=== PATIENT | female | born 1950 | race Caucasian/White ===

== ENCOUNTER → 2016-08-31 | Outpatient (CLI) | payer BC ==
[~2016-08-31] MED LIST: ACET-1138 PO; ACET-1256 PO; AMOX500T PO; ASPEC325 PO; ERGO500037 PO; FRRG PO; GABA600T PO; HYD50 PO; HYDR50TA3 PO; METF-384 PO; NCYSR50 PO; NVLGI7030 SC; POTA10CA28 PO; PRLSR20 PO; RXC5 PO; SIMV20TA2 PO; SITA100T3 PO; VTMD PO
[2016-08-31 13:49] LABS: BLOOD UREA NITROGEN 15 mg/dl (7-18); BUN/CREATININE RATIO 12.5 (10-20); CARBON DIOXIDE 29 mmol/L (21-32); CHLORIDE 101 mmol/L (98-107); CHOLESTEROL 121 mg/dl (0-200); GLUCOSE 133 mg/dl (70-99); SODIUM 138 mmol/L (136-145); TRIGLYCERIDES 148 mg/dl (0-150); VERY LOW DENSITY LIPOPROT CALC 30 mg/dl
[2016-08-31 13:53] LABS: ESTIMATED AVERAGE GLUCOSE 120 mg/dl; HA1C FLAG Normal (Normal)
[2016-08-31 13:54] LABS: CHOLESTEROL/HDL RATIO 3.8; HDL CHOLESTEROL 32 mg/dl; LDL CHOLESTEROL CALCULATED 59 mg/dl
== END | disposition home or self-care (01) ==
LOC: C.LABSPEC 12:17
PROVIDERS: ATTEND Internal Medicine
DX: Z00.00 Encounter for general adult medical examination without abnormal findings (principal); I10 Essential (primary) hypertension; E11.9 Type 2 diabetes mellitus without complications; E78.5 Hyperlipidemia, unspecified

== ENCOUNTER → 2016-09-02 | Outpatient (CLI) | payer BC | END | disposition home or self-care (01) | LOC: C.PAPS 08:31 | PROVIDERS: ATTEND Internal Medicine | DX: Z01.419 Encounter for gynecological examination (general) (routine) without abnormal findings (principal) ==

== ENCOUNTER 2016-09-09 18:39 | Inpatient (IN) | payer BC, OTHER ==
[~2016-09-09] VITALS: Ht 172.7 cm; Wt 116.9 kg
[~2016-09-09 18:39] MED LIST changes: -ACET-1256 PO; -AMOX500T PO; -ERGO500037 PO; -HYDR50TA3 PO
[2016-09-09] MEDS ORDERED: SODIUM CHLORIDE 0.9% 1000ML 1,000 ML IV ONE (18:58)
[2016-09-09] MEDS ORDERED: ACETAMINOPHEN 325 MG TAB PO ONE (19:00)
--- NOTE | 2016-09-09 19:11 | EMERGENCY ROOM VISIT NOTE ---
History Report prepared by Danilo: Kimberly Smalls Under the Supervision of: Dr. Shukri Palencia D.O. First contact with patient: 18:53 Chief Complaint: FEVER Stated Complaint: FALL, FEVER History of Present Illness The patient is a 66 year old female who presents to the Emergency Room with complaints of persistent fever starting 2 days ago. She reports that she got her pneumonia shot last week. Two days ago, she had fever, chills, and shivering. Her temperature has been as high as 103.6. This afternoon around 1500 she felt weak and fell. She was on the ground for 3 hours until her family found her because she was unable to get up. She has some coughing which is nonproductive. She denies any injury. She has a history of diabetes and high cholesterol. Source of History: patient, family Onset: 2 days ago Position: other (global) Quality: other (fever) Timing: other (persistent) Associated Symptoms: + chills, + cough, + fevers Note: Pt reports shivering. Review of Systems See HPI for pertinent positives & negatives. A total of 10 systems reviewed and were otherwise negative. Past Medical & Surgical Medical Problems: (1) PNEUMONIA, ELEV.TROP.,FALL (2) Right Knee DJD Family History No pertinent family history stated. Social History Smoking Status: Never Smoker Marital Status: single Occupation Status: retired Current/Historical Medications Scheduled Acetaminophen (Tylenol), 1,000 MG PO Q4 Ergocalciferol (Vitamin D 22802 Unit), 50,000 UNIT PO MONTHLY Gabapentin (Neurontin), 600 MG PO TID Hydrochlorothiazide (Hctz), 50 MG PO DAILY Insulin Aspart Protamine & Asp (Novolog Mix 70/30), 100 SC QAM Insulin Aspart Protamine & Asp (Novolog Mix 70/30), 75 SC QPM Metformin Hcl (Glucophage), 1,000 MG PO BID Omeprazole (Prilosec), 20 MG PO NOON Potassium Chloride (Micro-K Ext Rel), 20 MEQ PO BID Simvastatin (Zocor), 20 MG PO QPM Sitagliptin Phosphate (Januvia), 100 MG PO QAM Allergies Coded Allergies: Oxycodone (Verified Adverse Reaction, Unknown, NAUSEA WITH EMESIS, 11/20/15) Physical Exam Vital Signs Date Time Temp Pulse Resp B/P Pulse Ox O2 Delivery O2 Flow Rate FiO2 09/09/16 20:22 37.7 97 24 110/74 95 Nasal Cannula 3.0 09/09/16 19:24 99 09/09/16 19:01 95 Nasal Cannula 2.0 09/09/16 18:47 39.5 104 24 165/83 90 Room Air Physical Exam GENERAL: Patient is awake, alert, and non anxious appearing but comfortable. EYES: The conjunctivae are clear. The pupils are round and reactive. EARS, NOSE, MOUTH AND THROAT: The nose is without any evidence of any deformity. Mucous membranes are dry tongue is midline NECK: The neck is nontender and supple. RESPIRATORY: Lung sounds diminished throughout, rales at the right base, poor air movement was noted. CARDIOVASCULAR: Tachycardic rate, but regular rhythm, no definite murmurs noted to auscultation. GASTROINTESTINAL: The abdomen is soft. Bowel sounds are present in all quadrants. Abdomen is nontender MUSCULOSKELETAL/EXTREMITIES: There is no evidence of gross deformity full range of motion is noted in the hips and shoulders SKIN: There is no obvious evidence of any rash. There are no petechiae, pallor or cyanosis noted. NEUROLOGIC: Patient is awake alert and oriented x3 Medical Decision & Procedures ER Provider Diagnostic Interpretation: X-ray results as stated below per interpretation by me and the radiologist. CHEST ONE VIEW PORTABLE CLINICAL HISTORY: Sepsis. Fall. COMPARISON STUDY: Chest radiograph October 28, 2015. FINDINGS: There is no pneumothorax or pleural effusion. Moderate cardiomegaly is unchanged. There is no radiographic evidence of pulmonary edema. Left lung is clear. Asymmetric right mid and lower lung opacity measures approximately 11.2 cm. IMPRESSION: Extensive asymmetric right lung airspace opacity. Given the clinical history, this favors pneumonia. However, post treatment radiographs are recommended to exclude the possibility of an underlying mass. Electronically signed by: Gregor Berkowitz M.D. 09/09/2016 7:39 PM Dictated Date/Time: 09/09/2016 7:37 PM Laboratory Results 09/09/16 19:07 Red Blood Count 4.35, Mean Corpuscular Volume 90.3, Mean Corpuscular Hemoglobin 30.3, Mean Corpuscular Hemoglobin Concent 33.6, Mean Platelet Volume 9.8, Neutrophils (%) (Auto) 87.2, Lymphocytes (%) (Auto) 7.0, Monocytes (%) (Auto) 5.0, Eosinophils (%) (Auto) 0.2, Basophils (%) (Auto) 0.2, Neutrophils # (Auto) 8.05, Lymphocytes # (Auto) 0.65, Monocytes # (Auto) 0.46, Eosinophils # (Auto) 0.02, Basophils # (Auto) 0.02 09/09/16 19:07 Test 09/09/16 19:07 09/09/16 19:14 09/09/16 19:15 09/09/16 20:05 White Blood Count 9.24 K/uL (4.8-10.8) Red Blood Count 4.35 M/uL (4.2-5.4) Hemoglobin 13.2 g/dL (12.0-16.0) Hematocrit 39.3 % (37-47) Mean Corpuscular Volume 90.3 fL (80-100) Mean Corpuscular Hemoglobin 30.3 pg (25-34) Mean Corpuscular Hemoglobin Concent 33.6 g/dl (32-36) Platelet Count 130 K/uL (130-400) Mean Platelet Volume 9.8 fL (7.4-10.4) Neutrophils (%) (Auto) 87.2 % Lymphocytes (%) (Auto) 7.0 % Monocytes (%) (Auto) 5.0 % Eosinophils (%) (Auto) 0.2 % Basophils (%) (Auto) 0.2 % Neutrophils # (Auto) 8.05 K/uL (1.4-6.5) Lymphocytes # (Auto) 0.65 K/uL (1.2-3.4) Monocytes # (Auto) 0.46 K/uL (0.11-0.59) Eosinophils # (Auto) 0.02 K/uL (0-0.5) Basophils # (Auto) 0.02 K/uL (0-0.2) RDW Standard Deviation 46.8 fL (36.4-46.3) RDW Coefficient of Variation 14.2 % (11.5-14.5) Immature Granulocyte % (Auto) 0.4 % Immature Granulocyte # (Auto) 0.04 K/uL (0.00-0.02) Erythrocyte Sedimentation Rate 49 mm/hr (0-21) Prothrombin Time 12.2 SECONDS (9.0-12.0) Prothromb Time International Ratio 1.1 (0.9-1.1) Activated Partial Thromboplast Time 29.9 SECONDS (21.0-31.0) Partial Thromboplastin Ratio 1.2 Anion Gap 14.0 mmol/L (3-11) Est Creatinine Clear Calc Drug Dose 39.1 ml/min Estimated GFR () 31.5 Estimated GFR (Non- 27.2 BUN/Creatinine Ratio 9.5 (10-20) Calcium Level 8.8 mg/dl (8.5-10.1) Phosphorus Level 1.3 mg/dl (2.5-4.9) Magnesium Level 1.9 mg/dl (1.8-2.4) Total Bilirubin 1.0 mg/dl (0.2-1) Aspartate Amino Transf (AST/SGOT) 50 U/L (15-37) Alanine Aminotransferase (ALT/SGPT) 22 U/L (12-78) Alkaline Phosphatase 87 U/L (45-117) C-Reactive Protein 24.40 mg/dl (0-0.29) Pro-B-Type Natriuretic Peptide 640 pg/ml (0-900) Total Protein 7.8 gm/dl (6.4-8.2) Albumin 3.4 gm/dl (3.4-5.0) Globulin 4.4 gm/dl (2.5-4.0) Albumin/Globulin Ratio 0.8 (0.9-2) Lipase 96 U/L (73-393) Hepatitis C Antibody Screen NEG (NEG) Urine Color DK YELLOW Urine Appearance CLOUDY (CLEAR) Urine pH 5.5 (4.5-7.5) Urine Specific Arnold 1.030 (1.000-1.030) Urine Protein 3+ (NEG) Urine Glucose (UA) 2+ (NEG) Urine Ketones 1+ (NEG) Urine Occult Blood 3+ (NEG) Urine Nitrite NEG (NEG) Urine Bilirubin NEG (NEG) Urine Urobilinogen NEG (NEG) Urine Leukocyte Esterase TRACE (NEG) Urine WBC (Auto) 1-5 /hpf (0-5) Urine RBC (Auto) 0-4 /hpf (0-4) Urine Hyaline Casts (Auto) 10-30 /lpf (0-5) Urine Epithelial Cells (Auto) >30 /lpf (0-5) Urine Bacteria (Auto) NEG (NEG) Urine Renal Epithelial Cells /lpf (0-5) Urine Pathogenic Casts 1-5 WBC CASTS /lpf (0) Bedside Lactic Acid Venous 5.97 mmol/L (0.90-1.70) Venous Blood pH 7.45 (7.36-7.41) Venous Blood Partial Pressure CO2 32 mmHg (38.0-50.0) Venous Blood Partial Pressure O2 60 mmHg Venous Blood HCO3 22 meq/L Venous Blood Oxygen Saturation 90.0 % Venous Blood Base Excess -1.1 mmol/L Laboratory results per my review. Medications Administered Medications (Trade) Dose Ordered Sig/Luci Route Start Time Stop Time Status Last Admin Dose Admin Sodium Chloride (Nss 1000ml) 1,000 ml @ 999 mls/hr Q1H1M ONCE IV 09/09/16 18:58 09/09/16 19:58 DC 09/09/16 19:02 999 MLS/HR Acetaminophen (Tylenol Tab) 650 mg ONE ONCE PO 09/09/16 19:00 09/09/16 19:01 DC 09/09/16 19:06 650 MG Levofloxacin 750 mg 750 mg NOW STAT IV 09/09/16 19:51 09/09/16 19:52 DC 09/09/16 20:16 750 MG Sodium Chloride 1,000 ml @ 250 mls/hr Q4H STAT IV 09/09/16 20:37 09/09/16 23:31 DC 09/09/16 20:42 250 MLS/HR Ceftriaxone Sodium 2000 mg/ Dextrose 70 ml @ 100 mls/hr ONE STAT IV 09/09/16 21:10 09/09/16 21:51 DC 09/09/16 21:49 100 MLS/HR Sodium Chloride (Nss 1000ml) 1,000 ml @ 100 mls/hr Q10H IV 09/09/16 21:15 10/09/16 21:14 09/10/16 00:05 100 MLS/HR ECG Indication: other (fall) Rate (beats per minute): 104 Rhythm: sinus tachycardia Findings: other (inferior and lateral ST segment depression, no PVC) Comparison ECG Date: Change: ST segment changes new ED Course 185: The patient was evaluated in room B11B. A complete history and physical examination were performed. 1857: NSS 1000 ml @ 999 mls/hr IV. 1899: Acetaminophen 650 mg PO. 1950: Levofloxacin 750 mg IV. 2027: I reevaluated the patient. I discussed results and treatment plan with her. She verbalizes agreement and understanding. The patient will be evaluated for further management and care. 2034: I discussed the patient's case with Dr. Pierre, [facility] - internal medicine. The patient will be evaluated for further management. 2036: NSS 1000 ml @ 250 mls/hr IV. Medical Decision Prior records/ancillary studies reviewed. Triage Nursing notes reviewed. Additional history obtained from family. Medication Reconciliation: I attest that I have personally reviewed the patient' s current medications list. The patient's history was concerning for fever. Differential diagnosis: Etiologies such as viral syndrome, otitis, pharyngitis, pneumonia, influenza, meningitis, urinary tract infection, sepsis, bacteremia, as well as others were entertained. The patient is an 66-year-old female who presented to the emergency department for an evaluation of fever weakness. The patient states that she started feeling weak over the last few days. She noted she had a fever and went to see her family doctor. At that time she was feeling somewhat better after taking antipyretics. Her family doctor encouraged her to get a pneumonia vaccination and schedule her for follow-up appointments. The patient continued to experience fever while at home. She tried to treat herself at home but became very weak and fell and was unable to stand. She appeared to have signs of a right-sided pneumonia on chest x-ray. She was treated with IV fluids and antipyretics and IV antibiotics in the emergency department. I discussed the patient's laboratory and radiographic studies with her which included pneumonia on chest x-ray as well as an elevated CPK which I feel is secondary to the patient's falling and lying on the floor for multiple hours. I discussed her case with her primary care physician who is agreed to evaluate the patient in the emergency department for further management and disposition. Consults Time Called: 2029 Consulting Physician: Dr. Pierre, [facility] - internal medicine Returned Call: 2034 I discussed the patient's case with him. The patient will be evaluated for further management. Impression Primary Impression: Pneumonia Additional Impressions: Fever Rhabdomyolysis Acute kidney injury Weakness Scribe Attestation The scribe's documentation has been prepared under my direction and personally reviewed by me in its entirety. I confirm that the note above accurately reflects all work, treatment, procedures, and medical decision making performed by me. Departure Information Dispostion Being Evaluated By Hospitalist Referrals Jose Miguel Garcia M.D. (PCP) Patient Instructions My [facility] Problem Qualifiers Primary Impression: Pneumonia Pneumonia type: due to unspecified organism Laterality: right Lung location : unspecified part of lung Qualified Codes: J18.9 - Pneumonia, unspecified organism Additional Impressions: Fever Fever type: unspecified Qualified Codes: R50.9 - Fever, unspecified Rhabdomyolysis Rhabdomyolysis type: traumatic Encounter type: initial encounter Qualified Codes: T79.6XXA - Traumatic ischemia of muscle, initial encounter
[2016-09-09 19:38] LABS: HEMATOCRIT 39.3 % (37-47); MEAN CELL VOLUME 90.3 fL (80-100); MEAN CORPUSCULAR HEMOGLOBIN 30.3 pg (25-34); MEAN CORPUSCULAR HGB CONC 33.6 g/dl (32-36); MEAN PLATELET VOLUME 9.8 fL (7.4-10.4); PLATELET COUNT 130 K/uL (130-400); RED BLOOD COUNT 4.35 M/uL (4.2-5.4); WHITE BLOOD COUNT 9.24 K/uL (4.8-10.8)
[2016-09-09 19:40] LABS: URINE APPEARANCE CLOUDY (CLEAR); URINE COLOR DK YELLOW; URINE EPITHELIAL CELL AUTO >30 /lpf (0-5); URINE NITRITE NEG (NEG); URINE PH 5.5 (4.5-7.5); UROBILINOGEN NEG (NEG); ZZURINE CULT IF INDIC CATH NO
--- NOTE | 2016-09-09 19:40 | DIAGNOSTIC IMAGING REPORT ---
CHEST ONE VIEW PORTABLE CLINICAL HISTORY: Sepsis. Fall. COMPARISON STUDY: Chest radiograph October 28, 2015. FINDINGS: There is no pneumothorax or pleural effusion. Moderate cardiomegaly is unchanged. There is no radiographic evidence of pulmonary edema. Left lung is clear. Asymmetric right mid and lower lung opacity measures approximately 11.2 cm. IMPRESSION: Extensive asymmetric right lung airspace opacity. Given the clinical history, this favors pneumonia. However, post treatment radiographs are recommended to exclude the possibility of an underlying mass. Electronically signed by: Gregor Berkowitz M.D. 09/09/2016 7:39 PM Dictated Date/Time: 09/09/2016 7:37 PM
[2016-09-09 19:47] LABS: INR 1.1 (0.9-1.1); PARTIAL THROMBOPLASTIN RATIO 1.2; PROTHROMBIN TIME (PATIENT) 12.2 SECONDS (9.0-12.0)
[2016-09-09] MEDS ORDERED: LEVAQUIN 750MG / 150ML D5W IV STA (19:51)
[2016-09-09 19:55] LABS: MANUAL MICROSCOPIC REQUIRED? NO; REVIEW REQ? YES; URINE BILIRUBIN NEG (NEG)
[2016-09-09 20:00] LABS: BASO % 0.2 %; BASO ABS # 0.02 K/uL (0-0.2); COMPLETE YES; EOS % 0.2 %; IG% 0.4 %; LYMPH ABS # 0.65 K/uL (1.2-3.4); NEUT % 87.2 %
[2016-09-09 20:01] LABS: BUN/CREATININE RATIO 9.5 (10-20); CALCIUM 8.8 mg/dl (8.5-10.1); CREATININE 1.9 mg/dl (0.60-1.20); MAGNESIUM 1.9 mg/dl (1.8-2.4); POTASSIUM 3.9 mmol/L (3.5-5.1)
[2016-09-09 20:11] LABS: URINE PATH CASTS 1-5 WBC CASTS /lpf (0)
[2016-09-09 20:26] LABS: VEN BLOOD GAS BASE EXCESS -1.1 mmol/L; VENOUS BLOOD GAS PCO2 32 mmHg (38.0-50.0); VENOUS BLOOD GAS PO2 60 mmHg
[2016-09-09 20:34] LABS: ALB/GLOB RATIO 0.8 (0.9-2); C-REACTIVE PROTEIN 24.4 mg/dl (0-0.29); CKMB/CK RATIO 0.1 (0-3.0); PHOSPHORUS 1.3 mg/dl (2.5-4.9)
[2016-09-09] MEDS ORDERED: SODIUM CHLORIDE 0.9% 1000ML 1,000 ML IV STA (20:37)
[2016-09-09] MEDS ORDERED: ACET-1256 PO (20:45)
[2016-09-09] MEDS ORDERED: ERGO500037 PO (20:49)
[2016-09-09] MEDS ORDERED: HYDR50TA3 PO (20:49)
[2016-09-09] MEDS ORDERED: SODIUM PHOSPHATE 3 MMOL/1 ML INFUSION IV STA (21:10)
[2016-09-09] MEDS ORDERED: CEFTRIAXONE SOD INJ 2,000 MG in DEXTROSE 5% 50ML 50 ML IV STA (21:10)
[2016-09-09] MEDS ORDERED: SODIUM PHOSPHATE INJ 21 MMOL in SODIUM CHLORIDE 0.9% 500ML 500 ML IV STA (21:37)
[2016-09-09 23:13] VITALS: BP 127/78; PULSE 87; TEMP 37; O2SAT 87; Ht 172.7 cm; Wt 116.9 kg
--- NOTE | 2016-09-09 23:48 | HISTORY & PHYSICAL EXAMINATION ---
DATE OF ADMISSION: 09/09/2016 REASON FOR ADMISSION: A 66-year-old female admitted with fever and chills and evidence of right-sided pneumonia. HISTORY OF PRESENT ILLNESS: The patient with multiple medical problems including type 2 diabetes mellitus, history of renal cell carcinoma status post left nephrectomy, chronic kidney disease, arterial hypertension, sleep apnea, chronic thrombocytopenia. The patient was seen in the office on 09/02/2016 for her yearly physical examination. At that time, she was doing quite well. Her laboratory tests were all checked, her diabetes was well under control and her blood pressure was controlled. Her examination was quite unremarkable. Two days ago, on Monday, she started feeling ill. She had fever up to 103. She was complaining of chills and sweating. When I saw her in the office on 09/02/2016, she was given a Pneumovax. She describes that she was having some inflammation and irritation in the site of the Pneumovax injection. Initially, I thought that she was most likely having an allergic reaction to the Pneumovax. She was asked to take Tylenol. Subsequently, the patient started to have nasal and chest congestion. She was complaining of cough. Did not produce any purulent sputum. She was having fever and chills. She was getting short of breath. This afternoon around 3:30, she was at home. She stood up to walk and she felt lightheaded and she fell to the floor. She could not get up on her own. She stayed on the floor for about 3-1/2 hours until a family member came to her assistance. Ambulance was called and the patient was brought to the Emergency Room. She was evaluated by Dr. Palencia. Multiple tests were done. Her chest x-ray showed evidence of extensive right-sided pneumonia. I saw the patient in the Emergency Room. She was feeling acutely ill. Feeling weak and tired. She was sweating. Initially in the Emergency Room, her temperature was 39.5. After the cultures were done, Dr. Palencia started her on IV Levaquin and she received one dose. She was also given IV fluid. After I saw Ms. Thompson in the Emergency Room because of her condition and also the noted elevation in her troponin I, she was admitted to PCU with telemetry for further evaluation. PAST MEDICAL HISTORY: 1. Arterial hypertension. Longstanding. Treated. 2. Type 2 diabetes mellitus. First diagnosed in 2001. She has complications with peripheral neuropathy and also retinopathy. 3. Sleep apnea diagnosed in 2006. She uses a CPAP with a pressure of 8 cm. 4. Right total knee arthroplasty for severe osteoarthritis done on 11/20/2015. 5. Renal cell carcinoma diagnosed in May of 2007. She was seen in the office for her regular followup and on examination, she had a mass in the upper abdominal area. A CT scan of the abdomen and pelvis was done which showed evidence of a renal mass. Subsequently, she had a left nephrectomy. Her condition has been monitored. She has no evidence of any reoccurrence. SOCIAL HISTORY: She is single. No children. She is retired. She does have a history of smoking, but she has not smoked for at least 15 years. Denied any alcohol. FAMILY HISTORY: Her mother in her 70s, she had metastatic renal cell carcinoma. She was diagnosed with a renal cell carcinoma about 4 years prior to her and she was treated with cryotherapy at [facility] and subsequently she had recurrence of her disease with lung metastases. Her father also in his 70s, has coronary artery disease, he was also diabetic. One sister at age 32 of respiratory failure. ALLERGIES: GI INTOLERANCE WITH OXYCODONE. MEDICATIONS ON ADMISSION: All as noted. REVIEW OF SYSTEMS: She is feeling acutely ill. Feeling weak and tired. She has had fever, chills. Sweating profusely. Denied any earache or sore throat. No neck pain. Denied any chest pain. She is coughing. Not producing any significant sputum up to this point. Denied any abdominal pain. No nausea, no vomiting. No problem with her bowel movements. No urinary problem. No pain in her back or extremities. No edema. PHYSICAL EXAMINATION: GENERAL: Well developed. Acutely ill. Her recorded weight is 114.2 kg, height 172.7 cm, BMI 38.2. VITAL SIGNS: On arrival to the Emergency Room, her blood pressure was 165/83, pulse 104, respirations 24, temperature 39.5, oxygen saturation 90% on room air. SKIN: Warm and dry. Flushed. HEENT: She wears glasses for reading. As noted, she has been diagnosed in the past with retinopathy. She does have dentures. NECK: Supple. Nontender. No adenopathy, no thyromegaly. No JVD. Normal carotid pulses. No carotid bruit. CHEST: Normal. HEART: Regular heart sounds. No evident murmur, rub, or gallop. LUNGS: Rales, right lung field. Some wheezing bilaterally. Rhonchi. ABDOMEN: Soft, nontender, without organomegaly or masses. Surgical scars. BACK: No spinal tenderness. EXTREMITIES: No edema, clubbing, or cyanosis. She does have a right knee effusion since her surgery. Scar right knee from prior surgery. Good pulses. Bruised left elbow. NEUROLOGIC: She is awake, alert and oriented without evidence of any lateralized deficit. She does have known peripheral neuropathy. LABORATORY TESTS: WBC count 9240, hemoglobin 13.2, hematocrit 39.3, platelet count 130,000. Sodium 132, potassium 3.9, chloride 95, CO2 23, BUN of 18, creatinine 1.9, glucose 251. Calcium 8.8, phosphorus 1.3, magnesium 1.9, total bilirubin 1.0, AST 50, ALT 22, alkaline phosphatase 87. Total CK 4267, MB fraction 3.2, troponin I 0.466. C-reactive protein 24.4. BNP 640, total protein 7.8, albumin 3.4, globulin 4.4, lipase 9.6. Her urinalysis showed 3+ protein, 2+ glucose, 1+ ketones and 3+ blood, leukocyte esterase were trace. IMAGING DATA: Her electrocardiogram showed no acute changes. Her chest x-ray showed an extensive right lung airspace opacity consistent with pneumonia. The opacity measured 11.2 cm. ASSESSMENT: 1. Right-sided pneumonia. 2. Rule out sepsis. 3. Acute renal failure. 4. Chronic kidney disease. 5. History of renal cell carcinoma status post left nephrectomy. 6. Type 2 diabetes mellitus. 7. Arterial hypertension. 8. Sleep apnea. 9. Osteoarthritis. PLAN: The patient was admitted to PCU with telemetry. Resuscitation level 1. All her laboratory tests were ordered. Cultures were done. Cardiac isoenzymes and serial electrocardiograms were ordered. The marked elevation in her total CK is most likely related to her fall and the fact that she was on the floor for about 3-1/2 hours and she does have an acute febrile illness. Dr. Palencia did give her a dose of Levaquin. Her antibiotic was changed to Rocephin and Zithromax. IV fluid. Correcting her phosphorus. Will ask a family member to bring her CPAP from home, so she can use it during her hospitalization. Her condition is being monitored. All her laboratory tests and cultures were done. She is on IV antibiotics, also given Xopenex high flow treatment. Tylenol for any fever. Subcutaneous heparin and ROMÁN stockings for DVT prophylaxis. OLESYA
[2016-09-10] VITALS (10 sets, daily range): BP systolic 111–136; BP diastolic 67–80; PULSE 70–96; TEMP 37–38.6; O2SAT 92–98
[2016-09-10] MEDS: SODIUM CHLORIDE 0.9% 1000ML 1,000 ML IV SCH ×3 (00:05→19:41)
[2016-09-10] MEDS: INSULIN ASPART 100 UNITS/ML 3 ML PEN SC SCH ×5 (00:44→20:42)
[2016-09-10 01:40] LABS: CKMB/CK RATIO 0.1 (0-3.0)
[2016-09-10] MEDS: LEVALBUTEROL 1.25MG/3ML NEB INH SCH ×4 (02:09→19:11)
[2016-09-10] MEDS: ACETAMINOPHEN 325 MG TAB PO PRN ×3 (04:37→20:44)
[2016-09-10] MEDS: AZITHROMYCIN IV 500 MG in DEXTROSE 5% 250ML 250 ML IV SCH (05:34)
[2016-09-10 06:42] LABS: BASO % 0.2 %; BASO ABS # 0.01 K/uL (0-0.2); COMPLETE YES; HEMATOCRIT 33.8 % (37-47); IG% 0.2 %; LYMPH ABS # 0.82 K/uL (1.2-3.4); MEAN CELL VOLUME 90.1 fL (80-100); MEAN CORPUSCULAR HEMOGLOBIN 30.7 pg (25-34); MEAN PLATELET VOLUME 9.6 fL (7.4-10.4); MONO % 10.8 %; NEUT % 73.8 %; PLATELET COUNT 109 K/uL (130-400); RED BLOOD COUNT 3.75 M/uL (4.2-5.4); WHITE BLOOD COUNT 5.86 K/uL (4.8-10.8)
[2016-09-10 07:32] LABS: ALB/GLOB RATIO 0.7 (0.9-2); BUN/CREATININE RATIO 12.8 (10-20); CALCIUM 7.8 mg/dl (8.5-10.1); CREATININE 1.4 mg/dl (0.60-1.20); MAGNESIUM 1.8 mg/dl (1.8-2.4)
[2016-09-10 07:43] LABS: CKMB/CK RATIO 0.1 (0-3.0); PHOSPHORUS 2.2 mg/dl (2.5-4.9)
[2016-09-10] MEDS ORDERED: POTASSIUM PHOS 3 MMOL/1 ML INFUSION IV STA (08:10)
[2016-09-10] MEDS: HEPARIN SOD 5000 UNIT/0.5 ML CARP SQ SCH ×2 (08:35→20:42)
[2016-09-10] MEDS ORDERED: POTASSIUM CHLORIDE 10 MEQ TABCR PO ONE (08:45)
[2016-09-10] MEDS ORDERED: POTASSIUM PHOSPHATE INJ 15 MMOL in SODIUM CHLORIDE 0.9% 250ML 250 ML IV SCH (09:00)
--- NOTE | 2016-09-10 16:22 | PROGRESS NOTE ---
DATE: 09/10/2016 A 66-year-old female admitted with multiple problems includin. Right-sided pneumonia, extensive. 2. Suspected sepsis. 3. Acute renal failure. 4. Chronic kidney disease. 5. Rhabdomyolsis. 6. History of renal cell carcinoma with history of left nephrectomy. 7. Type 2 diabetes mellitus. 8. Arterial hypertension. 9. Elevated troponin I. The patient was admitted. Cultures were done. She was started on IV antibiotics. She did receive 1 dose of Levaquin 750 mg in the Emergency Room. Subsequently, she was started on Rocephin and Zithromax. Overall, her condition is slightly improved. She is still feeling weak and achy all over. Her maximum temperature was 38 degrees at 427 this morning but subsequently she has been afebrile. She is feeling weak and tired. She denied any headache. No dizziness. No chest pain. No shortness of breath. She is having a cough, not producing any sputum yet. No abdominal pain, no nausea, no vomiting. No problem urinating. She is complaining of generalized aches and pains. PHYSICAL EXAMINATION: GENERAL: Well-developed in no distress. VITAL SIGNS: Blood pressure 115/72, pulse 79, respirations 18, temperature 37.2, oxygen saturation 95% on 2 liter oxygen by nasal cannula. SKIN: Warm and dry. No rash. HEENT: No mucosal abnormality. NECK: No JVD. No adenopathy. HEART: Regular heart sounds. LUNGS: Rales right side. No wheezing. ABDOMEN: Soft, nontender. BACK: No spinal tenderness. EXTREMITIES: No edema, clubbing, or cyanosis. TODAY'S LABORATORY TESTS: WBC count 5860, hemoglobin 11.5, hematocrit 33.8, platelet count 109,000. Sodium 137, potassium 3.0, chloride 101, CO2 24, BUN 18, creatinine 1.4, glucose 175, calcium 7.8, phosphorus 2.2, magnesium 1.8, total bilirubin 0.6, AST 198, ALT 43, alkaline phosphatase 65, total CPK 13,668, MB fraction 11.6, troponin I 1.58, total protein 6.6, albumin 2.6, globulin 4.0. ASSESSMENT: 1. Right-sided pneumonia, extensive. 2. Rhabdomyolysis. 3. Fall. She spent about 3-1/2 hours on the floor before she was able to get any help to help her up. 4. Hypokalemia. 5. Hypophosphatemia. 6. Type 2 diabetes mellitus. 7. Arterial hypertension. 8. History of renal cell carcinoma status post left nephrectomy. 9. Acute and chronic kidney disease. PLAN: 1. Continuing the same medications. 2. We will correct her potassium and phosphorus. 3. Continue IV fluid. Continue Rocephin and Zithromax. 4. We will continue monitoring her laboratory tests. 5. Cultures are still pending. 6. We will gradually increase her activity.
[2016-09-10] MEDS: CEFTRIAXONE SOD INJ 2,000 MG in DEXTROSE 5% 50ML 50 ML IV SCH (21:10)
[2016-09-11] VITALS (10 sets, daily range): BP systolic 113–122; BP diastolic 61–74; PULSE 76–88; TEMP 36.8–37.6; O2SAT 90–94
[2016-09-11] MEDS: LEVALBUTEROL 1.25MG/3ML NEB INH SCH ×4 (02:04→19:05)
[2016-09-11] MEDS: AZITHROMYCIN IV 500 MG in DEXTROSE 5% 250ML 250 ML IV SCH (05:15)
[2016-09-11] MEDS: SODIUM CHLORIDE 0.9% 1000ML 1,000 ML IV SCH ×3 (05:16→22:12)
[2016-09-11 06:24] LABS: BASO % 0.4 %; BASO ABS # 0.02 K/uL (0-0.2); COMPLETE YES; EOS % 2.7 %; HEMATOCRIT 32.7 % (37-47); IG% 0.4 %; LYMPH % 14.9 %; LYMPH ABS # 0.71 K/uL (1.2-3.4); MEAN CELL VOLUME 89.1 fL (80-100); MEAN CORPUSCULAR HGB CONC 33.6 g/dl (32-36); MEAN PLATELET VOLUME 9.5 fL (7.4-10.4); MONO % 9.3 %; NEUT % 72.3 %; PLATELET COUNT 109 K/uL (130-400); RED BLOOD COUNT 3.67 M/uL (4.2-5.4); WHITE BLOOD COUNT 4.75 K/uL (4.8-10.8)
[2016-09-11 07:22] LABS: BUN/CREATININE RATIO 12.5 (10-20); CALCIUM 7.6 mg/dl (8.5-10.1); CREATININE 1.2 mg/dl (0.60-1.20); MAGNESIUM 1.8 mg/dl (1.8-2.4); POTASSIUM 3.6 mmol/L (3.5-5.1)
[2016-09-11 07:46] LABS: ALB/GLOB RATIO 0.7 (0.9-2); PHOSPHORUS 1.8 mg/dl (2.5-4.9)
[2016-09-11] MEDS: INSULIN ASPART 100 UNITS/ML 3 ML PEN SC SCH ×4 (08:02→21:00)
[2016-09-11] MEDS: HEPARIN SOD 5000 UNIT/0.5 ML CARP SQ SCH ×2 (08:03→21:01)
[2016-09-11] MEDS ORDERED: POTASSIUM PHOS 3 MMOL/1 ML INFUSION IV STA (08:15)
[2016-09-11] MEDS ORDERED: POTASSIUM PHOSPHATE INJ 21 MMOL in SODIUM CHLORIDE 0.9% 500ML 500 ML IV SCH (09:00)
--- NOTE | 2016-09-11 16:48 | PROGRESS NOTE ---
DATE: 09/11/2016 A 66-year-old female admitted with multiple problems includin. Extensive right mid and lower lung pneumonia. 2. Fall. 3. Rhabdomyolysis. 4. Severe hypomagnesemia. 5. Sleep apnea. 6. Type 2 diabetes mellitus. 7. Arterial hypertension. 8. Hyperlipidemia. 9. History of renal cell carcinoma status post left nephrectomy. The patient was admitted. Cultures were done. All her laboratory tests were ordered. She was started on IV antibiotic with Rocephin and Zithromax. Prior to that, she received 1 dose of Levaquin 750 mg IV in the Emergency Room. She was started on high flow treatment, given oxygen by nasal canula. The patient is complaining of generalized weakness and fatigue and muscle ache, this is all related to her rhabdomyolysis. She denied any headache. No dizziness. No chest pain. No shortness of breath. Her oxygenation has improved. No abdominal pain, no nausea, no vomiting. She did have a bowel movement. No problem urinating. She is complaining of generalized ache and pain in her back and extremities. So far, all her cultures have been negative. PHYSICAL EXAMINATION: GENERAL: Well-developed in no distress. VITAL SIGNS: Blood pressure 119/71, pulse 85, respirations 16, temperature 37.1, oxygen saturation 92% on room air. SKIN: Warm and dry. No rash. Hirsutism. HEENT: She has dentures. No mucosal abnormalities. NECK: No JVD, no adenopathy. HEART: Regular heart sounds. LUNGS: Rales right side. No wheezing. ABDOMEN: Soft, nontender. BACK: No spinal tenderness. EXTREMITIES: No edema, clubbing, or cyanosis. TODAY'S LABORATORY TESTS: WBC count 4750, hemoglobin 11, hematocrit 32.7, platelet count 109,000. Sodium 136, potassium 3.6, chloride 102, CO2 25, BUN 15, creatinine 1.2, glucose 165, calcium 7.6, phosphorus 1.8, magnesium 1.8, AST 254, ALT 71, total CK 12,160, MB fraction 5.6, troponin I of 0.443, total protein 6.4, albumin 2.6. ASSESSMENT: 1. Right-sided pneumonia, extensive. 2. Fall. 3. Rhabdomyolysis. 4. Sleep apnea. 5. Hypophosphatemia. 6. Type 2 diabetes mellitus. 7. History of renal cell carcinoma with prior left nephrectomy. PLAN: 1. Continuing the same medications. 2. Continue correcting her electrolytes as needed. 3. As noted, all her cultures have been negative so far. 4. We will try to increase her activity gradually. 5. An echocardiogram was ordered. 6. Her CK and CK-MB and troponin I are drifting down. We will continue monitoring. 7. We will repeat a chest x-ray tomorrow.
--- NOTE | 2016-09-11 17:46 | ECHOCARDIOGRAM REPORT ---
*NOTICE TO RECEIVING REPUBLICAN AGENCY This information is strictly Confidential and protected under [place] law. [place] law prohibits you from making any further disclosure of this information unless further disclosure is expressly permitted by the written consent of the person to whom it pertains or is authorized by law. A general authorization for the release of medical or other information is not sufficient for this purpose. Hospital accepts no responsibility if the information is made available to any other person, INCLUDING THE PATIENT. Interpretation Summary * Name: LIZABETH ALMENDAREZ Study Date: 09/11/2016 01:27 PM BP: 119/71 mmHg * Patient Location: C.2T\S\S239\S\1 HR: 77 * : 1950 (M/d/yyyy) Gender: Female Height: 68 in * Age: 66 yrs Ethnicity: [place] Weight: 257 lb * Ordering Physician: Jose Miguel Garcia * Referring Physician: Self, Referred * Performed By: Gino Arceo RDCS * * Reason For Study: Elevated troponin * BSA: 2.3 m2 * -- Conclusions -- * 1. Normal left ventricular size and systolic function. EF 60-65%. No regional wall motion abnormalities. Moderate concentric left ventricular hypertrophy. * 2. Trace aortic regurgitation. Procedure Details * A complete two-dimensional transthoracic echocardiogram was performed (2D, M-mode, Doppler and color flow Doppler). * The study was technically adequate. Left Ventricle * Normal left ventricular size and systolic function. EF 60-65%. No regional wall motion abnormalities. Moderate concentric left ventricular hypertrophy. Right Ventricle * The right ventricle is normal in size and function. * The right ventricular systolic function is normal as assessed by tricuspid annular plane systolic excursion (TAPSE) (normal >1.5 cm). Atria * The left atrium is borderline dilated. * Right atrial size is normal. * There is no evidence of atrial septal defect, but resolution does not allow assessment for a patent foramen ovale. Mitral Valve * The mitral valve is grossly normal. * There is no mitral valve stenosis. * Trace to mild mitral regurgitation. Tricuspid Valve * The tricuspid valve is not well visualized. * There is no tricuspid stenosis. * There is trace tricuspid regurgitation. Aortic Valve * The aortic valve is trileaflet. * No hemodynamically significant valvular aortic stenosis. * Trace aortic regurgitation. Pulmonic Valve * The pulmonary valve is inadequately visualized, but the Doppler data is adequate for interpretation. * There is no pulmonic valvular stenosis. * Mild pulmonic valvular regurgitation. Great Vessels * Normal aortic root size for age adjusted BSA. * Normal pulmonary venous flow pattern. Pericardium/Pleural * There is no pericardial effusion. Great Vessels * Normal inferior vena cava size and collapsability with sniff indicates a normal right atrial pressure of 3 mmHg MMode 2D Measurements and Calculations IVSd 1.4 cm IVSs 2.1 cm LVIDd 5.2 cm LVIDs 3.4 cm LVPWd 1.4 cm LVPWs 2.1 cm IVS/LVPW 1.0 FS 34.0 % EDV(Teich) 129.3 ml ESV(Teich) 48.3 ml EF(Teich) 62.6 % EDV(cubed) 140.3 ml ESV(cubed) 40.2 ml EF(cubed) 71.3 % % IVS thick 50.0 % % LVPW thick 54.9 % LV mass(C)d 304.3 grams LV mass(C)dI 133.8 grams/m\S\2 LV mass(C)s 339.0 grams LV mass(C)sI 149.1 grams/m\S\2 SV(Teich) 80.9 ml SI(Teich) 35.6 ml/m\S\2 SV(cubed) 100.0 ml SI(cubed) 44.0 ml/m\S\2 EPSS 0.55 cm Ao root diam 4.2 cm Ao root area 13.7 cm\S\2 ACS 2.1 cm LA dimension 4.3 cm asc Aorta Diam 3.6 cm LA/Ao 1.0 LVOT diam 2.1 cm LVOT area 3.6 cm\S\2 LVAd ap4 23.8 cm\S\2 LVLd ap4 7.2 cm EDV(MOD-sp4) 65.0 ml LVAs ap4 14.4 cm\S\2 LVLs ap4 6.6 cm ESV(MOD-sp4) 27.0 ml EF(MOD-sp4) 58.5 % LVAd ap2 32.5 cm\S\2 LVLd ap2 8.4 cm EDV(MOD-sp2) 105.0 ml LVAs ap2 18.2 cm\S\2 LVLs ap2 6.8 cm ESV(MOD-sp2) 44.0 ml EF(MOD-sp2) 58.1 % SV(MOD-sp4) 38.0 ml SI(MOD-sp4) 16.7 ml/m\S\2 SV(MOD-sp2) 61.0 ml SI(MOD-sp2) 26.8 ml/m\S\2 Doppler Measurements and Calculations MV E max earline 114.8 cm/sec MV A max earline 81.4 cm/sec MV E/A 1.4 MV dec time 0.13 sec Ao V2 max 147.6 cm/sec Ao max PG 8.7 mmHg Ao max PG (full) 5.1 mmHg SHIRLEY(V,A) 2.3 cm\S\2 SHIRLEY(V,D) 2.3 cm\S\2 AI max earline 334.0 cm/sec AI max PG 44.6 mmHg AI dec slope 237.0 cm/sec\S\2 AI P1/2t 412.8 msec LV V1 max PG 3.6 mmHg LV V1 max 95.3 cm/sec PA V2 max 100.0 cm/sec PA max PG 4.0 mmHg PI end-d earline 121.9 cm/sec RAP systole 3.0 mmHg
[2016-09-11] MEDS: CEFTRIAXONE SOD INJ 2,000 MG in DEXTROSE 5% 50ML 50 ML IV SCH (20:56)
[2016-09-12] VITALS (11 sets, daily range): BP systolic 112–132; BP diastolic 66–82; PULSE 68–78; TEMP 36.4–37; O2SAT 90–96
[2016-09-12] MEDS: LEVALBUTEROL 1.25MG/3ML NEB INH SCH ×4 (02:41→19:30)
[2016-09-12] MEDS: AZITHROMYCIN IV 500 MG in DEXTROSE 5% 250ML 250 ML IV SCH (05:46)
[2016-09-12 06:47] LABS: BASO % 0.6 %; BASO ABS # 0.02 K/uL (0-0.2); COMPLETE YES; EOS % 4.5 %; HEMATOCRIT 33.7 % (37-47); IG% 0.8 %; LYMPH % 19.7 %; MEAN CELL VOLUME 89.4 fL (80-100); MEAN CORPUSCULAR HEMOGLOBIN 28.6 pg (25-34); MEAN PLATELET VOLUME 9.8 fL (7.4-10.4); MONO % 8.4 %; PLATELET COUNT 128 K/uL (130-400); RED BLOOD COUNT 3.77 M/uL (4.2-5.4); WHITE BLOOD COUNT 3.56 K/uL (4.8-10.8)
[2016-09-12 07:22] LABS: BUN/CREATININE RATIO 11.8 (10-20); CALCIUM 7.7 mg/dl (8.5-10.1); CREATININE 0.97 mg/dl (0.60-1.20); MAGNESIUM 1.9 mg/dl (1.8-2.4); POTASSIUM 3.7 mmol/L (3.5-5.1)
[2016-09-12 07:54] LABS: ALB/GLOB RATIO 0.7 (0.9-2); CKMB/CK RATIO 0.1 (0-3.0); PHOSPHORUS 2.1 mg/dl (2.5-4.9)
[2016-09-12] MEDS: INSULIN ASPART 100 UNITS/ML 3 ML PEN SC SCH ×4 (08:08→21:38)
[2016-09-12] MEDS: HEPARIN SOD 5000 UNIT/0.5 ML CARP SQ SCH ×2 (08:09→21:38)
[2016-09-12] MEDS ORDERED: POTASSIUM PHOS 3 MMOL/1 ML INFUSION IV STA (08:48)
[2016-09-12] MEDS ORDERED: POTASSIUM PHOSPHATE INJ 21 MMOL in SODIUM CHLORIDE 0.9% 500ML 500 ML IV SCH (09:30)
[2016-09-12] MEDS: SODIUM CHLORIDE 0.9% 1000ML 1,000 ML IV SCH (09:34)
--- NOTE | 2016-09-12 09:35 | DIAGNOSTIC IMAGING REPORT ---
CHEST 2 VIEWS ROUTINE HISTORY: pneumonia COMPARISON: Chest 09/04/2015. FINDINGS: The heart is stable in size. No pleural effusions. No pneumothorax. Mild interstitial thickening persists. Right upper lobe airspace opacity remains unchanged. IMPRESSION: No change in the right upper lobe airspace opacity. This likely represents a pneumonia. Recommend one month chest x-ray follow-up to ensure resolution. Electronically signed by: Simon Deal M.D. 09/12/2016 9:33 AM Dictated Date/Time: 09/12/2016 9:32 AM
[2016-09-12] MEDS ORDERED: LOPERAMIDE HCL 2 MG CAP PO PRN (10:45)
[2016-09-12 11:28] LABS: URINE APPEARANCE CLEAR (CLEAR); URINE BILIRUBIN NEG (NEG); URINE COLOR ORANGE; URINE EPITHELIAL CELL AUTO >30 /lpf (0-5); URINE NITRITE NEG (NEG); URINE SPECIFIC GRAVITY 1.023 (1.000-1.030); UROBILINOGEN NEG (NEG)
[2016-09-12 12:07] LABS: MANUAL MICROSCOPIC REQUIRED? NO; REVIEW REQ? NO
--- NOTE | 2016-09-12 17:38 | PROGRESS NOTE ---
DATE: 09/12/2016 SUBJECTIVE: A 66-year-old female admitted with extensive right-sided pneumonia. She also has severe rhabdomyolysis. She presented with acute renal failure. She is diabetic, hypertensive, has a history of renal cell carcinoma and underwent a left nephrectomy in the past. The patient was admitted. Cultures were done. She was started on IV antibiotics. She was hydrated. Her phosphorus level was markedly decreased. Supplementation was ordered. Her condition has markedly improved today compared to even yesterday. She was sitting in the chair. She has been getting out of bed and walking to the bathroom. She has remained afebrile. Denied any headache or dizziness. No chest pain, no shortness of breath. She does have a cough but not producing any sputum. No nausea, no vomiting. Yesterday, she had 5 bowel movements. The stool was checked for C. diff and it was negative. No urinary problem. Denied any pain in her back or extremities. PHYSICAL EXAMINATION: GENERAL: Well developed in no distress. VITAL SIGNS: Blood pressure 112/67, pulse 73, respirations 18, temperature 36.7, oxygen saturation 90% on room air. SKIN: Warm and dry. No rash. HEENT: No mucosal abnormality. NECK: No JVD. No adenopathy. HEART: Regular heart sounds. LUNGS: Rales right side. No wheezing. ABDOMEN: Soft, nontender. BACK: No spinal tenderness. EXTREMITIES: No edema, clubbing, or cyanosis. LABORATORY TESTS: Today - WBC count 3560, hemoglobin 10.8, hematocrit 33.7, platelet count 128,000. Sodium 140, potassium 3.7, chloride 107, CO2 26, BUN 11, creatinine 0.97, glucose 151. Calcium 7.7, phosphorus 2.1, magnesium 1.9, total bilirubin 0.5, AST 244, ALT 90, alkaline phosphatase 79, total CK 7855. Her MB fraction is 4.2. Her troponin I is down to 0.163. Total protein 6.4, albumin 2.6, globulin 3.8. IMAGING DATA: Her chest x-ray showed the right side changes consistent with her pneumonia. Urinalysis was also done. There is evidence of positive leukocyte esterase, 10-30 wbc's. A urine culture was sent and is pending. ASSESSMENT: 1. Extensive right-sided pneumonia. 2. Rhabdomyolysis. 3. Acute renal failure. 4. Hypophosphatemia. 5. History of renal cell carcinoma status post left nephrectomy. 6. Type 2 diabetes mellitus. 7. Arterial hypertension. PLAN: 1. Discontinued her IV fluids. 2. Continuing her IV antibiotics. 3. Additional potassium phosphate was ordered. 4. Imodium was ordered for her diarrhea. 5. She was able to walk without any assistance around the unit in PCU without any problem. 6. She was transferred to medical bed. 7. Will continue her medications and continue monitoring her condition. She is ambulating. I do not anticipate any need for home health nurses or any therapies.
[2016-09-12] MEDS: CEFTRIAXONE SOD INJ 2,000 MG in DEXTROSE 5% 50ML 50 ML IV SCH (21:25)
[2016-09-13] VITALS (7 sets, daily range): BP systolic 123–130; BP diastolic 69–79; PULSE 67–84; TEMP 36.3–36.8; O2SAT 90–96
[2016-09-13] MEDS: LEVALBUTEROL 1.25MG/3ML NEB INH SCH ×4 (03:00→19:28)
[2016-09-13] MEDS: AZITHROMYCIN IV 500 MG in DEXTROSE 5% 250ML 250 ML IV SCH (06:09)
[2016-09-13 06:32] LABS: BASO % 0.5 %; BASO ABS # 0.02 K/uL (0-0.2); COMPLETE YES; EOS % 3.8 %; HEMATOCRIT 34.5 % (37-47); IG% 0.5 %; LYMPH % 23.4 %; LYMPH ABS # 1.04 K/uL (1.2-3.4); MEAN CELL VOLUME 90.3 fL (80-100); MEAN CORPUSCULAR HEMOGLOBIN 30.6 pg (25-34); MEAN CORPUSCULAR HGB CONC 33.9 g/dl (32-36); MONO % 7.9 %; NEUT % 63.9 %; PLATELET COUNT 161 K/uL (130-400); RED BLOOD COUNT 3.82 M/uL (4.2-5.4); WHITE BLOOD COUNT 4.44 K/uL (4.8-10.8)
[2016-09-13 06:59] LABS: BUN/CREATININE RATIO 11.4 (10-20); CALCIUM 8.2 mg/dl (8.5-10.1); CREATININE 0.97 mg/dl (0.60-1.20); POTASSIUM 3.9 mmol/L (3.5-5.1)
[2016-09-13 07:38] LABS: ALB/GLOB RATIO 0.7 (0.9-2); CKMB/CK RATIO 0.1 (0-3.0)
[2016-09-13] MEDS: INSULIN ASPART 100 UNITS/ML 3 ML PEN SC SCH ×4 (08:36→21:23)
[2016-09-13] MEDS: HEPARIN SOD 5000 UNIT/0.5 ML CARP SQ SCH ×2 (08:37→21:23)
[2016-09-13] MEDS: CEFTRIAXONE SOD INJ 2,000 MG in DEXTROSE 5% 50ML 50 ML IV SCH (21:23)
--- NOTE | 2016-09-13 22:05 | PROGRESS NOTE ---
DATE: 09/13/2016 A 66-year-old female, admitted with extensive right-sided pneumonia. Her medical problems include; type 2 diabetes mellitus, arterial hypertension, history of renal cell carcinoma status post left nephrectomy and sleep apnea. The patient was admitted. Cultures were done. She was started on IV antibiotics and also given high-flow treatments with Xopenex. Her condition improved. She remained afebrile after her admission. She also had evidence of severe rhabdomyolysis. She fell down prior to her admission and she was on the floor for about 3 hours or more until she was able to get some help. At this time, she is resting comfortably. She is getting out of bed and walking in the hallway without any problem. She denied any headache or dizziness. No chest pain, no shortness of breath. Has slight cough, but no sputum. No abdominal pain. No nausea, no vomiting. She has had multiple bowel movements, but that has slowed down. No urinary problem. No pain in her back or extremities. PHYSICAL EXAMINATION: GENERAL: Well-developed, in no distress. VITAL SIGNS: Blood pressure 126/74, pulse 67, respirations 16, temperature 36.5 and oxygen saturation 92% on room air. SKIN: Warm and dry. No rash. HEENT: No evidence of any mucosal abnormalities. NECK: No JVD. No adenopathy. HEART: Regular heart sounds with 2/6 systolic murmur. LUNGS: She does have rales on the right side. ABDOMEN: Soft and nontender. EXTREMITIES: No edema, clubbing or cyanosis. TODAY'S LABORATORY TESTS: WBC count 4440, hemoglobin 11.7, hematocrit 34.5 and platelet count 161,000. Sodium 140, potassium 3.9, chloride 107, CO2 25, BUN 11, creatinine 0.97, glucose 160, calcium 8.2, phosphorus 3.0, total bilirubin 0.5, AST 185, ALT 96, alkaline phosphatase 87, total CPK 4062, MB fraction 3.8, troponin I 0.065, total protein 6.7 and albumin 2.7. All her cultures have been negative. Her stool was negative for Clostridium difficile. Her urine culture was negative. ASSESSMENT: 1. Right-sided pneumonia, extensive. 2. Fall prior to her admission. 3. Rhabdomyolysis. 4. Type 2 diabetes mellitus. 5. Hypophosphatemia. 6. Acute renal failure, resolved. 7. Arterial hypertension. 8. History of renal cell carcinoma status post left nephrectomy. PLAN: 1. Continuing the same medications. 2. Her blood sugar is being monitored and she is just on coverage at this time. 3. Her total CPK, CK-MB and troponin I are all improving. Her phosphorus was corrected. Her potassium is normal. 4. Encouraged to continue with ambulation. She is doing quite well on her own. 5. If her condition remains stable and no new issues develop overnight, I anticipate discharging her home tomorrow morning. OLESYA
[2016-09-14] MEDS: LEVALBUTEROL 1.25MG/3ML NEB INH SCH ×2 (01:34→06:56)
[2016-09-14] MEDS: AZITHROMYCIN IV 500 MG in DEXTROSE 5% 250ML 250 ML IV SCH (05:52)
[2016-09-14 06:43] LABS: BASO % 0.5 %; BASO ABS # 0.02 K/uL (0-0.2); COMPLETE YES; EOS % 3.3 %; HEMATOCRIT 34.6 % (37-47); IG% 0.5 %; LYMPH % 21.4 %; LYMPH ABS # 0.85 K/uL (1.2-3.4); MEAN CELL VOLUME 89.6 fL (80-100); MEAN CORPUSCULAR HEMOGLOBIN 30.1 pg (25-34); MEAN CORPUSCULAR HGB CONC 33.5 g/dl (32-36); MEAN PLATELET VOLUME 9.4 fL (7.4-10.4); MONO % 5.8 %; NEUT % 68.5 %; PLATELET COUNT 172 K/uL (130-400); RED BLOOD COUNT 3.86 M/uL (4.2-5.4); WHITE BLOOD COUNT 3.98 K/uL (4.8-10.8)
[2016-09-14 06:56] VITALS: PULSE 72; O2SAT 94
[2016-09-14 07:03] VITALS: BP 129/81; PULSE 69; TEMP 36.7; O2SAT 92
[2016-09-14 07:11] LABS: BUN/CREATININE RATIO 11.5 (10-20); CALCIUM 8.1 mg/dl (8.5-10.1); CREATININE 0.92 mg/dl (0.60-1.20)
[2016-09-14 07:27] LABS: ALB/GLOB RATIO 0.7 (0.9-2); CKMB/CK RATIO 0.2 (0-3.0); PHOSPHORUS 2.6 mg/dl (2.5-4.9)
[2016-09-14] MEDS ORDERED: AMOX500T PO (08:12)
[2016-09-14] MEDS ORDERED: NVLGI7030 SC ×2 (08:12)
--- NOTE | 2016-09-14 08:14 | Discharge Instructions ---
Discharge Instructions Date of Service September 14, 2016. Admission Reason for Admission: Pneumonia, Elev. Trop., Fall Discharge Discharge Diagnosis / Problem: PNEUMONIA.,RHABDOMYOLYSIS, FALL, DIABETES MELLITUS 2 Discharge Goals Goal(s): Decrease discomfort, Improve function, Increase independence, Improve disease control Activity Recommendations Activity Limitations: resume your previous activity . Instructions / Follow-Up Instructions / Follow-Up DR SAINI IN ONE WEEK Current Hospital Diet Patient's current hospital diet: Diabetes Type 2 Diet Discharge Diet Recommended Diet: Diabetes Type 2 Diet Pending Studies Studies pending at discharge: no Laboratory Results Hemoglobin A1c Test 08/31/16 08:30 Range/Units Estimated Average Glucose 120 mg/dl Hemoglobin A1c 5.8 H 4.5-5.6 % Lipid Panel Test 08/31/16 08:30 Range/Units Triglycerides Level 148 0-150 mg/dl Cholesterol Level 121 0-200 mg/dl HDL Cholesterol 32 mg/dl Cholesterol/HDL Ratio 3.8 LDL Cholesterol, Calculated 59 mg/dl Medical Emergencies . Who to Call and When: Medical Emergencies: If at any time you feel your situation is an emergency, please call 911 immediately. . Non-Emergent Contact Non-Emergency issues call your: Primary Care Provider . . "Provider Documentation" section prepared by Jose Miguel Saini. . VTE Core Measure Inpt VTE Proph given/why not?: Treatment not indicated
[2016-09-14] MEDS: HEPARIN SOD 5000 UNIT/0.5 ML CARP SQ SCH (08:21)
[2016-09-14] MEDS: INSULIN ASPART 100 UNITS/ML 3 ML PEN SC SCH (08:21)
[2016-09-14 09:17] VITALS: BP 129/81; PULSE 69; TEMP 36.7; O2SAT 92
--- NOTE | 2016-09-15 01:20 | PROGRESS NOTE ---
DATE: 09/14/2016 SUBJECTIVE: A 66-year-old female admitted with right-sided pneumonia. Her medical problems include type 2 diabetes mellitus, arterial hypertension, history of renal cell carcinoma status post left nephrectomy and sleep apnea. On admission, she also had acute renal failure which was treated with hydration and it resolved. The patient was admitted. Cultures were done. She received one dose of IV Levaquin in the Emergency Room. Subsequently, her antibiotics were changed to Rocephin and Zithromax. Her condition improved. She has severe rhabdomyolysis on admission. She had a fall. She spent at least 3 hours on the floor before she was able to get help. The patient remains afebrile. She denied any headache or dizziness. No chest pain or shortness of breath. She does have a slight cough but has not produced any sputum. No nausea, no vomiting. She is tolerating her diet well. No problem with her bowel movements. No urinary problem. No pain in her back or extremities. PHYSICAL EXAMINATION: GENERAL: Well developed in no distress. VITAL SIGNS: Blood pressure 129/81, pulse 69, respirations 18, temperature 36.7, oxygen saturation 92% on room air. SKIN: Warm and dry. No rash. HEENT: No mucosal abnormalities. NECK: No JVD. No adenopathy. HEART: Regular heart sounds. LUNGS: Minimal right-sided rales. No wheezing, no rhonchi. ABDOMEN: Soft, nontender. BACK: No spinal tenderness. EXTREMITIES: No edema, clubbing, or cyanosis. LABORATORY TESTS: WBC count 3980, hemoglobin 11.6, hematocrit 34.6, platelet count 172,000. Sodium 139, potassium 4.0, chloride 106, CO2 25, BUN 11, creatinine 0.92, glucose 165. Calcium 8.1, phosphorus 2.6, total bilirubin 0.5, AST 142, ALT 91, alkaline phosphatase 85, total CK 2057, MB fraction 3.8. Troponin 0.033. Total protein 6.6, albumin 2.8. ASSESSMENT: 1. Right-sided pneumonia, extensive. 2. Rhabdomyolysis. 3. Type 2 diabetes mellitus. 4. Acute renal failure. 5. History of renal cell carcinoma status post right nephrectomy. 6. Electrolyte abnormalities. PLAN: 1. Her condition has improved. She remains afebrile. 2. She was switched to Augmentin 500 mg 3 times a day. 3. I did cut down on her dose of insulin that she was taking prior to her hospitalization. 4. I also asked her not to take her metformin or Januvia at this time. 5. We will be monitoring her blood sugars and other laboratory tests. I will see her in the office in 1 week. She was discharged home today.
--- NOTE | 2016-09-18 21:38 | DISCHARGE SUMMARY ---
DISCHARGE DIAGNOSES: 1. Extensive right-sided pneumonia. 2. Rhabdomyolysis. 3. Fall. 4. Type 2 diabetes mellitus. 5. Arterial hypertension. 6. History of renal cell carcinoma. 7. Status post left nephrectomy. DISCHARGE MEDICATIONS: Included: 1. Augmentin 500 mg every 8 hours for 7 days. 2. NovoLog mix insulin 70/30, 75 units in the morning and 50 units in the evening. 3. Tylenol 1000 mg every 4 hours as needed. 4. Vitamin D 50,000 units orally every week. 5. Gabapentin 600 mg 3 times a day. 6. Hydrochlorothiazide 50 mg daily. 7. Omeprazole 20 mg daily. 8. Potassium chloride 20 mEq twice a day. 9. Simvastatin 20 mg daily. HISTORY OF PRESENT ILLNESS: A 66-year-old female admitted with fever, chills, and evidence of right-sided pneumonia and rhabdomyolysis. The patient with multiple medical problems including type 2 diabetes mellitus, history of renal cell carcinoma, status post left nephrectomy, chronic kidney disease, arterial hypertension, sleep apnea, and chronic thrombocytopenia. The patient was seen in the office on 09/02/2016 for her yearly examination. At that time, she was doing quite well. Two days prior to her admission, she started feeling ill. She had fever up to 103. She was complaining of chills and sweating. When I saw her in the office on 09/02/2016, she was given Pneumovax 23. She described that she was having inflammation and irritation at the site of her vaccination. Initially I thought it was a reaction to her vaccination, but her condition continued to worsen with persistent fever. Also she was feeling weak at home. She fell down. She stayed on the floor for about 3-1/2 hours before she was able to get some help. She was brought to the Emergency Room by ambulance. She was acutely ill. She was feeling weak and tired. She was having profuse sweating. Her temperature was 39.5. Cultures were done. She was given 1 dose of IV Levaquin 750 mg. Her chest x-ray showed extensive right-sided pneumonia. I saw the patient in the Emergency Room and she was admitted for further treatment. PAST MEDICAL HISTORY, SOCIAL HISTORY AND FAMILY HISTORY: All as noted. ALLERGIES: INTOLERANCE TO OXYCODONE. MEDICATIONS ON ADMISSION: All as noted on her home medication list. PHYSICAL EXAMINATION AND ADMISSION LABORATORY TESTS: All as noted. HOSPITAL COURSE: The patient was admitted to PCU with telemetry. Resuscitation level 1. All her laboratory tests were ordered. Cultures were done. Cardiac isoenzymes and serial electrocardiograms were ordered. An echocardiogram was also ordered. She was given IV antibiotic with Rocephin and Zithromax. Given high-flow treatment with Xopenex. DVT prophylaxis with subcutaneous heparin and ROMÁN stockings. The patient was continued on her medications as noted above. Her condition started to improve. Her temperature came down and she became afebrile. She had evidence of severe rhabdomyolysis. Her CPK was markedly elevated, as high as 13,672, but subsequently it started to come down. Also her troponin I did come down. Elevation of troponin I and CK-MB was thought to all be related to her rhabdomyolysis. Her blood cultures were negative. She did have a urine culture done. Eventually it did grow Tania. The patient was transferred to a medical bed. Her activity was increased. She was tolerating her diet. She was ambulating. She did not have any recurrent fever or any chills. Repeat chest x-ray did continue to show the changes on the right side. The patient was discharged home on oral Augmentin. I did cut down her insulin dose significantly. Her requirement during her hospitalization was very low. I also stopped her metformin and her Januvia. The plan at the time of the discharge was she goes home. No need for any services. Follow up in the office in 1 week. We will repeat her laboratory tests. Also eventually in about 2 weeks we will repeat her chest x-ray.
--- NOTE | 2016-09-21 06:36 | EDITING REQUIRED CODING QUERY ---
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 Please assist us with the question(s) below: In responding to this query, please exercise your independent professional judgement. The fact that a question is asked does not imply that any particular answer is desired or expected. We appreciate your clarification on this issue. Throughout the medical record, you have clearly documented a localized infection and your patient has clinical evidence of a generalized sepsis or severe sepsis. The term urosepsis is a nonspecific entity and is coded as an UTI. If the patient has sepsis, severe sepsis, from an urinary source or some other source, please clarify in your response below. The medical record reflects the following clinical findings: Patient admitted with extensive pneumonia and acute renal failure. H/P & first progress note document Sepsis. Please check below the diagnosis you treated . Thank you! JESS[facility] (x )Bacteremia (Nonspecific laboratory finding of bacteria in the blood) Specify Organism ( ) Present on Admission ( ) Not present on admission (x ) Unable to clinically determine ( ) Septicemia (Systemic disease associated with the presence of pathogenic microorganisms in the blood): Specify Organism ( ) Present on Admission ( ) Not present on admission ( ) Unable to clinically determine ( ) Sepsis Specify Organism Specify Associated Condition/Diagnosis ( ) Present on Admission ( ) Not present on admission ( ) Unable to clinically determine ( ) Severe Sepsis (Sepsis associated with acute organ dysfunction) Specify Organism Specify Associated Condition/Diagnosis ( ) Present on Admission ( ) Not present on admission ( ) Unable to clinically determine ( ) Septic Shock (Severe sepsis with acute circulatory failure, unexplained by other causes) ( ) Present on Admission () Not present on admission () Unable to clinically determine ( ) Other, patient has:
== END 2016-09-14 09:50 | disposition home or self-care (01) | DRG 194 ==
LOC: ENRESERVDT → ENRESERVTM → EDBD 18:39 → C.EDB 18:40 → C.2T 21:28 → C.MS2W 09-12 12:22
PROVIDERS: ADMIT Internal Medicine; ATTEND Internal Medicine
DX: J18.9 Pneumonia, unspecified organism (principal); N17.9 Acute kidney failure, unspecified; M62.82 Rhabdomyolysis; R78.81 Bacteremia; I12.9 Hypertensive chronic kidney disease with stage 1 through stage 4 chronic kidney disease, or unspecified chronic kidney disease; E11.40 Type 2 diabetes mellitus with diabetic neuropathy, unspecified; E11.319 Type 2 diabetes mellitus with unspecified diabetic retinopathy without macular edema; G47.30 Sleep apnea, unspecified; Z96.651 Presence of right artificial knee joint; Z85.528 Personal history of other malignant neoplasm of kidney; E83.39 Other disorders of phosphorus metabolism; Z90.5 Acquired absence of kidney; Z80.51 Family history of malignant neoplasm of kidney; E11.21 Type 2 diabetes mellitus with diabetic nephropathy

== ENCOUNTER → 2016-09-22 | Outpatient (CLI) | payer BC ==
[~2016-09-22] MED LIST changes: -ACET-1138 PO; +ACET-1256 PO; +AMOX500T PO; -ASPEC325 PO; +ERGO500037 PO; -FRRG PO; -HYD50 PO; +HYDR50TA3 PO; -METF-384 PO; -NCYSR50 PO; -RXC5 PO; -SITA100T3 PO; -VTMD PO
[2016-09-22 15:11] LABS: BASO % 0.5 %; BASO ABS # 0.03 K/uL (0-0.2); COMPLETE YES; EOS % 2.1 %; HEMATOCRIT 40.2 % (37-47); IG% 0.2 %; LYMPH % 30.6 %; LYMPH ABS # 1.87 K/uL (1.2-3.4); MEAN CELL VOLUME 92.4 fL (80-100); MEAN CORPUSCULAR HEMOGLOBIN 29.9 pg (25-34); MEAN CORPUSCULAR HGB CONC 32.3 g/dl (32-36); MEAN PLATELET VOLUME 10.6 fL (7.4-10.4); MONO % 5.1 %; NEUT % 61.5 %; PLATELET COUNT 190 K/uL (130-400); RED BLOOD COUNT 4.35 M/uL (4.2-5.4); WHITE BLOOD COUNT 6.11 K/uL (4.8-10.8)
[2016-09-22 15:19] LABS: ALT/SGPT 42 U/L (12-78); AST/SGOT 34 U/L (15-37); BLOOD UREA NITROGEN 13 mg/dl (7-18); BUN/CREATININE RATIO 10.7 (10-20); CARBON DIOXIDE 31 mmol/L (21-32); CHLORIDE 101 mmol/L (98-107); GLUCOSE 147 mg/dl (70-99); POTASSIUM 4.2 mmol/L (3.5-5.1); SODIUM 140 mmol/L (136-145)
[2016-09-22 15:21] LABS: ALB/GLOB RATIO 0.9 (0.9-2); ALKALINE PHOSPHATASE 95 U/L (45-117)
== END | disposition home or self-care (01) ==
LOC: C.LABSPEC 14:51
PROVIDERS: ATTEND Internal Medicine
DX: J18.9 Pneumonia, unspecified organism (principal); M62.82 Rhabdomyolysis

== ENCOUNTER → 2016-10-03 | Outpatient (CLI) | payer BC ==
[~2016-10-03] MED LIST changes: -AMOX500T PO
--- NOTE | 2016-10-03 10:30 | DIAGNOSTIC IMAGING REPORT ---
CHEST 2 VIEWS ROUTINE CLINICAL HISTORY: PNEUMONIA COMPARISON STUDY: 09/12/2016 FINDINGS: Lungs are now considered clear. There is a described infiltrative changes have resolved. Mild stable cardia megaly. Diaphragms smooth. There is suggestion of a potential nodular density peripheral aspect right midlung. CT stated chest is suggested. IMPRESSION: 1. Improved infiltrative change. The lungs are now essentially clear 2. Residual nodular density peripheral aspect right lung with CT chest recommended as follow-up. Electronically signed by: Cabrera Mariano M.D. 10/03/2016 10:29 AM Dictated Date/Time: 10/03/2016 10:26 AM
== END | disposition home or self-care (01) ==
LOC: C.RAD 09:53
PROVIDERS: ATTEND Internal Medicine
DX: J18.9 Pneumonia, unspecified organism (principal); J98.4 Other disorders of lung

== ENCOUNTER → 2016-10-24 | Outpatient (CLI) | payer BC ==
--- NOTE | 2016-10-24 09:44 | DIAGNOSTIC IMAGING REPORT ---
CHEST 2 VIEWS ROUTINE HISTORY:66 yearsFemaleacute cough. Concern for underlying pneumonia. COMPARISON: 10/03/2016. TECHNIQUE: Frontal and lateral views of the chest. FINDINGS: Cardiac silhouette is again mildly enlarged. There is no pneumothorax, pleural effusion, focal airspace consolidation or overt pulmonary edema. Subtle nodular opacity in the lateral right midlung is again seen. There is sigmoidal scoliosis of the thoracic spine. IMPRESSION: 1. No acute cardiopulmonary process. 2. Subtle nodular opacity of the lateral right midlung again seen which may reflect underlying pulmonary nodule or superimposed interstitial markings. The above report was generated using voice recognition software. It may contain grammatical, syntax or spelling errors. Electronically signed by: Gregory Reese 10/24/2016 9:43 AM Dictated Date/Time: 10/24/2016 9:41 AM
== END | disposition home or self-care (01) ==
LOC: C.RAD 09:24
PROVIDERS: ATTEND Internal Medicine
DX: J18.9 Pneumonia, unspecified organism (principal)

== ENCOUNTER → 2016-11-14 | Outpatient (CLI) | payer BC ==
--- NOTE | 2016-11-14 10:53 | DIAGNOSTIC IMAGING REPORT ---
CHEST 2 VIEWS ROUTINE CLINICAL HISTORY: 66 years-old Female presenting with NODULAR OPACITY. TECHNIQUE: PA and lateral views of the chest were obtained. COMPARISON: 10/24/2016. FINDINGS: Mild prominence of the cardiac silhouette. Tortuosity of the descending thoracic aorta due to dextrocurvature of the thoracic spine. Previously noted nodule in the right midlung is minimally apparent. Lungs and pleural spaces otherwise clear. Osseous structures and upper abdomen normal. IMPRESSION: 1. No acute cardiopulmonary disease. 2. Apparent right midlung nodule. Further evaluation with CT recommended. Electronically signed by: Jensen Singh M.D. 11/14/2016 10:52 AM Dictated Date/Time: 11/14/2016 10:50 AM
== END | disposition home or self-care (01) ==
LOC: C.RAD 09:46
PROVIDERS: ATTEND Internal Medicine
DX: R91.1 Solitary pulmonary nodule (principal)

== ENCOUNTER → 2016-11-18 | Outpatient (CLI) | payer BC ==
[2016-11-18 15:29] LABS: BLOOD UREA NITROGEN 16 mg/dl (7-18); BUN/CREATININE RATIO 13.6 (10-20); CALCIUM 8.8 mg/dl (8.5-10.1); CARBON DIOXIDE 31 mmol/L (21-32); CHLORIDE 104 mmol/L (98-107); GLUCOSE 233 mg/dl (70-99); POTASSIUM 4.3 mmol/L (3.5-5.1); SODIUM 138 mmol/L (136-145)
== END | disposition home or self-care (01) ==
LOC: C.LABSPEC 13:40
PROVIDERS: ATTEND Internal Medicine
DX: N18.9 Chronic kidney disease, unspecified (principal)

== ENCOUNTER → 2016-12-20 | Outpatient (CLI) | payer BC ==
[~2016-12-20] MED LIST changes: -NVLGI7030 SC
[2016-12-20 13:30] LABS: HEMATOCRIT 39.2 % (37-47); MEAN CELL VOLUME 93.3 fL (80-100); MEAN CORPUSCULAR HGB CONC 33.2 g/dl (32-36); WHITE BLOOD COUNT 4.26 K/uL (4.8-10.8)
[2016-12-20 13:44] LABS: BLOOD UREA NITROGEN 17 mg/dl (7-18); BUN/CREATININE RATIO 14.1 (10-20); CALCIUM 9.1 mg/dl (8.5-10.1); CARBON DIOXIDE 30 mmol/L (21-32); CHLORIDE 103 mmol/L (98-107); GLUCOSE 176 mg/dl (70-99); SODIUM 138 mmol/L (136-145)
[2016-12-20 13:50] LABS: CHOLESTEROL 134 mg/dl (0-200); CHOLESTEROL/HDL RATIO 4.6; HDL CHOLESTEROL 29 mg/dl; TRIGLYCERIDES 165 mg/dl (0-150); VERY LOW DENSITY LIPOPROT CALC 33 mg/dl
[2016-12-20 13:55] LABS: BLOOD UREA NITROGEN 16 mg/dl (7-18); BUN/CREATININE RATIO 13.3 (10-20); CALCIUM 9.5 mg/dl (8.5-10.1); CARBON DIOXIDE 28 mmol/L (21-32); CHLORIDE 101 mmol/L (98-107); GLUCOSE 178 mg/dl (70-99); SODIUM 137 mmol/L (136-145)
[2016-12-20 13:56] LABS: PHOSPHORUS 3.1 mg/dl (2.5-4.9)
[2016-12-20 13:57] LABS: MEAN PLATELET VOLUME 10.7 fL (7.4-10.4); PLATELET COUNT 97 K/uL (130-400)
[2016-12-20 14:17] LABS: ESTIMATED AVERAGE GLUCOSE 169 mg/dl; HA1C FLAG Normal (Normal)
== END | disposition home or self-care (01) ==
LOC: C.LABSPEC 12:48
PROVIDERS: ATTEND Internal Medicine Nephrology
DX: I12.9 Hypertensive chronic kidney disease with stage 1 through stage 4 chronic kidney disease, or unspecified chronic kidney disease (principal); N18.3 Chronic kidney disease, stage 3 (moderate); C64.9 Malignant neoplasm of unspecified kidney, except renal pelvis; R80.9 Proteinuria, unspecified; Z90.5 Acquired absence of kidney; E55.9 Vitamin D deficiency, unspecified; E78.5 Hyperlipidemia, unspecified; E11.65 Type 2 diabetes mellitus with hyperglycemia; E11.22 Type 2 diabetes mellitus with diabetic chronic kidney disease

== ENCOUNTER → 2016-12-23 | Outpatient (CLI) | payer BC ==
[2016-12-23 15:44] LABS: URINE APPEARANCE CLEAR (CLEAR); URINE BILIRUBIN NEG (NEG); URINE COLOR YELLOW; URINE NITRITE NEG (NEG); URINE PH 6.5 (4.5-7.5); URINE SPECIFIC GRAVITY 1.021 (1.000-1.030); UROBILINOGEN NEG (NEG)
[2016-12-23 15:45] LABS: MANUAL MICROSCOPIC REQUIRED? NO; REVIEW REQ? NO
[2016-12-23 16:36] LABS: URINE PROTIEN/CREAT RATIO 0.3 (0-0.2); URINE TOTAL PROTEIN 13.5 mg/dl (0-11.9)
== END | disposition home or self-care (01) ==
LOC: C.LABSPEC 14:37
PROVIDERS: ATTEND Internal Medicine
DX: N18.3 Chronic kidney disease, stage 3 (moderate) (principal); R80.9 Proteinuria, unspecified; C64.9 Malignant neoplasm of unspecified kidney, except renal pelvis

== ENCOUNTER → 2016-12-27 | Outpatient (CLI) | payer BC ==
[~2016-12-27] MED LIST changes: +OPTIRAY 320 IV PRN
--- NOTE | 2016-12-27 14:06 | DIAGNOSTIC IMAGING REPORT ---
(CHEST) THORAX WITH CLINICAL HISTORY: 66 years-old Female presenting with LUNG NODULES. TECHNIQUE: Multidetector CT imaging of the chest was performed after the administration of intravenous contrast. IV contrast: 70 mL of Optiray 320. A dose lowering technique was used consistent with the principles of ALARA (as low as reasonably achievable). COMPARISON: 2007. CT DOSE (mGy.cm): The estimated cumulative dose is 673.35 mGycm. 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 On soft tissue windows, multiple thyroid nodules noted, the largest in the right lobe measuring 7 mm, which have grown since the prior exam in 2007. Calcified lymph node noted in the right axilla lateral to the pectoralis minor. Numerous enlarged mediastinal lymph nodes, the largest in the precarinal and subcarinal region measuring up to 12 mm in short axis. This is similar to prior exam. Atherosclerosis of the descending thoracic aorta. Mild ectasia of the aortic root, although evaluation is limited by nongated technique. Normal heart size. Coronary artery calcification. No pericardial or pleural effusion. Although incompletely imaged, suggestion of splenomegaly, with the spleen measuring 14 cm in maximal axial dimension. On lung windows, multiple solid pulmonary nodules bilaterally. Subtle tree-in-bud opacities noted in the lingula. Few nodules are new from prior and several are stable to minimally increased in size since 2007. One new solid pulmonary nodule is noted in the right upper lobe, which measures 3 mm (series 4 image 129) series. Nodularity is also noted along the right major fissure. Airways patent. On bone windows, degenerative changes of the thoracic spine. IMPRESSION: 1. Mediastinal lymphadenopathy, calcified right axillary lymphadenopathy, scattered bilateral pulmonary nodules and nodularity along the fissures. These findings are most compatible with sarcoidosis. Follow-up could be obtained as clinically warranted. 2. Suggestion of splenomegaly, which would also be compatible with the diagnosis of sarcoidosis. Electronically signed by: Jensen Singh M.D. 12/27/2016 2:05 PM Dictated Date/Time: 12/27/2016 1:53 PM
== END | disposition home or self-care (01) ==
LOC: C.CTS 12:48
PROVIDERS: ATTEND Internal Medicine
DX: R91.8 Other nonspecific abnormal finding of lung field (principal); R59.0 Localized enlarged lymph nodes

== ENCOUNTER → 2017-03-23 | Outpatient (CLI) | payer BC ==
[~2017-03-23] MED LIST changes: -OPTIRAY 320 IV PRN
--- NOTE | 2017-03-23 14:34 | MAMMOGRAPHY REPORT ---
BILATERAL DIGITAL SCREENING MAMMOGRAM TOMOSYNTHESIS WITH CAD: 03/23/2017 CLINICAL HISTORY: Routine screening. Patient has no complaints. TECHNIQUE: Breast tomosynthesis in addition to standard 2D mammography was performed. Current study was also evaluated with a Computer Aided Detection (CAD) system. COMPARISON: Comparison is made to exams dated: 03/21/2016 mammogram, 03/18/2015 mammogram, 03/17/2014 m ammogram, 03/15/2013 mammogram, 03/13/2012 mammogram, and 03/09/2011 mammogram - [facility]. BREAST COMPOSITION: There are scattered areas of fibroglandular density in both breasts. FINDINGS: No suspicious masses, calcifications, or areas of architectural distortion are noted in ei ther breast. There has been no significant interval change compared to prior exams. IMPRESSION: ACR BI-RADS CATEGORY 1: NEGATIVE There is no mammographic evidence of malignancy. A 1 year screening mammogram is recommended. The pa tient will receive written notification of the results. Approximately 10% of breast cancers are not detected with mammography. A negative mammographic report should not delay biopsy if a clinically suggestive mass is present. Anat Coughlin M.D. ah/:03/23/2017 11:18:38 [employer] Supervisor: Ale FELICIANO(Agus)(M), [facility] letter sent: Normal 1/2 BI-RADS Code: ACR BI-RADS Category 1: Negative
== END | disposition home or self-care (01) ==
LOC: C.MAMM 10:50
PROVIDERS: ATTEND Internal Medicine
DX: Z12.31 Encounter for screening mammogram for malignant neoplasm of breast (principal)

== ENCOUNTER → 2017-04-24 | Outpatient (CLI) | payer BC | END | disposition home or self-care (01) | LOC: C.LABSPEC 12:27 | PROVIDERS: ATTEND Internal Medicine Nephrology | DX: I12.9 Hypertensive chronic kidney disease with stage 1 through stage 4 chronic kidney disease, or unspecified chronic kidney disease (principal); N18.3 Chronic kidney disease, stage 3 (moderate); R80.9 Proteinuria, unspecified; E55.9 Vitamin D deficiency, unspecified ==

== ENCOUNTER → 2017-04-25 | Outpatient (CLI) | payer BC ==
[2017-04-25 13:43] LABS: ALBUMIN 3.6 gm/dl (3.4-5.0); BLOOD UREA NITROGEN 16 mg/dl (7-18); CALCIUM 8.9 mg/dl (8.5-10.1); CARBON DIOXIDE 29 mmol/L (21-32); CREATININE 1.23 mg/dl (0.60-1.20); GLUCOSE 210 mg/dl (70-99); PHOSPHORUS 2.8 mg/dl (2.5-4.9); POTASSIUM 3.7 mmol/L (3.5-5.1); SODIUM 136 mmol/L (136-145)
[2017-04-25 13:46] LABS: HEMATOCRIT 40.4 % (37-47); HEMOGLOBIN 13.6 g/dL (12.0-16.0); MEAN CELL VOLUME 91.6 fL (80-100); MEAN CORPUSCULAR HEMOGLOBIN 30.8 pg (25-34); MEAN CORPUSCULAR HGB CONC 33.7 g/dl (32-36); MEAN PLATELET VOLUME 10.7 fL (7.4-10.4); PLATELET COUNT 96 K/uL (130-400); RED CELL DISTRIBUTION WIDTH CV 14.4 % (11.5-14.5); RED CELL DISTRIBUTION WIDTH SD 48.1 fL (36.4-46.3); WHITE BLOOD COUNT 4.57 K/uL (4.8-10.8)
[2017-04-25 13:58] LABS: CHOLESTEROL 119 mg/dl (0-200); LDL CHOLESTEROL (DIRECT) 79 mg/dl
== END | disposition home or self-care (01) ==
LOC: C.LABSPEC 12:27
PROVIDERS: ATTEND Internal Medicine Nephrology
DX: I12.9 Hypertensive chronic kidney disease with stage 1 through stage 4 chronic kidney disease, or unspecified chronic kidney disease (principal); N18.3 Chronic kidney disease, stage 3 (moderate); R80.9 Proteinuria, unspecified; E55.9 Vitamin D deficiency, unspecified; E78.5 Hyperlipidemia, unspecified; E11.65 Type 2 diabetes mellitus with hyperglycemia; E11.22 Type 2 diabetes mellitus with diabetic chronic kidney disease; Z90.5 Acquired absence of kidney; C64.9 Malignant neoplasm of unspecified kidney, except renal pelvis

== ENCOUNTER → 2017-08-21 | Outpatient (CLI) | payer BC ==
[2017-08-21 14:09] LABS: HEMOGLOBIN A1C 9.3 % (4.5-5.6)
[2017-08-21 14:18] LABS: BLOOD UREA NITROGEN 13 mg/dl (7-18); CALCIUM 8.7 mg/dl (8.5-10.1); CARBON DIOXIDE 30 mmol/L (21-32); CREATININE 1.11 mg/dl (0.60-1.20); GLUCOSE 219 mg/dl (70-99); POTASSIUM 3.8 mmol/L (3.5-5.1); SODIUM 138 mmol/L (136-145)
[2017-08-21 14:21] LABS: CHOLESTEROL 116 mg/dl (0-200); LDL CHOLESTEROL (DIRECT) 79 mg/dl
== END | disposition home or self-care (01) ==
LOC: C.LABSPEC 12:16
PROVIDERS: ATTEND Internal Medicine
DX: Z00.00 Encounter for general adult medical examination without abnormal findings (principal); I10 Essential (primary) hypertension; E11.9 Type 2 diabetes mellitus without complications

== ENCOUNTER → 2017-11-20 | Outpatient (CLI) | payer BC ==
[2017-11-20 15:23] LABS: BLOOD UREA NITROGEN 13 mg/dl (7-18); CALCIUM 8.6 mg/dl (8.5-10.1); CARBON DIOXIDE 26 mmol/L (21-32); CHOLESTEROL 106 mg/dl (0-200); CREATININE 1.27 mg/dl (0.60-1.20); GLUCOSE 186 mg/dl (70-99); LDL CHOLESTEROL (DIRECT) 72 mg/dl; POTASSIUM 4.1 mmol/L (3.5-5.1); SODIUM 136 mmol/L (136-145)
[2017-11-20 15:36] LABS: HEMATOCRIT 39.3 % (37-47); HEMOGLOBIN 12.8 g/dL (12.0-16.0); MEAN CELL VOLUME 93.1 fL (80-100); MEAN CORPUSCULAR HEMOGLOBIN 30.3 pg (25-34); MEAN CORPUSCULAR HGB CONC 32.6 g/dl (32-36); MEAN PLATELET VOLUME 10.7 fL (7.4-10.4); PLATELET COUNT 86 K/uL (130-400); RED CELL DISTRIBUTION WIDTH CV 14.7 % (11.5-14.5); RED CELL DISTRIBUTION WIDTH SD 49.4 fL (36.4-46.3)
[2017-11-21 06:31] LABS: HEMOGLOBIN A1C 8.5 % (4.5-5.6)
== END | disposition home or self-care (01) ==
LOC: C.LABSPEC 13:45
PROVIDERS: ATTEND Internal Medicine Nephrology
DX: Z00.00 Encounter for general adult medical examination without abnormal findings (principal); Z90.5 Acquired absence of kidney; N18.3 Chronic kidney disease, stage 3 (moderate); I12.9 Hypertensive chronic kidney disease with stage 1 through stage 4 chronic kidney disease, or unspecified chronic kidney disease; R80.9 Proteinuria, unspecified; C64.9 Malignant neoplasm of unspecified kidney, except renal pelvis; E55.9 Vitamin D deficiency, unspecified; E11.22 Type 2 diabetes mellitus with diabetic chronic kidney disease; E78.5 Hyperlipidemia, unspecified

== ENCOUNTER 2023-11-01 15:48 | Inpatient (IN) ==
[2023-11-01 16:26] LABS: iSTAT Creatinine 1.3 mg/dl (0.6-1.3); iSTAT Hemoglobin 11.2 g/dl (12.0-16.0); iSTAT Ionized Calcium 1.13 mmol/l (1.12-1.32); iSTAT Potassium 4.9 mmol/L (3.3-5.0)
[2023-11-01 16:31] LABS: Basophils # (auto) 0.02 K/uL (0.00-0.20); Basophils % (auto) 0.2 %; Hemoglobin 11.5 g/dl (12.0-16.0); Immature Granulocytes # (auto) 0.04 K/uL (0.01-0.20); Immature Granulocytes % (auto) 0.4 %; Lymphocytes # (auto) 0.53 K/uL (1.20-3.40); Lymphocytes % (auto) 5.5 %; Mean Corpuscular Hemoglobin 32.5 pg (25.0-34.0); Mean Corpuscular Hgb Conc 33.8 g/dL (32.0-36.0); Monocytes # (auto) 0.85 K/uL (0.11-0.59); Monocytes % (auto) 8.9 %; Neutrophils # (auto) 8.14 K/uL (1.40-6.50); Platelet Count 86 K/uL (130-400); RDW Coefficient of Variation 16.5 % (11.5-14.5); RDW Standard Deviation 57.7 fL (36.4-46.3); Red Blood Count 3.54 M/uL (4.20-5.40); White Blood Count 9.58 K/ul (4.8-10.8)
--- NOTE | 2023-11-01 16:34 | XRay Report ---
XR chest 1V portable CLINICAL HISTORY: weakness TECHNIQUE: Single frontal radiograph of the chest was obtained. Comparison: None available at the time of this dictation. FINDINGS: Exam is limited by underpenetration. Cardiomegaly is noted. The lungs are clear. No evidence of pleur al effusion or pneumothorax. IMPRESSION: No acute chest disease. ACT 112: Negative or not required by law. Electronically signed by: Deandre Darden M.D. 11/01/2023 4:33 PM
[2023-11-01 16:46] LABS: Albumin Level 3.3 gm/dl (3.4-5.0); BUN Creatinine Ratio 14.7 (10-20); Bilirubin,Total 4.2 mg/dl (0.2-1.0); Calcium 9.3 mg/dl (8.6-10.3); Creatinine Clr Calc Pharmacy 53.5 ml/min; Est GFR (African American) 47.9 ml/min; Est GFR (Non-African American) 41.3 ml/min; Globulin 3.3 gm/dl (2.5-4.0); Potassium 5.1 mmol/L (3.5-5.1); Total Protein 6.6 gm/dl (6.0-8.3)
[2023-11-01 16:51] LABS: Troponin I High Sensitivity 29.2 pg/ml (0-14)
[2023-11-01 17:00] LABS: Thyroid Stimulating Hormone 1.182 uIu/ml (0.300-4.500)
--- NOTE | 2023-11-01 17:00 | XRay Report ---
XR shoulder RT min 2V routine CLINICAL HISTORY: fall, shoulder COMPARISON: None FINDINGS: No acute fracture within the right shoulder is noted. There is no evidence for dislocation . There is moderate AC joint joint space narrowing with osteophytosis. There is apparent elevation of the humeral head with narrowing of the subacromial space. IMPRESSION: 1. No fracture or dislocation within the right shoulder. 2. Moderate degenerative changes within the right shoulder. ACT 112: Negative or not required by law. Electronically signed by: Gregor Berkowitz M.D. 11/01/2023 4:58 PM
[2023-11-01 19:21] LABS: Troponin I High Sensitivity 41.1 pg/ml (0-14)
--- NOTE | 2023-11-01 19:28 | Emergency Department Note ---
ED Provider Note NAME: LIZABETH ALMENDRAEZ AGE: 73 SEX: F : 1950 ARRIVES VIA: Ambulance INFORMANT: [Patient][, ] ED PROVIDER(S): [Denice Yuan MD] CHIEF COMPLAINT: Fall HPI: This is a 73-year-old female presenting after a fall. Patient states that she woke up and he felt somewhat lightheaded. She thought her blood sugar was low. She notes that she was time to go the bathroom but then fell to the ground. She struck her right shoulder against the ground. She did not hit her head. She states on the ground since 2:30 in the morning last night. She did not trip. She has no syncopal episode that she can remember. She just feels very weak over the past few days. She is increasing short of breath. She states this is her baseline however. She does appear that she had pleural effusions/ascites requiring drainage. ROS: See above HPI for pertinent positives & negatives. A total of [10] systems reviewed and were otherwise negative. PHYSICAL EXAMINATION: General: resting comfortably in no acute distress Head: Normocephalic and atraumatic Eyes: Normal inspection, extraocular muscles intact Ear, nose, throat: Normal external exam Neck: Normal range of motion Respiratory: lungs clear to auscultation bilaterally Cardiovascular: Regular rate/rhythm, no murmur GI: soft, nontender, no guarding or rebound Extremities: nontender, moves all extremities Neuro: The patient awake and alert, appropriately conversive, no focal deficits, symmetric faces Skin: Warm, dry, and intact MEDICAL DECISION MAKING: This is a 73-year-old female presenting after a fall. Considered electrolyte disturbance, anemia, hypoglycemia etc. etiology. -Patient's blood work does reveal signs of slight hypoglycemia, 69. Patient able to eat, currently at a meal with improvement in symptoms. Otherwise she has no leukocytosis, slight anemia is noted. -Patient had troponin that is elevated at 29.9 initially. Creatinine is elevated at 449. -Chest Xray independently interpreted by me showing no pneumothorax, focal opacity, or pleural effusions. -X-ray of the right shoulder as independently interpreted by me reveals no osseous fracture or dislocation - Troponin is currently rising at 41.1. Patient will require admission at this time for weakness, fall, hypoglycemia, elevated troponin. - Discussed findings with patient, family who are comfortable with admission at this time. - Differential diagnosis: [] ER treatment provided: See below Diagnostics interpreted by me: ECG: [none] Cardiac Monitoring: An order was placed for continuous cardiac monitoring. The monitor shows a rate of [] with [] rhythm. Laboratory studies: [As stated above and show below.] Imaging studies: [See below.] Past Med/Surg History Problem List (Updated 11/01/23 @ 22:17 by Dean Bertrand DO) Hepatocellular carcinoma Elevated troponin Fall at home Hypoglycemia associated with type 2 diabetes mellitus Leg cramps Iron deficiency anemia Type 2 diabetes mellitus with obesity Vitamin D deficiency (Chronic) Proteinuria (Chronic) Former smoker (Chronic) Anemia Thrombocytopenia Leukopenia Steatosis of liver Hypercholesterolemia History of renal cell carcinoma (~2007) Left Kidney 2007 Type 2 diabetes mellitus with retinopathy of both eyes, with long-term current use of insulin Hypertension (Chronic) Absent kidney, acquired (Chronic) [place] (nonalcoholic steatohepatitis) Cirrhosis of liver 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) Vitamin D deficiency (Chronic) Chronic kidney disease, stage 3 (Chronic) monitoring Medical History History of kidney stones Breast cancer, left breast Thrombocytopenia Hyperlipidemia Sleep apnea Surgical History Status post left breast lumpectomy History of esophagogastroduodenoscopy (EGD) Status post right knee replacement History of cataract surgery Status post cystoscopy with ureteral stent placement History of anesthesia reaction History of lithotripsy History of colonoscopy History of nephrectomy, unilateral History of tooth extraction History of surgical procedure on eye proper using laser Family History Father Myocardial infarction Stroke Diabetes Mother History of kidney cancer Diabetes Sister Aspiration into airway Other No family history of adverse response to anesthesia Denies family history of Prostate cancer Breast cancer Colorectal cancer Social History Smoking Status: Former smoker Tobacco Type: Cigarettes Second Hand Exposure: No; Do You Dip or Chew Tobacco: No; Hx Alcohol Use: No Hx Substance Use: No Preferred Language: Slovenian Communication Ability: Effective Visual Impairment: No Limitations Hearing Ability: Normal Childbirth Educator Required: No Beliefs That Will Affect Care: None marital status: Single Current Living Situation: Alone current occupational status: retired 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 [employer] How many Children do You have: 0 Feels Safe at Home: Yes Childhood Exposure to Second-Hand Smoke: No Diet: regular caffeine: No during the past year weight has: remained stable Dental Care, Regularly: No Physical Activity Frequency: Does not Exercise Seatbelt Use: always Sunscreen Use: No Assistive Devices: Cane and CPAP Allergies Allergies Allergy/AdvReac Type Severity Reaction Status Date / Time oxycodone AdvReac Mild NAUSEA Verified 10/10/23 10:10 WITH EMESIS Home Meds Home Medications Medication Instructions Recorded Confirmed acetaminophen 500 mg tablet 1,000 mg PO BID PRN Pain 02/03/22 11/01/23 mecobalamin (vitamin B12) 1,000 1,000 mcg PO DAILY 02/03/22 11/01/23 mcg chewable tablet anastrozole 1 mg tablet 1 mg PO QAM 10/05/22 11/01/23 furosemide 20 mg tablet (Lasix) 20 mg PO DAILY 08/29/23 11/01/23 spironolactone 50 mg tablet 50 mg PO DAILY 08/29/23 11/01/23 Previous Rx's Medication Instructions Recorded omeprazole 20 mg tablet,delayed 20 mg PO DAILY #90 tabs 12/30/22 release simvastatin 20 mg tablet 20 mg PO HS #90 tabs 12/30/22 ferrous sulfate 324 mg (65 mg 324 mg PO BID #180 tabs 01/16/23 iron) tablet,delayed release propranolol 20 mg tablet 20 mg PO QAM #30 tabs 04/12/23 ergocalciferol (vitamin D2) 1,250 50,000 unit PO MONTHLY #12 caps 04/18/23 mcg (50,000 unit) capsule blood sugar diagnostic #200 ea 07/04/23 metformin 500 mg tablet 500 mg PO BID #180 tabs 07/04/23 sitagliptin phosphate 100 mg 100 mg PO QAM #90 tabs 07/04/23 tablet (Januvia) potassium chloride 10 mEq 10 meq PO BID #180 caps 10/10/23 capsule,extended release diclofenac sodium 1 % topical gel 2 g topical QID #100 grams 11/02/23 (Voltaren Arthritis Pain) Results & Data (ED) Vital Signs Vital Signs - 24 hr 11/01/23 19:14 Pulse Rate 97 H Laboratory Data 11/02/23 06:22 11/02/23 06:22 Lab Results 11/01/23 11/01/23 11/01/23 Range/Units 16:08 16:13 18:04 WBC 9.58 (4.8-10.8) K/ul RBC 3.54 L (4.20-5.40) M/uL Hgb 11.5 L (12.0-16.0) g/dl POC Hgb 11.2 L (12.0-16.0) g/dl Hct 34.0 L (37.0-47.0) % POC Hct 33 L (37-47) % MCV 96.0 (80.0-100.0) fL MCH 32.5 (25.0-34.0) pg MCHC 33.8 (32.0-36.0) g/dL RDW Std Deviation 57.7 H (36.4-46.3) fL RDW Coeff of Stiven 16.5 H (11.5-14.5) % Plt Count 86 L (130-400) K/uL MPV 10.0 (9.4-12.4) fL Immature Gran % (Auto) 0.4 % Neut % (Auto) 85.0 % Lymph % (Auto) 5.5 % [place] % (Auto) 8.9 % Eos % (Auto) 0.0 % Baso % (Auto) 0.2 % Neut # (Auto) 8.14 H (1.40-6.50) K/uL Lymph # (Auto) 0.53 L (1.20-3.40) K/uL [place] # (Auto) 0.85 H (0.11-0.59) K/uL Eos # (Auto) 0.00 (0.00-0.50) K/uL Baso # (Auto) 0.02 (0.00-0.20) K/uL Immature Gran # (Auto) 0.04 (0.01-0.20) K/uL POC Sodium 138 (135-144) mmol/L Sodium 138 (136-145) mmol/L POC Potassium 4.9 (3.3-5.0) mmol/L Potassium 5.1 (3.5-5.1) mmol/L POC Chloride 103 (101-112) mmol/L Chloride 104 (98-107) mmol/L Carbon Dioxide 23 (21-32) mmol/L POC Total CO2 22 L (24-31) mmol/L Anion Gap 11 (3-11) POC Anion Gap 20.0 (16-25) mmol/L POC BUN 16 (7-18) mg/dl BUN 19 (6-23) mg/dl Creatinine 1.29 H (0.6-1.2) mg/dl POC Creatinine 1.3 (0.6-1.3) mg/dl Est Cr Clr Drug Dosing 53.5 ml/min Est GFR ( Amer) 47.9 ml/min Est GFR (Non-Af Amer) 41.3 ml/min BUN/Creatinine Ratio 14.7 (10-20) Glucose 69 L (70-99(Fasting)) mg/dl POC Glucose 78 (70-99) mg/dl POC Glucose (other) 69 L* (70-99) mg/dl Lactate (0.4-2.0) mmol/L Calcium 9.3 (8.6-10.3) mg/dl POC Ioniz Calcium Nick 1.13 (1.12-1.32) mmol/l Magnesium (1.7-2.4) mg/dl Total Bilirubin 4.2 H (0.2-1.0) mg/dl AST 37 (13-39) U/L ALT 19 (7-52) U/L Alkaline Phosphatase 109 H (34-104) U/L Total Creatine Kinase 449 H (26-192) U/L Troponin I High Sens 29.2 H (0-14) pg/ml B-Natriuretic Peptide (0-100) pg/ml Total Protein 6.6 (6.0-8.3) gm/dl Albumin 3.3 L (3.4-5.0) gm/dl Globulin 3.3 (2.5-4.0) gm/dl Albumin/Globulin Ratio 1.0 (0.9-2) TSH 1.182 (0.300-4.500) uIu/ml Adenovirus (PCR) (NotDetected) B. pertussis DNA (PCR) (NotDetected) B.parapertussis DNA PCR (NotDetected) C. pneumoniae DNA (PCR) (NotDetected) Coronavirus OC43 (PCR) (NotDetected) Coronavirus HKU1 (PCR) (NotDetected) Coronavirus 229E (PCR) (NotDetected) SARS-CoV-2 (PCR) (NotDetected) Coronavirus NL63 (PCR) (NotDetected) Human Metapneumovir PCR (NotDetected) Influenza Type A (PCR) (NotDetected) Influenza Type B (PCR) (NotDetected) M. pneumoniae (PCR) (NotDetected) Parainfluenza 1 (PCR) (NotDetected) Parainfluenza 2 (PCR) (NotDetected) Parainfluenza 3 (PCR) (NotDetected) Parainfluenza 4 (PCR) (NotDetected) RSV (PCR) (NotDetected) Entero/Rhino (PCR) (NotDetected) 11/01/23 11/01/23 11/01/23 Range/Units 18:36 19:11 19:21 WBC (4.8-10.8) K/ul RBC (4.20-5.40) M/uL Hgb (12.0-16.0) g/dl POC Hgb (12.0-16.0) g/dl Hct (37.0-47.0) % POC Hct (37-47) % MCV (80.0-100.0) fL MCH (25.0-34.0) pg MCHC (32.0-36.0) g/dL RDW Std Deviation (36.4-46.3) fL RDW Coeff of Stiven (11.5-14.5) % Plt Count (130-400) K/uL MPV (9.4-12.4) fL Immature Gran % (Auto) % Neut % (Auto) % Lymph % (Auto) % [place] % (Auto) % Eos % (Auto) % Baso % (Auto) % Neut # (Auto) (1.40-6.50) K/uL Lymph # (Auto) (1.20-3.40) K/uL [place] # (Auto) (0.11-0.59) K/uL Eos # (Auto) (0.00-0.50) K/uL Baso # (Auto) (0.00-0.20) K/uL Immature Gran # (Auto) (0.01-0.20) K/uL POC Sodium (135-144) mmol/L Sodium (136-145) mmol/L POC Potassium (3.3-5.0) mmol/L Potassium (3.5-5.1) mmol/L POC Chloride (101-112) mmol/L Chloride (98-107) mmol/L Carbon Dioxide (21-32) mmol/L POC Total CO2 (24-31) mmol/L Anion Gap (3-11) POC Anion Gap (16-25) mmol/L POC BUN (7-18) mg/dl BUN (6-23) mg/dl Creatinine (0.6-1.2) mg/dl POC Creatinine (0.6-1.3) mg/dl Est Cr Clr Drug Dosing ml/min Est GFR ( Amer) ml/min Est GFR (Non-Af Amer) ml/min BUN/Creatinine Ratio (10-20) Glucose (70-99(Fasting)) mg/dl POC Glucose (70-99) mg/dl POC Glucose (other) (70-99) mg/dl Lactate 2.3 H* (0.4-2.0) mmol/L Calcium (8.6-10.3) mg/dl POC Ioniz Calcium Nick (1.12-1.32) mmol/l Magnesium 1.4 L (1.7-2.4) mg/dl Total Bilirubin (0.2-1.0) mg/dl AST (13-39) U/L ALT (7-52) U/L Alkaline Phosphatase (34-104) U/L Total Creatine Kinase (26-192) U/L Troponin I High Sens 41.1 H D (0-14) pg/ml B-Natriuretic Peptide 182 H (0-100) pg/ml Total Protein (6.0-8.3) gm/dl Albumin (3.4-5.0) gm/dl Globulin (2.5-4.0) gm/dl Albumin/Globulin Ratio (0.9-2) TSH (0.300-4.500) uIu/ml Adenovirus (PCR) Not Detected (NotDetected) B. pertussis DNA (PCR) Not Detected (NotDetected) B.parapertussis DNA PCR Not Detected (NotDetected) C. pneumoniae DNA (PCR) Not Detected (NotDetected) Coronavirus OC43 (PCR) Not Detected (NotDetected) Coronavirus HKU1 (PCR) Not Detected (NotDetected) Coronavirus 229E (PCR) Not Detected (NotDetected) SARS-CoV-2 (PCR) Not Detected (NotDetected) Coronavirus NL63 (PCR) Not Detected (NotDetected) Human Metapneumovir PCR Not Detected (NotDetected) Influenza Type A (PCR) Not Detected (NotDetected) Influenza Type B (PCR) Not Detected (NotDetected) M. pneumoniae (PCR) Not Detected (NotDetected) Parainfluenza 1 (PCR) Not Detected (NotDetected) Parainfluenza 2 (PCR) Not Detected (NotDetected) Parainfluenza 3 (PCR) Not Detected (NotDetected) Parainfluenza 4 (PCR) Not Detected (NotDetected) RSV (PCR) Not Detected (NotDetected) Entero/Rhino (PCR) Not Detected (NotDetected) Administered Medications Discontinued Medications Anastrozole (Anastrozole 1 Mg Tab) 1 mg PO QAM [facility] Stop: 12/02/23 08:59 Last Admin: 11/02/23 08:18 Dose: 1 mg Documented By: CARLITA Co-signed By: LUDWIN Dextrose (Dextrose 50% 50 Ml Syringe) 50 ml IV NOW STA Stop: 11/01/23 20:12 Last Admin: 11/01/23 20:57 Dose: Not Given Documented By: ASHLI Diclofenac Sodium (Diclofenac Sod 1% Gel 100 Gm Tube) 2 gm EXT BID [facility]; Protocol Stop: 12/02/23 10:44 Last Admin: 11/02/23 12:40 Dose: 2 gm Documented By: CARLITA Ferrous Sulfate (Ferrous Sulfate 325 Mg Tab) 325 mg PO BID [facility] Stop: 12/01/23 21:16 Last Admin: 11/02/23 08:18 Dose: 325 mg Documented By: Admin: 11/01/23 22:02 Dose: 325 mg Documented By: [facility] Lactated Ringer's (Lr) 1,000 mls @ 150 mls/hr IV .Q6H40M [facility] Stop: 11/02/23 09:34 Last Infusion: 11/02/23 10:50 Dose: Infused Documented By: Admin: 11/02/23 03:52 Dose: 150 mls/hr Documented By: [facility] Infusion: 11/02/23 03:52 Dose: Infused Documented By: [facility] Admin: 11/01/23 21:20 Dose: 150 mls/hr Documented By: [facility] Magnesium Sulfate/Dextrose (Magnesium Sulfate / D5w) 1 gm in 100 mls @ 50 mls/hr IV Q2H [facility] Stop: 11/02/23 04:29 Last Infusion: 11/02/23 05:36 Dose: Infused Documented By: [facility] Admin: 11/02/23 03:36 Dose: 50 mls/hr Documented By: [facility] Infusion: 11/02/23 03:35 Dose: Infused Documented By: [facility] Admin: 11/02/23 01:35 Dose: 50 mls/hr Documented By: [facility] Infusion: 11/02/23 01:32 Dose: Infused Documented By: [facility] Admin: 11/01/23 23:32 Dose: 50 mls/hr Documented By: [facility] Infusion: 11/01/23 23:20 Dose: Infused Documented By: [facility] Admin: 11/01/23 21:20 Dose: 50 mls/hr Documented By: [facility] Insulin Aspart (Insulin Aspart Per Unit Charge) 0 units SC ACHS [facility] Stop: 12/01/23 21:16 Last Admin: 11/02/23 12:39 Dose: 7 units Documented By: CARLITA Co-signed By: GPF Admin: 11/02/23 08:25 Dose: 2 units Documented By: CARLITA Co-signed By: AM Admin: 11/01/23 22:08 Dose: Not Given Documented By: [facility] Ondansetron HCl (Ondansetron Inj 2 Mg/Ml 2 Ml Vial) 4 mg IV Q6H PRN PRN Reason: Nausea Stop: 12/01/23 21:16 Last Admin: 11/02/23 04:06 Dose: 4 mg Documented By: [facility] Pantoprazole Sodium (Pantoprazole 40 Mg Tab) 40 mg PO DAILY [facility] Stop: 12/02/23 08:59 Last Admin: 11/02/23 08:18 Dose: 40 mg Documented By: CARLITA Potassium Chloride (Potassium Chloride 10 Meq Tabcr) 10 meq PO BID [facility] Stop: 12/01/23 21:16 Last Admin: 11/02/23 08:18 Dose: 10 meq Documented By: Admin: 11/01/23 22:02 Dose: 10 meq Documented By: DORIAN Propranolol HCl (Propranolol Hcl 20 Mg Tab) 20 mg PO QAM [facility] Stop: 12/02/23 08:59 Last Admin: 11/02/23 08:19 Dose: 20 mg Documented By: CARLITA Simvastatin (Simvastatin 20 Mg Tab) 20 mg PO HS [facility] Stop: 12/01/23 21:16 Last Admin: 11/01/23 22:02 Dose: 20 mg Documented By: DORIAN Spironolactone (Spironolactone 25 Mg Tab) 50 mg PO DAILY [facility] Stop: 12/02/23 08:59 Last Admin: 11/02/23 08:19 Dose: 50 mg Documented By: CARLITA Imaging Data Radiologist's Impression: Chest X-Ray 11/01/23 16:06 XR chest 1V portable CLINICAL HISTORY: weakness TECHNIQUE: Single frontal radiograph of the chest was obtained. Comparison: None available at the time of this dictation. FINDINGS: Exam is limited by underpenetration. Cardiomegaly is noted. The lungs are clear. No evidence of pleural effusion or pneumothorax. IMPRESSION: No acute chest disease. ACT 112: Negative or not required by law. Electronically signed by: Deandre Darden M.D. 11/01/2023 4:33 PM Shoulder X-Ray 11/01/23 16:06 XR shoulder RT min 2V routine CLINICAL HISTORY: fall, shoulder COMPARISON: None FINDINGS: No acute fracture within the right shoulder is noted. There is no evidence for dislocation. There is moderate AC joint joint space narrowing with osteophytosis. There is apparent elevation of the humeral head with narrowing of the subacromial space. IMPRESSION: 1. No fracture or dislocation within the right shoulder. 2. Moderate degenerative changes within the right shoulder. ACT 112: Negative or not required by law. Electronically signed by: Gregor Berkowitz M.D. 11/01/2023 4:58 PM Discharge Plan Visit Data Chief Complaint: Fall Stated Complaint: FALL ED Provider: Denice Yuan Patient Disposition: Admitted As Inpatient Discharge Instructions Interventions: ED Discharge Assessment Last Done: 11/01/23 20:57
--- NOTE | 2023-11-01 19:30 | History & Physical Report ---
"Date of Service November 01, 2023 Assessment & Plan (1) Hypoglycemia associated with type 2 diabetes mellitus: (2) Fall at home: (3) Elevated troponin: (4) Rhabdomyolysis: (5) Breast cancer, left breast: (6) History of nephrectomy, unilateral: (7) Hepatocellular carcinoma: Plan Rufus is a 73F w/ PMH of iron deficiency anemia, T2DM w/ CKD3, Vit D deficiency, HLD, liver steatosis/[place]/cirrhosis, renal cell carcinoma (2007, s/p resection), HTN, DCIS of L Breast (2022) who presents for weakness and a fall at home while ambulating to retrieve a snack due to feeling hypoglycemic. Weakness | Fall at Home Hypoglycemia Episode - Suspect hypoglycemic episode provoking fall at home w/ subsequent inactivity for > 12 hours - Hypoglycemic on arrival (69 L), increased to 180 following snack - Presenting workup: XR Chest and Shoulder negative Biofire negative Urine pending, reflex culture if indicated - A1c ordered, noted to be 5.1 10/03/23 - Acute hypoglycemia, repletion ongoing - Home diabetes regimen held Start BSG checks ACHS Start SSI Re-calculate basal-bolus regimen following 24 hours of SSI D50 available for hypoglycemia - PT/OT ordered Acute Dehydration CK Elevation | Lactate Elevation | Troponin Elevation - CK Elevation: Rhabdomyolysis Mild Creatinine elevation from baseline 1.19 to 1.29 on admission, w/o SHIREEN CK elevation to 449, likely a/w fall and immobility Start maintenance IVFs, hold diuretic - Lactate Elevation: Likely a/w intravascular depletion d/t no PO intake/immobility for 12+ hours Fluid resuscitation as above - Troponin Elevation: Asymptomatic w/o EKG changes Suspect demand ischemia in the setting of acute dehydration, rhabdomyolysis, and immobility Trend troponin to peak Hypomagnesemia - 1.4 on presentation - Repletion Mg 1g x 4 Hepatocellular Carcinoma Liver Cirrhosis | Ascites - S/p TACE procedure at [facility] [place] 04/26/23, following with Hepatology Required paracentesis following TACE d/t increasing ascites/dyspnea - Elevated Bilirubin , Now 4.2 from baseline 1.5 Suspect component of dehydration causing bilirubin rise, no jaundice/scleral icterus Aminotransferases wnl Alk Phos elevated - Local follow up with [facility] GI planned 11/13/23, need to ensure [facility] Hepatology follow up scheduled Chronic Conditions: - Iron Deficiency Anemia - HgB stable, Iron profile stable - T2DM w/ CKD3 - as above in Hypoglycemia - Vit D Deficiency - continue supplementation - HLD - continue statin - Renal Cell Carcinoma s/p Resection - stable, outpatient f/u with Nephrology - HTN - continue antihypertensives - DCIS of L Breast - stable, continue maintenance Anastrazole Code: Full Diet: DM2, HH IVF: Maintenance, held diuretic Dispo: Med/tele Consults: PT/OT History of Present Illness Chief Complaint: Weakness, Fall at Home Primary Care Provider: Soco Lopez MD Rufus is a 73F w/ PMH of iron deficiency anemia, T2DM w/ CKD3, Vit D deficiency, HLD, liver steatosis/[place]/cirrhosis, renal cell carcinoma (2007, s/p resection), HTN, DCIS of L Breast (2022) who presents for weakness and a fall at home while ambulating to retrieve a snack due to feeling hypoglycemic. ED Course: None HPI: - Patient presenting after being found at home on the floor after a fall - She notes that she fell this morning around 2:30 AM and was unable to get back up - She states that she awakened and felt like her sugar was low and fell on her way to get a snack, striking her right shoulder - Patient notes that this has happened to her before and she is convinced the episode was hypoglycemia related - Patient notes she felt lightheadedness prior to her fall but that this is consistent with previous low sugars - She has been in the process of titrating her basal insulin down due to hypoglycemia - She denies chest pain, increased dyspnea (from baseline), headaches, dizziness, or abdominal pain - Denies dysuria, frequency, or urgency. No acute bowel changes. No fevers or chills. - Patient has hx of HCC, s/p TACE procedure 05/06/23 at [facility] followed by paracentesis, patient had dyspnea d/t ascites following procedure, but it has not increased - Patient has hx of DCIS s/p mastectomy in 2022, she continues to take anastrazole daily as maintenance therapy - Patient has hx of RCC s/p nephrectomy in 2008, follows w/ Dr. Dacosta, no need since nephrectomy - Patient denies claudication, orthopnea, or LE edema. She notes that she has not had increased abdominal distension. - She is largely independent at baseline, but this is not the first time she has fallen. Allergies Allergy/AdvReac Type Severity Reaction Status Date / Time oxycodone AdvReac Mild NAUSEA Verified 10/10/23 10:10 WITH EMESIS Home Medications Medication Instructions Recorded Confirmed Type acetaminophen 500 mg tablet 1,000 mg PO BID PRN Pain 02/03/22 11/01/23 History mecobalamin (vitamin B12) 1,000 1,000 mcg PO DAILY 02/03/22 11/01/23 History mcg chewable tablet anastrozole 1 mg tablet 1 mg PO QAM 10/05/22 11/01/23 History omeprazole 20 mg tablet,delayed 20 mg PO DAILY #90 tabs 12/30/22 11/01/23 Rx release simvastatin 20 mg tablet 20 mg PO HS #90 tabs 12/30/22 11/01/23 Rx ferrous sulfate 324 mg (65 mg 324 mg PO BID #180 tabs 01/16/23 11/01/23 Rx iron) tablet,delayed release propranolol 20 mg tablet 20 mg PO QAM #30 tabs 04/12/23 11/01/23 Rx ergocalciferol (vitamin D2) 1,250 50,000 unit PO MONTHLY #12 caps 04/18/23 11/01/23 Rx mcg (50,000 unit) capsule blood sugar diagnostic #200 ea 07/04/23 10/10/23 Rx metformin 500 mg tablet 500 mg PO BID #180 tabs 07/04/23 11/01/23 Rx sitagliptin phosphate 100 mg 100 mg PO QAM #90 tabs 07/04/23 11/01/23 Rx tablet (Januvia) furosemide 20 mg tablet (Lasix) 20 mg PO DAILY 08/29/23 11/01/23 History spironolactone 50 mg tablet 50 mg PO DAILY 08/29/23 11/01/23 History insulin aspar prot-insulin aspart 40 unit (0.4 mL) subcut BID #90 mL 10/10/23 11/01/23 Rx 100 unit/mL (70-30) subcutaneous pen (Novolog Mix 70-30FlexPen U-100) potassium chloride 10 mEq 10 meq PO BID #180 caps 10/10/23 11/01/23 Rx capsule,extended release Past Med/Surg History Problem List (Updated 11/01/23 @ 22:17 by Dean Bertrand DO) Hepatocellular carcinoma Elevated troponin Fall at home Hypoglycemia associated with type 2 diabetes mellitus Leg cramps Iron deficiency anemia Type 2 diabetes mellitus with obesity Vitamin D deficiency (Chronic) Proteinuria (Chronic) Former smoker (Chronic) Anemia Thrombocytopenia Leukopenia Steatosis of liver Hypercholesterolemia History of renal cell carcinoma (~2007) Left Kidney 2008 Type 2 diabetes mellitus with retinopathy of both eyes, with long-term current use of insulin Hypertension (Chronic) Absent kidney, acquired (Chronic) [place] (nonalcoholic steatohepatitis) Cirrhosis of liver 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) Vitamin D deficiency (Chronic) Chronic kidney disease, stage 3 (Chronic) monitoring Medical History History of kidney stones Breast cancer, left breast Thrombocytopenia Hyperlipidemia Sleep apnea Surgical History Status post left breast lumpectomy History of esophagogastroduodenoscopy (EGD) Status post right knee replacement History of cataract surgery Status post cystoscopy with ureteral stent placement History of anesthesia reaction History of lithotripsy History of colonoscopy History of nephrectomy, unilateral History of tooth extraction History of surgical procedure on eye proper using laser Family History Father Myocardial infarction Stroke Diabetes Mother History of kidney cancer Diabetes Sister Aspiration into airway Other No family history of adverse response to anesthesia Denies family history of Prostate cancer Breast cancer Colorectal cancer Social History Smoking Status: Former smoker Tobacco Type: Cigarettes Second Hand Exposure: No; Do You Dip or Chew Tobacco: No; Hx Alcohol Use: No Hx Substance Use: No Preferred Language: Bengali Communication Ability: Effective Visual Impairment: No Limitations Hearing Ability: Normal Employee Benefits Insurance Agent Required: No Beliefs That Will Affect Care: None marital status: Single Current Living Situation: Alone current occupational status: retired 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 [employer] How many Children do You have: 0 Other Information That Helps Us Care for You: No Feels Safe at Home: Yes Safety Concerns: Feels Safe At This Time Childhood Exposure to Second-Hand Smoke: No Diet: regular caffeine: No during the past year weight has: remained stable Dental Care, Regularly: No Physical Activity Frequency: Does not Exercise Seatbelt Use: always Sunscreen Use: No Assistive Devices: Cane Physical Exam Physical Exam: Gen: NAD, alert, interactive HEENT: Supple, no LAD, no thyromegaly, no JVD Resp:Conversational dyspnea, no wheezing/rhonchi/rales, restricted air movement, CTAB CV:RRR, normal S1/S2, no M/R/G Abd: Soft, mild distension, no TTP, normoactive bowels, no masses Extr: 2+ dp bilaterally, no edema - Pain w/ ROM of shoulder, no laceration s, edema, or ecchymosis. 2+ radial pulses. Strength 5/5. Skin: No rashes lesions or erythema Results & Data Results & Data Vital Signs (Past 12 Hours) Vital Signs Temp Pulse Resp BP Pulse Ox O2 Del Method 11/01/23 18:06 119/63 11/01/23 17:33 87 21 94 11/01/23 17:06 87 25 H 95 11/01/23 16:51 85 31 H 94 11/01/23 16:19 93 11/01/23 16:06 84 25 H 95 11/01/23 15:38 36.4 C L 88 22 138/77 95 Room Air Supervising Physician Co-Signing Physician Notes Attending addendum: I have physically seen this patient, have supervised the medical residents activities, and agree with the H&P unless as otherwise noted. Assessment and Plan: Status post fall at home- Patient was reportedly on the floor for at least 12 hours after a fall. Likely secondary to hypoglycemic event Chest x-ray negative, EKG with no signs of arrhythmia, BioFire negative Will follow urine culture and sensitivity, and blood cultures and sensitivities Reported right shoulder discomfort, with x-ray showing degeneration without fracture or dislocation Consult PT/OT Hypoglycemia associated with diabetes mellitus type 2- Glucose 69 upon admission Has been on 70/30 insulin twice daily dosing, but has not taken any since last evening, 24 hours ago Has reportedly been on decreasing dosages in the outpatient setting due to blood sugars gradually lowering Most recent hemoglobin A1c on 10/03/2023 with 5.1 Hold 70/30 Hold metformin Placed on Accu-Cheks with SSI as noted Patient is communicative, and eating okay, will likely not need D50 at this time Acute kidney injury superimposed on CKD/rhabdomyolysis- Creatinine 1.29, with base 1.1 CK 449 Hold furosemide IV fluids as noted Repeat BMP and CK in a.m. Hypomagnesemia- Magnesium 1.4 at admission Replacing with mag riders as noted, recheck laboratories in a.m. Hepatocellular carcinoma/liver cirrhosis/[place]/ascites- Status post TACE procedure at [facility] on 04/26/2023, and will continue to follow with hepatology, but does have local GI appointment Total bilirubin 4.2, with base 1.6 Repeat laboratories after rehydration Remaining orders and notations as noted Resident Activity Tracking Resident Involvement: Resident Care Provided Care Provided: Adult Hospital Medicine"
[2023-11-01 19:50] LABS: Magnesium 1.4 mg/dl (1.7-2.4)
[2023-11-01 20:11] LABS: Adenovirus PCR Not Detected (NotDetected); Bordetella parapertussis PCR Not Detected (NotDetected); Bordetella pertussis PCR Not Detected (NotDetected); Chlamydia pneumoniae PCR Not Detected (NotDetected); Coronavirus 229E PCR Not Detected (NotDetected); Coronavirus CoV-2 (COVID19)PCR Not Detected (NotDetected); Coronavirus HKU1 PCR Not Detected (NotDetected); Coronavirus NL63 PCR Not Detected (NotDetected); Coronavirus OC43PCR Not Detected (NotDetected); Human Metapneumovirus PCR Not Detected (NotDetected); Influenza A PCR Not Detected (NotDetected); Influenza B PCR Not Detected (NotDetected); Mycoplasma pneumoniae PCR Not Detected (NotDetected); Parainfluenza Virus 1 PCR Not Detected (NotDetected); Parainfluenza Virus 2 PCR Not Detected (NotDetected); Parainfluenza Virus 3 PCR Not Detected (NotDetected); Parainfluenza Virus 4 PCR Not Detected (NotDetected); Respiratory Syncytial VirusPCR Not Detected (NotDetected); Rhinovirus/Enterovirus PCR Not Detected (NotDetected)
[2023-11-01] MEDS: DEXTROSE 50% 50 ML SYRINGE IV STA (20:57)
[2023-11-01] MEDS ORDERED: DEXTROSE 50% 50 ML SYRINGE IV PRN (21:17)
[2023-11-01] MEDS ORDERED: GLUCOSE 10 TAB/TUBE PO PRN (21:17)
[2023-11-01] MEDS ORDERED: CARBOHYDRATES FOR HYPOGLYCEMIA PO PRN (21:17)
[2023-11-01] MEDS ORDERED: GLUCOSE 40% GEL 15 GM TUBE PO PRN (21:17)
[2023-11-01] MEDS ORDERED: ACETAMINOPHEN 325 MG TAB PO PRN (21:17)
[2023-11-01] MEDS ORDERED: POLYETHYLENE (MIRALAX) 17 GM PACK PO PRN (21:17)
[2023-11-01] MEDS ORDERED: MoRPHine SULFATE 2 MG/ML CARP IV PRN (21:17)
[2023-11-01] MEDS ORDERED: GLUCAGON FOR INJ 1 MG VIAL SQ PRN (21:17)
[2023-11-01] MEDS: LACTATED RINGER'S 1,000 ML IV SCH (21:20)
[2023-11-01] MEDS: MAGNESIUM SULFATE / D5W 1 GM/100 ML BAG IV SCH (21:20)
[2023-11-01] MEDS: POTASSIUM CHLORIDE 10 MEQ TABCR PO SCH (22:02)
[2023-11-01] MEDS: FERROUS SULFATE 325 MG TAB PO SCH (22:02)
[2023-11-01] MEDS: SIMVASTATIN 20 MG TAB PO SCH (22:02)
[2023-11-01] MEDS: INSULIN ASPART PER UNIT CHARGE SC SCH (22:08)
--- NOTE | 2023-11-02 00:45 | Billing Data ---
Date of Service November 02, 2023 Coding Level of Care Code 47202 INT INP/OBS CARE
[2023-11-02] MEDS: ONDANSETRON INJ 2 MG/ML 2 ML VIAL IV PRN (04:06)
[2023-11-02 07:04] LABS: Albumin Level 2.7 gm/dl (3.4-5.0); BUN Creatinine Ratio 17.4 (10-20); Bilirubin,Total 2.2 mg/dl (0.2-1.0); Calcium 8.5 mg/dl (8.6-10.3); Creatinine Clr Calc Pharmacy 51.3 ml/min; Est GFR (African American) 46.6 ml/min; Est GFR (Non-African American) 40.2 ml/min; Globulin 2.7 gm/dl (2.5-4.0); Magnesium 2.1 mg/dl (1.7-2.4); Potassium 4.6 mmol/L (3.5-5.1); Total Protein 5.4 gm/dl (6.0-8.3)
[2023-11-02 07:12] LABS: Estimated Average Glucose 103 mg/dl; Hemoglobin A1C 5.2 % (4.5-5.6)
[2023-11-02 08:05] LABS: Hematocrit (blood only) 25.1 % (37.0-47.0); Hemoglobin 8.6 g/dl (12.0-16.0); Mean Corpuscular Hemoglobin 33.1 pg (25.0-34.0); Mean Corpuscular Hgb Conc 34.3 g/dL (32.0-36.0); Mean Corpuscular Volume 96.5 fL (80.0-100.0); Mean Platelet Volume 10.1 fL (9.4-12.4); Platelet Count 48 K/uL (130-400); RDW Coefficient of Variation 16.8 % (11.5-14.5); RDW Standard Deviation 58.5 fL (36.4-46.3); White Blood Count 4.14 K/ul (4.8-10.8)
[2023-11-02 08:07] LABS: Platelet Estimate Decreased (Normal)
[2023-11-02] MEDS: PANTOprazole 40 MG TAB PO SCH (08:18)
[2023-11-02] MEDS: ANASTROZOLE 1 MG TAB PO SCH (08:18)
[2023-11-02] MEDS: PROPRANOLOL HCL 20 MG TAB PO SCH (08:19)
[2023-11-02] MEDS: SPIRONOLACTONE 25 MG TAB PO SCH (08:19)
--- NOTE | 2023-11-02 09:14 | Electrocardiogram Report ---
Test Reason : Blood Pressure : / mmHG Vent. Rate : 086 BPM Atrial Rate : 086 BPM P-R Int : 126 ms QRS Dur : 090 ms QT Int : 400 ms P-R-T Axes : -03 021 035 degrees QTc Int : 478 ms Sinus rhythm with Premature supraventricular complexes Nonspecific T wave abnormality Prolonged QT Abnormal ECG When compared with ECG of 06-JUN-2022 07:37, Premature supraventricular complexes are now Present Nonspecific T wave abnormality, worse in Inferior leads Confirmed by Shukri Tripathi ([id number]) on 11/02/2023 9:14:06 AM Referred By: Confirmed By:Shukri Tripathi
[2023-11-02 10:59] LABS: Appearance Urine Clear (Clear); Bacteria Urine Automated None Seen (None Seen); Bilirubin Urine Negative (Negative); Blood Urine Negative (Negative); Color Urine Yellow; Epithelial Cell Urine Auto 0-2 /hpf (0-2); Glucose Urine UA Negative (Negative); Ketones Urine Trace (Negative); Leukocyte Esterase Urine 1+ (Negative); Nitrite Urine Negative (Negative); Protein Urine Negative (Negative); RBC Urine Automated 0-2 /hpf (0-2); Specific Gravity Urine 1.016 (1.000-1.030); Urobilinogen Urine Negative (Negative); pH Urine 5.5 (4.5-7.5)
[2023-11-02] MEDS: DICLOFENAC SOD 1% GEL 100 GM TUBE EXT SCH (12:40)
--- NOTE | 2023-11-02 17:15 | Discharge Summary ---
"Date of Service November 02, 2023 Admission HPI Per Admitting Provider Rufus is a 73F w/ PMH of iron deficiency anemia, T2DM w/ CKD3, Vit D deficiency, HLD, liver steatosis/[place]/cirrhosis, renal cell carcinoma (2007, s/p resection), HTN, DCIS of L Breast (2022) who presents for weakness and a fall at home while ambulating to retrieve a snack due to feeling hypoglycemic. ED Course: None HPI: - Patient presenting after being found at home on the floor after a fall - She notes that she fell this morning around 2:30 AM and was unable to get back up - She states that she awakened and felt like her sugar was low and fell on her way to get a snack, striking her right shoulder - Patient notes that this has happened to her before and she is convinced the episode was hypoglycemia related - Patient notes she felt lightheadedness prior to her fall but that this is consistent with previous low sugars - She has been in the process of titrating her basal insulin down due to hypoglycemia - She denies chest pain, increased dyspnea (from baseline), headaches, dizziness, or abdominal pain - Denies dysuria, frequency, or urgency. No acute bowel changes. No fevers or chills. - Patient has hx of HCC, s/[place] [facility] [place] [facility], patient had dyspnea d/t ascites following procedure, but it has not increased - Patient has hx of DCIS s/p mastectomy in 2022, she continues to take anastrazole daily as maintenance therapy - Patient has hx of RCC s/p nephrectomy in 2008, follows w/ Dr. Dacosta, no need since nephrectomy - Patient denies claudication, orthopnea, or LE edema. She notes that she has not had increased abdominal distension. - She is largely independent at baseline, but this is not the first time she has fallen. Admission Exam Per Admitting Provider Gen: NAD, alert, interactive HEENT: Supple, no LAD, no thyromegaly, no JVD Resp:Conversational dyspnea, no wheezing/rhonchi/rales, restricted air movement, CTAB CV:RRR, normal S1/S2, no M/R/G Abd: Soft, mild distension, no TTP, normoactive bowels, no masses Extr: 2+ dp bilaterally, no edema - Pain w/ ROM of shoulder, no lacerations, edema, or ecchymosis. 2+ radial pulses. Strength 5/5. Skin: No rashes lesions or erythema Principal Diagnosis Fall 2/2 hypoglycemia Discharge Exam General: NAD, AOx3 HEENT: NCAT, MMM CV: RRR, no m/r/g, + S1/S2 Resp: CTAB, nonlabored Abd: soft, nt/nd, +BS, no masses MSK: R shoulder tender & ROM restricted d/t pain; no lacerations, ecchymosis, erythema, warmth Skin: No rashes lesions or erythema Discharge Data Allergies Allergy/AdvReac Type Severity Reaction Status Date / Time oxycodone AdvReac Mild NAUSEA Verified 10/10/23 10:10 WITH EMESIS Consultations 11/01/23 19:24 ED Decision to Admit Stat Ordered Studies Chest X-Ray 11/01/23 16:06 XR chest 1V portable CLINICAL HISTORY: weakness TECHNIQUE: Single frontal radiograph of the chest was obtained. Comparison: None available at the time of this dictation. FINDINGS: Exam is limited by underpenetration. Cardiomegaly is noted. The lungs are clear. No evidence of pleural effusion or pneumothorax. IMPRESSION: No acute chest disease. Electronically signed by: Deandre Darden M.D. 11/01/2023 4:33 PM Shoulder X-Ray 11/01/23 16:06 XR shoulder RT min 2V routine CLINICAL HISTORY: fall, shoulder COMPARISON: None FINDINGS: No acute fracture within the right shoulder is noted. There is no evidence for dislocation. There is moderate AC joint joint space narrowing with osteophytosis. There is apparent elevation of the humeral head with narrowing of the subacromial space. IMPRESSION: 1. No fracture or dislocation within the right shoulder. 2. Moderate degenerative changes within the right shoulder. Electronically signed by: Gregor Berkowitz M.D. 11/01/2023 4:58 PM Hospital Course (1) Hypoglycemia associated with type 2 diabetes mellitus: (2) Fall at home: (3) Elevated troponin: (4) Rhabdomyolysis: (5) Breast cancer, left breast: (6) History of nephrectomy, unilateral: (7) Hepatocellular carcinoma: Iona Hooper is a 73F w/ PMH of iron deficiency anemia, T2DM w/ CKD3, Vit D deficiency, HLD, liver steatosis/[place]/cirrhosis, renal cell carcinoma (2007, s/p resection), HTN, DCIS of L Breast (2022) who presents for weakness and a fall at home while ambulating to retrieve a snack due to feeling hypoglycemic. Weakness | Fall at Home 2/2 Hypoglycemia - Pt reports similar episode(s) in the past - Hypoglycemic on arrival (69); increased to 180 following snack - A1c 5.2 - Home diabetes regimen held; pt was on SSI w D50 available for hypoglycemia - PT/OT ordered Acute Dehydration CK Elevation | Lactate Elevation | Troponin Elevation - Fall at home w/ subsequent inactivity for > 12 hours - Cr mildly elevated: from baseline 1.19 to 1.32 Pt given maintenance IVFs, diuretic held - CK elevation: 449 --> 293 at discharge Likely a/w fall and immobility - Lactate elevation: 2.3; resolved to 1.8 at discharge Likely a/w intravascular depletion d/t no PO intake/immobility for 12+ hours Fluid resuscitation as above - Troponin elevation: 29.2 --> 41.1 --> 45.0 Asymptomatic w/o EKG changes Suspect demand ischemia in the setting of acute dehydration, rhabdomyolysis, and immobility Hypomagnesemia - 1.4 on presentation - Pt given Mg 1g x 4 - Resolved to 2.1 at discharge Hepatocellular Carcinoma Liver Cirrhosis | Ascites - [place] [facility], following with Hepatology Required paracentesis following TACE d/t increasing ascites/dyspnea - Elevated Bilirubin , Now 4.2 from baseline 1.5 Suspect component of dehydration causing bilirubin rise, no jaundice/scleral icterus Aminotransferases wnl Alk Phos elevated - Local follow [place] [facility] [place]/13/23, need to ensure [facility] [place] scheduled Chronic Conditions: - Iron Deficiency Anemia - HgB stable, Iron profile stable - T2DM w/ CKD3 - as above in Hypoglycemia - Vit D Deficiency - continue supplementation - HLD - continue statin - Renal Cell Carcinoma s/p Resection - stable, outpatient f/u with Nephrology - HTN - continue antihypertensives - DCIS of L Breast - stable, continue maintenance Anastrazole Code: Full Diet: DM2, HH IVF: Maintenance, held diuretic Dispo: Med/tele Consults: PT/OT Total Time Total Time Spent Total Time Spent (In Minutes): <30 Discharge Plan Discharge Items Patient Disposition: Home - Home Health Services Reason For Visit: HYPOGLYCEMIA, FALL Discharge Diagnosis: Fall 2/2 hypoglycemic episode Activity: Per Instructions section Non-emergency contact: Primary Care Provider Call non-emergency contact if: you have any medication questions, your symptoms worsen and you have a fever Follow-up/Referrals: Soco Lopez MD [Primary Care Provider] - 11/20/23 11:00 am (Scheduled with La Hennessy PA-C on November 20, 2023 at 11:00 am) Diet: Regular and Carb Consistent or DM2 Addtl Attending Provider Instructions: You were admitted to the hospital after a fall due to your low blood sugar (hypoglycemia). You were also found to be dehydrated, so you were treated by repleting blood sugar and rehydration. Please bring this discharge summary with you to your next office appointment so that your provider can review it at that time. Your medication list has been reviewed and reconciled upon discharge to ensure accuracy and continuity of care. An updated list of all your medications is included with your hospital discharge paperwork. Please review this list closely, and make note of any changes. We have STOPPED your insulin CONTINUE your metformin 500mg twice daily CONTINUE your Januvia 100mg every morning Follow-up appointments: Make an appointment with your PCP by 11/07 to manage your hypoglycemia. It is very important that you follow up with them shortly after discharge from the hospital. Continue seeing your shells inspector regarding your hepatocellular carcinoma and cirrhosis You will have PT with Home Health starting Sunday 11/05 Contact your PCP if your blood sugars fall below 80 or are repeatedly above 200. Call 911 or go to the ER if you experience any of the following: Sudden, severe abdominal pain or nausea/vomiting Severe chest pain, or chest pain that radiates (moves) to your jaw or arm Sudden, severe shortness of breath or difficulty breathing We recommend getting a life alert bracelet in case of emergencies in which you cannot reach a phone. Thank you for allowing us to participate in your care. Pending Studies at Discharge: No Stand-Alone Forms: My [employer], Smoking Cessation Medications and DC Order Prescriptions: New diclofenac sodium [Voltaren Arthritis Pain] 1 % gel 2 g topical QID Qty: 100 0RF Rx Instructions: apply to right shoulder Continued omeprazole 20 mg tablet,delayed release (DR/EC) 20 mg PO DAILY Qty: 90 3RF simvastatin 20 mg tablet 20 mg PO HS Qty: 90 3RF ferrous sulfate 324 mg (65 mg iron) tablet,delayed release (DR/EC) 324 mg PO BID Qty: 180 3RF Rx Instructions: MAIL MEDICATION TO PATIENT ergocalciferol (vitamin D2) 1,250 mcg (50,000 unit) capsule 50,000 unit PO MONTHLY Qty: 12 0RF Januvia 100 mg tablet 100 mg PO QAM Qty: 90 3RF metformin 500 mg tablet 500 mg PO BID Qty: 180 3RF (DME) blood sugar diagnostic Strip See Rx Instructions .Route Qty: 200 3RF Rx Instructions: ONE TOUCH ULTRA TEST STRIPS- Check BS BID DX E11.319 / Z79.4 spironolactone 50 mg tablet 50 mg PO DAILY furosemide [Lasix] 20 mg tablet 20 mg PO DAILY mecobalamin (vitamin B12) 1,000 mcg tablet,chewable 1,000 mcg PO DAILY acetaminophen 500 mg tablet 1,000 mg PO BID PRN (Reason: Pain) potassium chloride 10 mEq capsule, extended release 10 meq PO BID Qty: 180 3RF propranolol 20 mg tablet 20 mg PO QAM Qty: 30 0RF anastrozole 1 mg Tablet 1 mg PO QAM Discontinued insulin asp prt-insulin aspart [Novolog Mix 70-30FlexPen U-100] 100 unit/mL (70-30) insulin pen 40 unit SUBCUT BID Qty: 90 3RF Discharge Orders: Discharge Order (Routine); Ordered 11/02/23 Ordered By: Kalen Long Admission Data Admit Date/Time: 11/01/23 20:18 Attending Provider: Rachid Orozco Admit Provider: Dean Bertrand Primary Care Provider: Soco oLpez Other Providers: Govind Rose Other Interventions: Discharge Summary Assessment (RN) Last Done: 11/02/23 16:04 Supervising Physician Co-Signing Physician Notes I personally examined the patient and verified all sherman points of history and exam, discussed case, and agree with decision making with Dr Long Other than right shoulder pain she is feeling better. She would very much li ke to go home and feels like she would be okay at home. She expresses that she has good safety awareness and tends to get around slowly. She notes that therapy told her that she could go to rehab, or if therapy at home, but she is very clear that she wants to go home. Right shoulder pain better than before but still hurts with movement. Vitals noted, in general she is awake and alert pleasant no distress. HEENT normocephalic atraumatic mucous membranes moist. Right shoulder fairly tender to palpation especially superior and lateral there is no crepitus no step-off no notable joint effusion. Completely unassisted she is able to get up from the chair on her own slowly but steadily with no loss of balance, and then utilizing a walker she is able to walk slowly and steadily well out into the hallway, turn 180 degrees under her own power with no assistance, make it back to the chair and sit in the chair with no unsteadiness under her own power. Fallagree with patient almost certainly hypoglycemia. type 2 [id number] noted. Given her A1c as well as her age, and the fact that she fell from hypoglycemiastop insulins. Continue her oral agents. She already follows glucoses twice daily. Follow-up outpatient with her PCP, discussed that for now given the overall situation at least short-term a reasonable goal would be anything under 200 being okay. PCP can refine treat ment from there, possibly continuing to de-escalate therapy depending on her glycemic control right shoulder paindue to pain not able to get a very detailed exam, x-ray shows no fracture. Discussed with patient I suspect simple diffuse soft tissue injury, but cannot rule out rotator cuff injury, also could be a bit of a traumatic arthritis flare. At this point she is able to get around okay and very much wants to go homethis appears to be reasonable given her mobility. Utilize Voltaren gel on her shoulder 4 times dailyif it is not improving over the next week discussed that we would then want her to see her PCP or orthopedic surgery (at her PCPs discretion) to better evaluate the soft tissue given that right now with the acute pain I am not really able to perform a detailed physica l exam. She agrees with this plan. Safe/stable for home, outpatient PT, outpatient PCP follow-up next week. Otherwise as above. Walker prescription written. Resident Activity Tracking Resident Involvement: Resident Care Provided Care Provided: Adult [facility] Medicine"
--- NOTE | 2023-11-02 18:47 | Billing Data ---
Date of Service November 02, 2023 Coding Level of Care Code 86244 IN/OBS DISCH 30 MIN/LESS
== END 2023-11-02 17:53 | disposition home health service (06) | DRG 638 ==
LOC: ED 15:48 → 2S 20:18 → SUATTDRO 20:18 → 2S 20:57
DX: N17.9 Acute kidney failure, unspecified; E83.42 Hypomagnesemia; Z79.84 Long term (current) use of oral hypoglycemic drugs; Z87.891 Personal history of nicotine dependence; K74.60 Unspecified cirrhosis of liver; W18.39XA Other fall on same level, initial encounter; R18.8 Other ascites; N18.30 Chronic kidney disease, stage 3 unspecified; E86.0 Dehydration; M62.82 Rhabdomyolysis; Y92.009 Unspecified place in unspecified non-institutional (private) residence as the place of occurrence of the external cause; C50.912 Malignant neoplasm of unspecified site of left female breast; Z88.5 Allergy status to narcotic agent; C22.0 Liver cell carcinoma; I24.89 Other forms of acute ischemic heart disease; E55.9 Vitamin D deficiency, unspecified; E11.649 Type 2 diabetes mellitus with hypoglycemia without coma; Z90.5 Acquired absence of kidney

== ENCOUNTER 2024-01-01 15:43 | Inpatient (IN) ==
[2024-01-01 16:47] LABS: Basophils # (auto) 0.02 K/uL (0.00-0.20); Basophils % (auto) 0.5 %; Eosinophils # (auto) 0.02 K/uL (0.00-0.50); Eosinophils % (auto) 0.5 %; Hematocrit (blood only) 24.9 % (37.0-47.0); Hemoglobin 8.1 g/dl (12.0-16.0); Immature Granulocytes # (auto) 0.01 K/uL (0.01-0.20); Immature Granulocytes % (auto) 0.3 %; Lymphocytes # (auto) 0.59 K/uL (1.20-3.40); Lymphocytes % (auto) 15.2 %; Mean Corpuscular Hemoglobin 33.3 pg (25.0-34.0); Mean Corpuscular Hgb Conc 32.5 g/dL (32.0-36.0); Mean Corpuscular Volume 102.5 fL (80.0-100.0); Mean Platelet Volume 9.8 fL (9.4-12.4); Monocytes # (auto) 0.34 K/uL (0.11-0.59); Monocytes % (auto) 8.7 %; Neutrophils # (auto) 2.91 K/uL (1.40-6.50); Neutrophils % (auto) 74.8 %; Platelet Count 63 K/uL (130-400); RDW Coefficient of Variation 17.7 % (11.5-14.5); RDW Standard Deviation 65.1 fL (36.4-46.3); Red Blood Count 2.43 M/uL (4.20-5.40); White Blood Count 3.89 K/ul (4.8-10.8)
--- NOTE | 2024-01-01 17:05 | XRay Report ---
XR chest 1V portable HISTORY: 73 years-old Female Dyspnea acute short of breath COMPARISON: 11/01/2023 TECHNIQUE: AP view the chest FINDINGS: Layering moderate to large left pleural effusion with left lung volume loss. Cardiac silhouette is en larged. No pneumothorax. The right lung is clear. Bones appear grossly intact. IMPRESSION: 1. Cardiomegaly without pulmonary edema. 2. Moderate to large left pleural effusion with left lung volume loss. ACT 112: Negative or not required by law. The above report was generated using voice recognition software. It may contain grammatical, syntax o r spelling errors. Electronically signed by: Claude Reese M.D. 01/01/2024 5:02 PM
[2024-01-01 17:08] LABS: Albumin Globulin Ratio 1.1 (0.9-2); Albumin Level 3.2 gm/dl (3.4-5.0); BUN Creatinine Ratio 20.5 (10-20); Bilirubin,Total 1.6 mg/dl (0.2-1.0); Calcium 9.2 mg/dl (8.6-10.3); Creatinine Clr Calc Pharmacy 60.9 ml/min; Est GFR (African American) 56.8 ml/min; Potassium 4.9 mmol/L (3.5-5.1); Total Protein 6.2 gm/dl (6.0-8.3)
--- NOTE | 2024-01-01 17:10 | Emergency Department Note ---
Impression & Plan Pleural effusion on left, Acute dyspnea, Respiratory failure ED Provider Note NAME: LIZABETH ALEMNDAREZ AGE: 73 SEX: F : 1950 ARRIVES VIA: Ambulance INFORMANT: Patient, ED PROVIDER(S): Luis Cunha MD CHIEF COMPLAINT: Shortness of breath, outpatient referral MEDICAL DECISION MAKING: Patient presents due to concern for shortness of breath and outpatient referral. The patient was noted to be dyspneic on exam with increased work of breathing and conversational dyspnea. IV was established and blood work was obtained. Patient was started on BiPAP. Patient's blood work shows a white count of 3.8 with hemoglobin 8.1. Platelet count of 63,000. Patient does have a known history of Melgar and cirrhosis. BioFire negative. Chest x-ray does show concern for left-sided large pleural effusion. Upon reassessment the patient did appear to be improved on the BiPAP and had received IV Lasix. I did speak the on-call hospitalist service MORGAN Andrews Dr. and the patient was admitted to the medicine service. Critical Care: I have personally spent 35 minutes of critical care time in direct management of this patient. This includes bedside care, interpretation of diagnostic studies, and testing, discussion with consultants, patient, and family members, and other require inpatient management activities. This 35 minutes is in excess of all separately billable procedures. Discussion w/ other healthcare providers: Tima Tracey PA-C and Dr. Cid inpatient medicine service Prior /Outside records reviewed: None Differential diagnosis: Reactive airway disease, pneumonia, pneumothorax, COPD, CHF, ACS, pulmonary embolism, musculoskeletal, GERD as well as other pathologies were considered. Diagnostics, as interpreted by me: ECG: Likely sinus, rate of 65, normal QRS duration, normal axis no ST elevations. Cardiac monitoring: An order was placed for continuous cardiac monitoring. The monitor shows a rate of 67 with sinus rhythm. Patient was placed on pulse oximetry Medical decision rules: None Imaging studies: I informally interpreted the patient's chest x-ray shows large left pleural effusion with formal report to follow. HPI:Patient presents due to concern for worsening shortness of breath. The patient reportedly has had about 2 weeks worth of symptoms but has worsened in the last several days. The patient is accompanied by family member at bedside. Patient states that she does have a known history of Melgar cirrhosis. Patient was at GI clinic and they referred her here for worsening symptoms. The patient does use a CPAP. Patient reports that she did have a paracentesis in the past and is trying to be compliant with her diuretics as well as fluid and sodium restriction. Patient denies any falls or trauma. The patient states that she has had a nonproductive cough. PAST MEDICAL HISTORY: See Below PAST SURGICAL HISTORY: See Below SOCIAL HISTORY: See Below HOME MEDICATIONS: See Below ALLERGIES: See Below VITALS: See Below PHYSICAL EXAMINATION: GENERAL: Conversational dyspnea mild distress. EYE EXAM: Normal conjunctiva. PERRL, no anisocoria and EOM's grossly intact w/o pain. OROPHARYNX: Moist mucus membranes, grossly normal dentition. NECK: Trachea midline, no stridor. LUNGS: Decreased breath sounds left chest. Normal chest wall mechanics. HEART: NSR, no MRG. ABDOMEN: Abdomen soft, non-tender, no masses, no rebound or guarding. BACK: No CVA TTP. SKIN: No rashes and no bruising. UPPER EXTREMITIES: Upper extremities are grossly normal. LOWER EXTREMITIES: Grossly normal, bilateral lower extremity edema without calf pain or erythema. NEURO EXAM: A&O x3, cranial nerves II-XII grossly intact, normal speech, moves all 4 extremities. Past Med/Surg History Problem List (Updated 01/12/24 @ 18:24 by Luis Cunha MD) Acute dyspnea (Acute) Pleural effusion on left (Acute) Respiratory failure (Acute) Hypoglycemia (Acute) Syncope (Acute) Elevated troponin (Acute) Hepatocellular carcinoma Leg cramps Iron deficiency anemia Type 2 diabetes mellitus with obesity Vitamin D deficiency (Chronic) Proteinuria (Chronic) Former smoker (Chronic) Anemia Thrombocytopenia Leukopenia Steatosis of liver Hypercholesterolemia History of renal cell carcinoma (~2007) Left Kidney 2007 Type 2 diabetes mellitus with retinopathy of both eyes, with long-term current use of insulin Hypertension (Chronic) Absent kidney, acquired (Chronic) MELGAR (nonalcoholic steatohepatitis) Cirrhosis of liver 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 Due to cirrhosis, Vit B12 def, and iron def per records- follows with heme Hyperlipidemia Sleep apnea cpap Surgical History Status post left breast lumpectomy 06/06/22 Dr. Gee Amaro History of esophagogastroduodenoscopy (EGD) Status post right knee replacement History of cataract surgery R/L Status post cystoscopy with ureteral stent placement History of anesthesia reaction "terrible headache from spinal" + with previous colonoscopy>"woke up in middle of procedure and could feel pain" History of lithotripsy History of colonoscopy History of nephrectomy, unilateral left History of tooth extraction all teeth removed History of surgical procedure on eye proper using laser left Family History Father , 67yo Myocardial infarction Stroke Diabetes Mother , 79yo History of kidney cancer Diabetes Sister , 32yo Aspiration into airway Other No family history of adverse response to anesthesia Denies family history of Prostate cancer Breast cancer Colorectal cancer Social History Smoking Status: Former smoker Tobacco Type: Cigarettes Second Hand Exposure: No; Do You Dip or Chew Tobacco: No; Hx Alcohol Use: No Hx Substance Use: No Preferred Language: Kazakh Communication Ability: Effective Visual Impairment: No Limitations Hearing Ability: Normal Plate And Weld Inspector Required: No Beliefs That Will Affect Care: None marital status: Single Current Living Situation: Alone current occupational status: retired 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 [employer] How many Children do You have: 0 Feels Safe at Home: Yes Childhood Exposure to Second-Hand Smoke: No Diet: regular caffeine: No during the past year weight has: remained stable Dental Care, Regularly: No Physical Activity Frequency: Does not Exercise Seatbelt Use: always Sunscreen Use: No Assistive Devices: Cane and Walker Allergies Allergies Allergy/AdvReac Type Severity Reaction Status Date / Time oxycodone AdvReac Mild NAUSEA Verified 01/12/24 14:56 WITH EMESIS Home Meds Home Medications Medication Instructions Recorded Confirmed acetaminophen 500 mg tablet 1,000 mg PO BID PRN Pain 02/03/22 01/12/24 mecobalamin (vitamin B12) 1,000 1,000 mcg PO DAILY 02/03/22 01/12/24 mcg chewable tablet anastrozole 1 mg tablet 1 mg PO QAM 10/05/22 01/12/24 furosemide 20 mg tablet (Lasix) 20 mg PO DAILY 08/29/23 01/12/24 insulin aspar prt-insulin aspart 20 unit subcut BID 11/30/23 01/12/24 100 unit/mL (70-30) subcutaneous soln (Novolog Mix 70-30 U-100 Insuln) diclofenac sodium 1 % topical gel 2 g topical QID PRN Other 01/01/24 01/12/24 (Voltaren Arthritis Pain) ferrous sulfate 324 mg (65 mg 324 mg PO UD 01/01/24 01/12/24 iron) tablet,delayed release potassium chloride 10 mEq 20 meq PO BID 01/01/24 01/12/24 capsule,extended release Previous Rx's Medication Instructions Recorded omeprazole 20 mg tablet,delayed 20 mg PO DAILY #90 tabs 12/30/22 release simvastatin 20 mg tablet 20 mg PO HS #90 tabs 12/30/22 propranolol 20 mg tablet 20 mg PO QAM #30 tabs 04/12/23 ergocalciferol (vitamin D2) 1,250 50,000 unit PO MONTHLY #12 caps 04/18/23 mcg (50,000 unit) capsule blood sugar diagnostic #200 ea 07/04/23 metformin 500 mg tablet 500 mg PO BID #180 tabs 07/04/23 spironolactone 100 mg tablet 100 mg PO DAILY #30 tabs 01/04/24 Results & Data (ED) Vital Signs Vital Signs - 24 hr 01/01/24 15:56 01/01/24 15:56 01/01/24 15:56 Temperature 36.8 C Temperature Source Oral Pulse Rate 69 Pulse Rate [Apical] Respiratory Rate 18 Respiratory Effort / Characteristics Labored Short of Breath Respiratory Depth Shallow Blood Pressure 127/74 Blood Pressure [Right Arm] Blood Pressure Mean 91 Blood Pressure Mean [Right Arm] Pulse Oximetry 98 98 Oxygen Delivery Method Nasal Cannula Nasal Cannula Nasal Cannula Oxygen Flow Rate 2 2 2 Sepsis Recent Fever Within 48 Hours No Sepsis New/Unexplained Change in Mental Status N/A Sepsis Action Taken by Nursing No Action Required 01/01/24 15:56 01/01/24 15:59 01/01/24 16:22 Temperature 36.8 C Temperature Source Oral Pulse Rate 67 70 Pulse Rate [Apical] 66 Respiratory Rate 27 H 26 H Respiratory Effort / Characteristics Respiratory Depth Blood Pressure Blood Pressure [Right Arm] 127/74 Blood Pressure Mean Blood Pressure Mean [Right Arm] 91 Pulse Oximetry 98 99 Oxygen Delivery Method Nasal Cannula Nasal Cannula Oxygen Flow Rate 2 2 Sepsis Recent Fever Within 48 Hours Sepsis New/Unexplained Change in Mental Status Sepsis Action Taken by [facility] Medications Current Medication List: was personally reviewed by me Laboratory Data Attestation: I reviewed the patient's lab results. 01/04/24 06:36 01/04/24 06:36 Lab Results 01/01/24 01/01/24 Range/Units 16:15 18:39 WBC 3.89 L (4.8-10.8) K/ul RBC 2.43 L (4.20-5.40) M/uL Hgb 8.1 L (12.0-16.0) g/dl Hct 24.9 L (37.0-47.0) % MCV 102.5 H (80.0-100.0) fL MCH 33.3 (25.0-34.0) pg MCHC 32.5 (32.0-36.0) g/dL RDW Std Deviation 65.1 H (36.4-46.3) fL RDW Coeff of Stivne 17.7 H (11.5-14.5) % Plt Count 63 L (130-400) K/uL MPV 9.8 (9.4-12.4) fL Immature Gran % (Auto) 0.3 % Neut % (Auto) 74.8 % Lymph % (Auto) 15.2 % Larue % (Auto) 8.7 % Eos % (Auto) 0.5 % Baso % (Auto) 0.5 % Neut # (Auto) 2.91 (1.40-6.50) K/uL Lymph # (Auto) 0.59 L (1.20-3.40) K/uL Larue # (Auto) 0.34 (0.11-0.59) K/uL Eos # (Auto) 0.02 (0.00-0.50) K/uL Baso # (Auto) 0.02 (0.00-0.20) K/uL Immature Gran # (Auto) 0.01 (0.01-0.20) K/uL Sodium 135 L (136-145) mmol/L Potassium 4.9 (3.5-5.1) mmol/L Chloride 102 (98-107) mmol/L Carbon Dioxide 26 (21-32) mmol/L Anion Gap 7 (3-11) BUN 23 (6-23) mg/dl Creatinine 1.12 (0.6-1.2) mg/dl Est Cr Clr Drug Dosing 60.9 ml/min Est GFR ( Amer) 56.8 ml/min Est GFR (Non-Af Amer) 49.0 ml/min BUN/Creatinine Ratio 20.5 H (10-20) Glucose 213 H (70-99(Fasting)) mg/dl Calcium 9.2 (8.6-10.3) mg/dl Total Bilirubin 1.6 H (0.2-1.0) mg/dl AST 25 (13-39) U/L ALT 18 (7-52) U/L Alkaline Phosphatase 123 H (34-104) U/L Total Protein 6.2 (6.0-8.3) gm/dl Albumin 3.2 L (3.4-5.0) gm/dl Globulin 3.0 (2.5-4.0) gm/dl Albumin/Globulin Ratio 1.1 (0.9-2) Adenovirus (PCR) Not Detected (NotDetected) B. pertussis DNA (PCR) Not Detected (NotDetected) B.parapertussis DNA PCR Not Detected (NotDetected) C. pneumoniae DNA (PCR) Not Detected (NotDetected) Coronavirus OC43 (PCR) Not Detected (NotDetected) Coronavirus HKU1 (PCR) Not Detected (NotDetected) Coronavirus 229E (PCR) Not Detected (NotDetected) SARS-CoV-2 (PCR) Not Detected (NotDetected) Coronavirus NL63 (PCR) Not Detected (NotDetected) Human Metapneumovir PCR Not Detected (NotDetected) Influenza Type A (PCR) Not Detected (NotDetected) Influenza Type B (PCR) Not Detected (NotDetected) M. pneumoniae (PCR) Not Detected (NotDetected) Parainfluenza 1 (PCR) Not Detected (NotDetected) Parainfluenza 2 (PCR) Not Detected (NotDetected) Parainfluenza 3 (PCR) Not Detected (NotDetected) Parainfluenza 4 (PCR) Not Detected (NotDetected) RSV (PCR) Not Detected (NotDetected) Entero/Rhino (PCR) Not Detected (NotDetected) Administered Medications Discontinued Medications Anastrozole (Anastrozole 1 Mg Tab) 1 mg PO QAM RADHA Stop: 02/01/24 08:59 Last Admin: 01/04/24 08:23 Dose: 1 mg Documented By: CAROLE Co-signed By: ERNESTO Admin: 01/03/24 08:08 Dose: 1 mg Documented By: PHUONG Co-signed By: ERNESTO Admin: 01/02/24 10:38 Dose: 1 mg Documented By: PHUONG Co-signed By: GERBER Ferrous Sulfate (Ferrous Sulfate 325 Mg Tab) 325 mg PO 1700 RADHA Stop: 02/01/24 16:59 Last Admin: 01/03/24 17:31 Dose: 325 mg Documented By: Admin: 01/02/24 17:13 Dose: 325 mg Documented By: PHUONG Ferrous Sulfate (Ferrous Sulfate 325 Mg Tab) 650 mg PO QAM RADHA Stop: 02/01/24 08:59 Last Admin: 01/04/24 08:22 Dose: 650 mg Documented By: Admin: 01/03/24 08:12 Dose: 650 mg Documented By: Admin: 01/02/24 10:41 Dose: 650 mg Documented By: PHUONG Furosemide (Furosemide 40 Mg/4 Ml Vial) 40 mg IV NOW STA Stop: 01/01/24 17:24 Last Admin: 01/01/24 17:56 Dose: 40 mg Documented By: JONATHAN Furosemide (Furosemide Inj 20 Mg/2 Ml Vial) 20 mg IV BID17 RADHA Stop: 02/01/24 08:59 Last Admin: 01/03/24 08:11 Dose: 20 mg Documented By: Admin: 01/02/24 17:13 Dose: 20 mg Documented By: Admin: 01/02/24 08:10 Dose: 20 mg Documented By: PHUONG Acetaminophen (Ofirmev) 1,000 mg in 100 mls @ 400 mls/hr IV NOW STA Stop: 01/01/24 19:13 Last Infusion: 01/01/24 20:40 Dose: Infused Documented By: Admin: 01/01/24 20:22 Dose: 400 mls/hr Documented By: JONATHAN Magnesium Sulfate/Dextrose (Magnesium Sulfate / D5w) 1 gm in 100 mls @ 50 mls/hr IV Q2H RADHA Stop: 01/02/24 12:29 Last Infusion: 01/02/24 15:22 Dose: Infused Documented By: Admin: 01/02/24 13:08 Dose: 50 mls/hr Documented By: Infusion: 01/02/24 13:08 Dose: Infused Documented By: Infusion: 01/02/24 12:09 Dose: 50 mls/hr Documented By: Infusion: 01/02/24 10:50 Dose: 0 mls/hr Documented By: Admin: 01/02/24 10:35 Dose: 50 mls/hr Documented By: PHUONG Insulin Aspart (Insulin Aspart Per Unit Charge) 0 units SC Q6 RADHA Stop: 01/31/24 19:29 Last Admin: 01/02/24 06:18 Dose: Not Given Documented By: [facility] Admin: 01/02/24 00:27 Dose: Not Given Documented By: [facility] Admin: 01/01/24 22:36 Dose: Not Given Documented By: [facility] Insulin Aspart (Insulin Aspart Per Unit Charge) 0 units SC ACHS RADHA Stop: 02/01/24 11:29 Last Admin: 01/04/24 12:05 Dose: 4 units Documented By: CAROLE Co-signed By: LAMBERTO Admin: 01/04/24 08:29 Dose: 4 units Documented By: CAROLE Co-signed By: ERNESTO Admin: 01/03/24 20:25 Dose: 4 units Documented By: CAROLE(2) Co-signed By: ROSELINE Admin: 01/03/24 17:31 Dose: 7 units Documented By: PHUONG Co-signed By: KELSY Admin: 01/03/24 12:28 Dose: 6 units Documented By: PHUONG Co-signed By: KELSY Admin: 01/03/24 08:07 Dose: 6 units Documented By: PHUONG Co-signed By: ERNESTO Admin: 01/02/24 20:34 Dose: 3 units Documented By: VALERY Co-signed By: MALACHI Admin: 01/02/24 17:12 Dose: 6 units Documented By: PHUONG Co-signed By: DIANA Admin: 01/02/24 12:19 Dose: 6 units Documented By: PHUONG Co-signed By: KELSY Insulin Glargine (Lantus Per Unit Charge) 5 units SQ BID RADHA Stop: 01/31/24 20:59 Last Admin: 01/01/24 22:38 Dose: Not Given Documented By: SANTY Insulin Glargine (Lantus Per Unit Charge) 10 units SQ BID RADHA Stop: 02/02/24 12:14 Last Admin: 01/04/24 08:29 Dose: 10 units Documented By: CAROLE Co-signed By: ERNESTO Admin: 01/03/24 20:26 Dose: 10 units Documented By: CAROLE(2) Co-signed By: ROSELINE Admin: 01/03/24 12:27 Dose: 10 units Documented By: PHUONG Co-signed By: KELSY Ioversol (Optiray 320 125ml) 117 ml IV ONCE ONE Stop: 01/01/24 21:30 Last Admin: 01/01/24 21:29 Dose: 117 ml Documented By: NUNO Lidocaine (Lidocaine 5% 1 Patch) 1 patch TD NOW STA Stop: 01/01/24 19:00 Last Admin: 01/01/24 20:23 Dose: 1 patch Documented By: JONATHAN Miscellaneous (Remove Lidoderm Patch) 1 each N/A DAILY@2100 [facility] Stop: 01/02/24 07:01 Last Admin: 01/02/24 08:02 Dose: 1 each Documented By: PHUONG Pantoprazole Sodium (Pantoprazole 40 Mg Tab) 40 mg PO DAILY RADHA Stop: 02/01/24 08:59 Last Admin: 01/04/24 08:23 Dose: 40 mg Documented By: Admin: 01/03/24 08:11 Dose: 40 mg Documented By: Admin: 01/02/24 10:40 Dose: 40 mg Documented By: PHUONG Propranolol HCl (Propranolol Hcl 20 Mg Tab) 20 mg PO QAM RADHA Stop: 02/01/24 08:59 Last Admin: 01/04/24 08:23 Dose: 20 mg Documented By: Admin: 01/03/24 08:12 Dose: 20 mg Documented By: Admin: 01/02/24 10:39 Dose: 20 mg Documented By: PHUONG Simvastatin (Simvastatin 20 Mg Tab) 20 mg PO HS RADHA Stop: 01/31/24 22:27 Last Admin: 01/03/24 20:25 Dose: 20 mg Documented By: CAROLE(2) Admin: 01/02/24 20:33 Dose: 20 mg Documented By: PIPE CONNECTOR Admin: 01/01/24 22:50 Dose: Not Given Documented By: PIPE CONNECTOR Spironolactone (Spironolactone 100 Mg Tab) 100 mg PO DAILY RADHA Stop: 02/01/24 08:59 Last Admin: 01/04/24 08:23 Dose: 100 mg Documented By: Admin: 01/03/24 08:12 Dose: 100 mg Documented By: Admin: 01/02/24 10:39 Dose: 100 mg Documented By: MP Imaging Data Radiologist's Impression: Chest X-Ray 01/01/24 16:18 XR chest 1V portable HISTORY: 73 years-old Female Dyspnea acute short of breath COMPARISON: 11/01/2023 TECHNIQUE: AP view the chest FINDINGS: Layering moderate to large left pleural effusion with left lung volume loss. Cardiac silhouette is enlarged. No pneumothorax. The right lung is clear. Bones appear grossly intact. IMPRESSION: 1. Cardiomegaly without pulmonary edema. 2. Moderate to large left pleural effusion with left lung volume loss. ACT 112: Negative or not required by law. The above report was generated using voice recognition software. It may contain grammatical, syntax or spelling errors. Electronically signed by: Claude Reese M.D. 01/01/2024 5:02 PM Discharge Plan Visit Data Chief Complaint: Shortness of Breath/Dyspnea Stated Complaint: SOB ED Provider: Luis Cunha Discharge Problem: Pleural effusion on left, Acute dyspnea, Respiratory failure Patient Disposition: Admitted As Inpatient Discharge Instructions Interventions: ED Discharge Assessment Last Done: 01/01/24 20:55 Discharge Problem: Respiratory failure Qualifiers: Chronicity: acute
[2024-01-01] MEDS: FUROSEMIDE 40 MG/4 ML VIAL IV STA (17:56)
--- NOTE | 2024-01-01 19:02 | History & Physical Report ---
Date of Service January 01, 2024 Assessment & Plan (1) Respiratory failure: Plan: Admit to the PCU on telemetry and pulse oximetry Currently stable on BiPAP Presented to the ED in respiratory distress from gastroenterology clinic Noted to have a moderate to large left pleural effusion on chest x-ray Reports that symptoms had been steadily progressing over the past 1 to 2 weeks Will obtain stat VBG, admission as blood gas was not obtained in the ED Will obtain CT of the chest with PE protocol to rule out other sources of her respiratory failure such as PE or possible malignancy as her effusion is largely unilateral If blood gases stable we will consult IR for therapeutic/diagnostic thoracentesis tomorrow, if VBG is concerning or if patient clinically decompensates will have the ED perform urgent thoracentesis tonight Incentive spirometry, as needed O2 to keep SpO2 at or above 92% Was given 40 mg IV Lasix in the ED, will continue with 20 mg IV twice daily 17 moving forward for now N.p.o. while on BiPAP Patient will lower legs wait to order DVT prophylaxis until CTA of the chest results are back, if negative for PE will order bilateral SCD AM CBC, CMP, mag, PT/INR (2) Cirrhosis of liver: Plan: Patient has known history of Melgar cirrhosis with hepatocellular carcinoma Is without signs of decompensation at this time as LFTs are within normal limits and patient without signs of encephalopathy Volume overload is likely due to her cirrhosis Continue home spironolactone Will continue IV Lasix for now for ongoing diuresis until patient receives th oracentesis Will obtain CT of the abdomen pelvis with IV contrast for assessment of ascites and known hepatocellular carcinoma (3) Type 2 diabetes mellitus with obesity: Plan: Monitor BSG every 6 hours while NPO, goal is [id number] Start CF of 50 and CR 15 every 6 hours for now Will start 5 units Lantus twice daily for now Adjust regimen as needed (4) Thrombocytopenia: Plan: Currently stable at 63,000 No signs of bleeding Monitor daily CBC (5) Sleep apnea: Plan: At bedtime CPAP ordered once patient is stable and not requiring acute BiPAP Plan The patient was discussed with Dr. Cid at the time of the admission History of Present Illness Chief Complaint: Respiratory distress Primary Care Provider: Soco Lopez MD Rufus is a 73F w/ PMH of iron deficiency anemia, T2DM w/ CKD3, Vit D deficiency, HLD, liver steatosis/MELGAR/cirrhosis, renal cell carcinoma (2007, s/p resection), HTN, DCIS of L Breast (2022) who presented to the [facility] ED on 01/01/2024 via EMS from the gastroenterology clinic due to respiratory distress. She was placed on BiPAP at the time of arrival due to her respiratory distress but was otherwise stable. Labs were significant for platelet count of 63 (stable since 12/07/2023), total bili 1.6 and alk phos of 123 with AST and ALT within normal limits, and full respiratory BioFire process. Chest x-ray was read as cardiomegaly without pulmonary edema and moderate to large left pleural effusion with left lung volume loss. The patient was ordered 40 mg IV Lasix prior to admission. Patient was sitting in bed in no acute distress, currently breathing comfortably on BiPAP with her niece sitting bedside, history is obtained from both. The patient explains that she has been experiencing progressive shortness of breath over the past 2 weeks. States that she was being seen in the GI clinic for routine follow-up due to her history of Melgar cirrhosis. They were concerned due to her work of breathing which is why she was sent to the ED for further evaluation. She states that she has been compliant with her home diuretics, sodium restriction, and fluid restriction. Does use at bedtime CPAP and reports compliance. When asked, she confirms that she has a previous history of paracentesis July of this year and had approximately 2 L of fluid removed at that time. Denies history of requiring thoracentesis. Confirms that she currently is breathing comfortably on BiPAP but would like to take BiPAP mask off whenever possible. Confirms that she is a full code and would want her niece to make medical decisions for her if she cannot make them herself. Please refer to Dr. Cid's attestation for any changes to treatment plan Allergies Allergy/AdvReac Type Severity Reaction Status Date / Time oxycodone AdvReac Mild NAUSEA Verified 11/30/23 11:09 WITH EMESIS Home Medications Medication Instructions Recorded Confirmed Type acetaminophen 500 mg tablet 1,000 mg PO BID PRN Pain 02/03/22 01/01/24 History mecobalamin (vitamin B12) 1,000 1,000 mcg PO DAILY 02/03/22 01/01/24 History mcg chewable tablet anastrozole 1 mg tablet 1 mg PO QAM 10/05/22 01/01/24 History omeprazole 20 mg tablet,delayed 20 mg PO DAILY #90 tabs 12/30/22 01/01/24 Rx release simvastatin 20 mg tablet 20 mg PO HS #90 tabs 12/30/22 01/01/24 Rx propranolol 20 mg tablet 20 mg PO QAM #30 tabs 04/12/23 01/01/24 Rx ergocalciferol (vitamin D2) 1,250 50,000 unit PO MONTHLY #12 caps 04/18/23 01/01/24 Rx mcg (50,000 unit) capsule blood sugar diagnostic #200 ea 07/04/23 11/30/23 Rx metformin 500 mg tablet 500 mg PO BID #180 tabs 07/04/23 01/01/24 Rx furosemide 20 mg tablet (Lasix) 20 mg PO DAILY 08/29/23 01/01/24 History spironolactone 50 mg tablet 50 mg PO DAILY 08/29/23 01/01/24 History insulin aspar prt-insulin aspart 20 unit subcut BID 11/30/23 01/01/24 History 100 unit/mL (70-30) subcutaneous soln (Novolog Mix 70-30 U-100 Insuln) diclofenac sodium 1 % topical gel 2 g topical QID PRN Other 01/01/24 01/01/24 History (Voltaren Arthritis Pain) ferrous sulfate 324 mg (65 mg 324 mg PO UD 01/01/24 01/01/24 History iron) tablet,delayed release potassium chloride 10 mEq 20 meq PO BID 01/01/24 01/01/24 History capsule,extended release Past Med/Surg History Problem List (Updated 01/01/24 @ 19:25 by Tima Tracey PA-C) Respiratory failure Hypoglycemia (Acute) Syncope (Acute) Elevated troponin (Acute) Hepatocellular carcinoma Leg cramps Iron deficiency anemia Type 2 diabetes mellitus with obesity Vitamin D deficiency (Chronic) Proteinuria (Chronic) Former smoker (Chronic) Anemia Thrombocytopenia Leukopenia Steatosis of liver Hypercholesterolemia History of renal cell carcinoma (~2007) Left Kidney 2007 Type 2 diabetes mellitus with retinopathy of both eyes, with long-term current use of insulin Hypertension (Chronic) Absent kidney, acquired (Chronic) MELGAR (nonalcoholic steatohepatitis) Cirrhosis of liver 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) Vitamin D deficiency (Chronic) Chronic kidney disease, stage 3 (Chronic) monitoring Medical History Elevated troponin Fall at home Hypoglycemia associated with type 2 diabetes mellitus History of kidney stones Breast cancer, left breast Thrombocytopenia Hyperlipidemia Sleep apnea Surgical History Status post left breast lumpectomy History of esophagogastroduodenoscopy (EGD) Status post right knee replacement History of cataract surgery Status post cystoscopy with ureteral stent placement History of anesthesia reaction History of lithotripsy History of colonoscopy History of nephrectomy, unilateral History of tooth extraction History of surgical procedure on eye proper using laser Family History Father Myocardial infarction Stroke Diabetes Mother History of kidney cancer Diabetes Sister Aspiration into airway Other No family history of adverse response to anesthesia Denies family history of Prostate cancer Breast cancer Colorectal cancer Social History Smoking Status: Never smoker Tobacco Type: Cigarettes Second Hand Exposure: No; Do You Dip or Chew Tobacco: No; Hx Alcohol Use: No Hx Substance Use: No Preferred Language: Malay Communication Ability: Effective Visual Impairment: No Limitations Hearing Ability: Normal Automatic Glove Turner And Former Required: No Beliefs That Will Affect Care: None marital status: Single Current Living Situation: Alone current occupational status: retired 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 [employer] How many Children do You have: 0 Feels Safe at Home: Yes Childhood Exposure to Second-Hand Smoke: No Diet: regular caffeine: No during the past year weight has: remained stable Dental Care, Regularly: No Physical Activity Frequency: Does not Exercise Seatbelt Use: always Sunscreen Use: No Assistive Devices: Cane and CPAP Physical Exam Physical Exam: Physical Exam: General: In no acute distress, stated age, chronically ill-appearing but nontoxic HEENT: Normocephalic, atraumatic, no scleral icterus, pupils around round, symmetrical, and reactive to light, BiPAP mask currently in place without signs of air leak, no thyromegaly Chest/Pulm: No respiratory distress, symmetrical chest expansion, decreased breath sounds in the left lower/mid lobe and right lower lobe but otherwise CTA Cardiac: RRR, no murmurs noted Abdomen: moderate abdominal ascites, no signs of bruising or bleeding, total to percussion throughout, normoactive bowel sounds, mildly firm non-tender to palpation throughout Musculoskeletal: Symmetrical and without signs of acute trauma, upper and lower extremities with full ROM, no atrophy, spasticity, or flaccidity Extremities: Radial, dorsalis pedis, and posterior tibial pulses are intact and symmetrical, no edema noted in the BL LE's Skin: Warm, dry, no rashes , lesions, or scars noted Neuro: Alert and oriented to person, place, month, year, and president, no focal defects, CN II-XII tested and intact, no tremors noted Psych: No acute distress, calm and cooperative during the exam Results & Data Results & Data Vital Signs (Past 12 Hours) Vital Signs Temp Pulse Pulse Resp BP BP Pulse Ox 01/01/24 18:01 68 23 113/63 96 01/01/24 17:32 69 26 H 97 01/01/24 16:22 70 26 H 99 01/01/24 15:59 67 01/01/24 15:56 36.8 C 66 27 H 127/74 98 01/01/24 15:56 98 01/01/24 15:56 01/01/24 15:56 36.8 C 69 18 127/74 98 O2 Del Method O2 Flow Rate FiO2 01/01/24 18:01 BiPAP 01/01/24 17:32 24 01/01/24 16:22 Nasal Cannula 2 01/01/24 15:59 01/01/24 15:56 Nasal Cannula 2 01/01/24 15:56 Nasal Cannula 2 01/01/24 15:56 Nasal Cannula 2 01/01/24 15:56 Nasal Cannula 2 Laboratory Results Abnormal lab results 01/01/24 Range/Units 16:15 WBC 3.89 L (4.8-10.8) K/ul RBC 2.43 L (4.20-5.40) M/uL Hgb 8.1 L (12.0-16.0) g/dl Hct 24.9 L (37.0-47.0) % MCV 102.5 H (80.0-100.0) fL RDW Std Deviation 65.1 H (36.4-46.3) fL RDW Coeff of Stiven 17.7 H (11.5-14.5) % Plt Count 63 L (130-400) K/uL Lymph # (Auto) 0.59 L (1.20-3.40) K/uL Sodium 135 L (136-145) mmol/L BUN/Creatinine Ratio 20.5 H (10-20) Glucose 213 H (70-99(Fasting)) mg/dl Total Bilirubin 1.6 H (0.2-1.0) mg/dl Alkaline Phosphatase 123 H (34-104) U/L Albumin 3.2 L (3.4-5.0) gm/dl Diagnostic Findings Chest X-Ray 01/01/24 16:18 XR chest 1V portable HISTORY: 73 years-old Female Dyspnea acute short of breath COMPARISON: 11/01/2023 TECHNIQUE: AP view the chest FINDINGS: Layering moderate to large left pleural effusion with left lung volume loss. Cardiac silhouette is enlarged. No pneumothorax. The right lung is clear. Bones appear grossly intact. IMPRESSION: 1. Cardiomegaly without pulmonary edema. 2. Moderate to large left pleural effusion with left lung volume loss. ACT 112: Negative or not required by law. The above report was generated using voice recognition software. It may contain grammatical, syntax or spelling errors. Electronically signed by: Claude Reese M.D. 01/01/2024 5:02 PM ECG Additional Comments: Will obtain at the time of the admission Code Status & VTE Plan Code Status Full code VTE Prophylaxis Plan VTE Prophylaxis will be ordered: Yes Supervising Physician Co-Signing Physician Notes Patient seen and examined, chart reviewed, case discussed with Tima Tracey PA-C and I agree with the assessment and plan as above except as otherwise noted Labs and images reviewed 73yo F with MELGAR and HCC, RCC s/p resection, DCIS L Breast who presents with worsening dyspnea. She has been compliant with her lasix, spirolactone, and sodium restriction. Was referred to ER due to concerns for her work of breathing. CXR shows large L pleural effusion. PT/INR and VBG ordered on admitting assessment. No evidence of acute hepatic decompensation. Significant abdominal ascites is present without pain. CT-A/P ordered, she was pending this for re-eval later this week as outpatient. Pleural effusion is large and one sided and pt has extensive hx of maliganancy --> CT-Chest with IV contrast pending. Lasix is pending. Breathing is stable and pt is comfortable at bedside. IR consulted for both paracentesis and diagnostic/therapeutic thoracentesis. She is not on an antiplatelet or anticoagulant. At bedside reassessment she is kirsty athing comfortably on room air, sats 94%, VBG reviewed and is without significant acidosis. Patient does endorse some salt indiscretion at home, and generally likes some salted foods such as fries. Agree w/ above PG Care Time/CCT Total # of Minutes Spent Total Time Spent with Patient: Total time spent is greater than 50% in coordination of care (as documented) at patient's floor/unit and/or counseling patient: Coding [place] [address] INT INP/OBS CARE 3/75MIN Patient Type Established Medical Decision Making High Complexity Diagnoses Respiratory failure J96.90 Cirrhosis of liver K74.60 Type 2 diabetes mellitus with obesity E11.69; E66.9 Thrombocytopenia D69.6 Sleep apnea G47.30
[2024-01-01] MEDS ORDERED: CARBOHYDRATES FOR HYPOGLYCEMIA PO PRN (19:25)
[2024-01-01] MEDS ORDERED: DEXTROSE 50% 50 ML SYRINGE IV PRN (19:25)
[2024-01-01] MEDS ORDERED: GLUCOSE 10 TAB/TUBE PO PRN (19:25)
[2024-01-01] MEDS ORDERED: GLUCAGON FOR INJ 1 MG VIAL SQ PRN (19:25)
[2024-01-01] MEDS ORDERED: GLUCOSE 40% GEL 15 GM TUBE PO PRN (19:25)
[2024-01-01 19:38] LABS: Adenovirus PCR Not Detected (NotDetected); Bordetella parapertussis PCR Not Detected (NotDetected); Bordetella pertussis PCR Not Detected (NotDetected); Chlamydia pneumoniae PCR Not Detected (NotDetected); Coronavirus 229E PCR Not Detected (NotDetected); Coronavirus CoV-2 (COVID19)PCR Not Detected (NotDetected); Coronavirus HKU1 PCR Not Detected (NotDetected); Coronavirus NL63 PCR Not Detected (NotDetected); Coronavirus OC43PCR Not Detected (NotDetected); Human Metapneumovirus PCR Not Detected (NotDetected); Influenza A PCR Not Detected (NotDetected); Influenza B PCR Not Detected (NotDetected); Mycoplasma pneumoniae PCR Not Detected (NotDetected); Parainfluenza Virus 1 PCR Not Detected (NotDetected); Parainfluenza Virus 2 PCR Not Detected (NotDetected); Parainfluenza Virus 3 PCR Not Detected (NotDetected); Parainfluenza Virus 4 PCR Not Detected (NotDetected); Respiratory Syncytial VirusPCR Not Detected (NotDetected); Rhinovirus/Enterovirus PCR Not Detected (NotDetected)
[2024-01-01 20:02] LABS: Base Excess VBG 1.2 mEq/L; HCO3 VBG 27 mmol/L; Oxygen Saturation VBG < 60.0 %; PCO2 VBG 44 mmHg (38-50); PO2 VBG < 20 mmHg; pH VBG 7.39 (7.36-7.41)
[2024-01-01] MEDS: ACETAMINOPHEN 1,000 MG/100 ML VIAL IV STA (20:22)
[2024-01-01] MEDS: LIDOCAINE 5% 1 PATCH TD STA (20:23)
[2024-01-01 20:49] LABS: INR 1.2 (0.9-1.1)
[2024-01-01] MEDS: OPTIRAY 320 125ml IV ONE (21:29)
[2024-01-01 21:40] LABS: Appearance Urine Clear (Clear); Bacteria Urine Automated None Seen (None Seen); Bilirubin Urine Negative (Negative); Blood Urine Negative (Negative); Cast Urine Automated 0-2 /lpf (0-2); Color Urine Yellow; Epithelial Cell Urine Auto 0-2 /hpf (0-2); Glucose Urine UA Negative (Negative); Ketones Urine Negative (Negative); Leukocyte Esterase Urine Trace (Negative); Nitrite Urine Negative (Negative); Protein Urine Negative (Negative); RBC Urine Automated 0-2 /hpf (0-2); Specific Gravity Urine 1.008 (1.000-1.030); Urobilinogen Urine Negative (Negative); WBC Urine Automated 0-5 /hpf (0-5)
[2024-01-01] MEDS: INSULIN ASPART PER UNIT CHARGE SC SCH (22:36)
[2024-01-01] MEDS: LANTUS PER UNIT CHARGE SQ SCH (22:38)
[2024-01-01] MEDS: SIMVASTATIN 20 MG TAB PO SCH (22:50)
--- NOTE | 2024-01-02 00:06 | CT Scan Report ---
Exam(s): CTA CHEST IV Amt: 117 ml opti 320 EXAM: CT Angiography Chest With Intravenous Contrast CLINICAL HISTORY: Reason for exam: PE. TECHNIQUE: Axial computed tomographic angiography images of the chest with intravenous contrast. CTDI is 28.14 mGy and DLP is 2360.3 mGy-cm. Automated exposure control was utilized for the study. A dose lowering technique was utilized adhering to the principles of ALARA. MIP reconstructed images were created and reviewed. COMPARISON: No relevant prior studies available. FINDINGS: Pulmonary arteries: Unremarkable. No pulmonary embolism. Aorta: Atherosclerotic changes of the aorta. No thoracic aortic aneurysm. Lungs: See below. Pleural space: Large LEFT pleural effusion with subjacent airspace consolidation, likely atelectasis. Superimposed pneumonia not excluded. Heart: Cardiomegaly. No significant pericardial effusion. No evidence of RV dysfunction. Bones/joints: Degenerative changes of the spine. No acute fracture. No dislocation. Soft tissues: Unremarkable. Lymph nodes: Unremarkable. No enlarged lymph nodes. Liver: Hepatic cirrhosis. Abdominal ascites. IMPRESSION: 1. No pulmonary embolism. 2. Large LEFT pleural effusion with subjacent airspace consolidation, likely atelectasis. Superimposed pneumonia not excluded. 3. Hepatic cirrhosis. Abdominal ascites. Electronically signed by: Franky Daniel MD 01/02/24 00:05 AM
--- NOTE | 2024-01-02 00:22 | CT Scan Report ---
Exam(s): CT ABDOMEN + PELVIS With Contrast IV Amt: 117 ml opti 320 EXAM: CT Abdomen and Pelvis With Intravenous Contrast CLINICAL HISTORY: Reason for exam: cirrhosis, ascites. TECHNIQUE: Axial computed tomography images of the abdomen and pelvis with intravenous contrast. CTDI is 28.14 mGy and DLP is 2360.3 mGy-cm. Automated exposure control was utilized for the study. A dose lowering technique was utilized adhering to the principles of ALARA. CONTRAST: Patient received 117 ml opti 320 of IV contrast COMPARISON: Abdominal MRI June 08, 2023. FINDINGS: Lung bases: Unremarkable. No mass. No consolidation. ABDOMEN: Liver: Hepatic cirrhosis. Abdominal ascites. Gallbladder and bile ducts: Cholelithiasis. No ductal dilation. Pancreas: Unremarkable. No mass. No ductal dilation. Spleen: Unremarkable. No splenomegaly. Adrenals: Unremarkable. No mass. Kidneys and ureters: Absent LEFT kidney, correlate for nephrectomy. RIGHT upper pole renal cyst measures 2.9 cm. Stomach and bowel: Diverticulosis, without acute diverticulitis. No small bowel obstruction. No free intraperitoneal air. PELVIS: Appendix: No findings to suggest acute appendicitis. Bladder: Unremarkable. No mass. Reproductive: Unremarkable as visualized. ABDOMEN and PELVIS: Intraperitoneal space: See above. Bones/joints: Degenerative changes of the spine. No acute fracture. No dislocation. Soft tissues: Unremarkable. Vasculature: Atherosclerotic changes of the aorta. No abdominal aortic aneurysm. Lymph nodes: Unremarkable. No enlarged lymph nodes. IMPRESSION: 1. Hepatic cirrhosis. Abdominal ascites. 2. Cholelithiasis. 3. Absent LEFT kidney, correlate for nephrectomy. 4. Diverticulosis, without acute diverticulitis. No small bowel obstruction. No free intraperitoneal air. Electronically signed by: Franky Daniel MD 01/02/24 00:21 AM
[2024-01-02 07:14] LABS: Basophils # (auto) 0.02 K/uL (0.00-0.20); Basophils % (auto) 0.6 %; Eosinophils # (auto) 0.03 K/uL (0.00-0.50); Eosinophils % (auto) 0.9 %; Hematocrit (blood only) 23.2 % (37.0-47.0); Hemoglobin 7.8 g/dl (12.0-16.0); Lymphocytes % (auto) 20.6 %; Mean Corpuscular Hemoglobin 33.9 pg (25.0-34.0); Mean Corpuscular Hgb Conc 33.6 g/dL (32.0-36.0); Mean Corpuscular Volume 100.9 fL (80.0-100.0); Mean Platelet Volume 9.5 fL (9.4-12.4); Monocytes # (auto) 0.39 K/uL (0.11-0.59); Monocytes % (auto) 11.5 %; Neutrophils # (auto) 2.25 K/uL (1.40-6.50); Neutrophils % (auto) 66.4 %; Platelet Count 53 K/uL (130-400); RDW Coefficient of Variation 17.9 % (11.5-14.5); RDW Standard Deviation 65.2 fL (36.4-46.3); White Blood Count 3.39 K/ul (4.8-10.8)
[2024-01-02 07:35] LABS: RBC Morphology Unremarkable
[2024-01-02 07:48] LABS: Albumin Globulin Ratio 1.1 (0.9-2); Albumin Level 3.1 gm/dl (3.4-5.0); BUN Creatinine Ratio 18.8 (10-20); Bilirubin,Total 1.7 mg/dl (0.2-1.0); Calcium 9.1 mg/dl (8.6-10.3); Creatinine Clr Calc Pharmacy 58.9 ml/min; Est GFR (African American) 53.9 ml/min; Est GFR (Non-African American) 46.5 ml/min; Globulin 2.8 gm/dl (2.5-4.0); Magnesium 1.4 mg/dl (1.7-2.4); Potassium 4.5 mmol/L (3.5-5.1); Total Protein 5.9 gm/dl (6.0-8.3)
[2024-01-02 07:51] LABS: INR 1.3 (0.9-1.1); Prothrombin Time 13.4 Seconds (9.0-12.0)
[2024-01-02] MEDS: FUROSEMIDE INJ 20 MG/2 ML VIAL IV SCH (08:10)
[2024-01-02] MEDS ORDERED: SPIRONOLACTONE 25 MG TAB PO SCH (09:00)
--- NOTE | 2024-01-02 09:10 | Electrocardiogram Report ---
Test Reason : Blood Pressure : */* mmHG Vent. Rate : 65 BPM Atrial Rate : * BPM P-R Int : * ms QRS Dur : 84 ms QT Int : 402 ms P-R-T Axes : * 39 -8 degrees QTcB Int : 418 ms Probable Sinus rhythm Low voltage QRS Diffuse Minor Nonspecific T wave abnormality Abnormal ECG When compared with ECG of 01-Nov-2023 15:58, HR has decreased by 21 bpm Otherwise no significant change Confirmed by Jewel Peterson ([id number]) on 01/02/2024 9:10:32 AM Referred By: REFERRED SELF Confirmed By: Jewel Peterson
--- NOTE | 2024-01-02 09:41 | XRay Report ---
XR chest 1V not portable HISTORY: s/p left thora with stat read COMPARISON: Chest 01/01/2024. FINDINGS: Slight decrease in size in the moderate left pleural effusion status post thoracentesis. Th e heart remains mildly enlarged. No pneumothorax. No right pleural effusion. No acute fractures. The right lung is clear. IMPRESSION: Slight decrease in size in the moderate left pleural effusion status post thoracentesis. No pneumotho rax. ACT 112: Negative or not required by law. Electronically signed by: Simon Deal M.D. 01/02/2024 9:40 AM
[2024-01-02] MEDS: MAGNESIUM SULFATE / D5W 1 GM/100 ML BAG IV SCH (10:35)
[2024-01-02] MEDS: ANASTROZOLE 1 MG TAB PO SCH (10:38)
[2024-01-02] MEDS: PROPRANOLOL HCL 20 MG TAB PO SCH (10:39)
[2024-01-02] MEDS: SPIRONOLACTONE 100 MG TAB PO SCH (10:39)
[2024-01-02] MEDS: PANTOprazole 40 MG TAB PO SCH (10:40)
[2024-01-02] MEDS: FERROUS SULFATE 325 MG TAB PO SCH ×2 (10:41→17:13)
[2024-01-02] MEDS: INSULIN ASPART PER UNIT CHARGE SC SCH (12:19)
[2024-01-02 12:53] LABS: Appearance Pleural Fluid Hazy; Color Pleural Fluid Pale Yellow; RBC Pleural Fluid Auto 4000 /uL; Source Pleural Fluid Other; WBC Pleural Fluid Auto 161 /uL
[2024-01-02 12:54] LABS: Appearance Peritoneal Fluid Slightly Hazy; Color Peritoneal Fluid Pale Yellow; RBC Peritoneal Fluid Auto 2000 /uL; WBC Peritoneal Fluid Auto 148 /ul (0-300)
[2024-01-02 13:00] LABS: Albumin Peritoneal Fluid < 1.5 gm/dl; Glucose Peritoneal Fluid 158 mg/dl; Glucose Pleural Fluid 158 mg/dl; LDH Peritoneal Fluid 42 U/L; LDH Pleural Fluid 47 U/L; Lipase Peritoneal Fluid 11 U/L; Total Protein Peritoneal Fluid < 3.0 gm/dl; Total Protein Pleural Fluid < 3.0 gm/dl
[2024-01-02 13:22] LABS: Eosinophils, Fluid 2 %; Lymphocytes, Fluid 37 %; Mono,Macrophage,Mesothelial 51 %; Neutrophils, Fluid 10 %
[2024-01-02 13:25] LABS: Lymphocytes, Fluid 48 %; Mono,Macrophage,Mesothelial 47 %; Neutrophils, Fluid 5 %
--- NOTE | 2024-01-02 14:09 | Ultrasound Report ---
Ultrasound guided paracentesis. Clinical indication: ascites. Procedure: Procedure and risks were explained. Informed consent was obtained from the patient. A fin al timeout was completed. Sonographic examination revealed a moderate amount of ascites. A pocket wa s identified in the left lower quadrant. The abdomen was prepped and draped in sterile fashion. 1% li docaine was utilized for skin anesthesia. Utilizing ultrasound guidance, a 5 [place] safety centesis c atheter was introduced into the pocket of ascites and 4000 ml of yellow fluid drained with 1 L sent t o the lab. Ultrasound images were obtained. The catheter was removed and Band-Aid applied. The patie nt tolerated the procedure well. Vital signs will be monitored prior to discharge. IMPRESSION: Ultrasound guided paracentesis as described above. Performed, dictated, and signed by Dallas Chandler PA-C; to be co-signed by Dr. Simon Deal. Electronically signed by: Simon Deal M.D. 01/02/2024 2:10 PM
--- NOTE | 2024-01-02 14:10 | Ultrasound Report ---
Ultrasound guided left thoracentesis. Clinical indication: Left pleural effusion. Procedure: Procedure and risks were explained. Informed consent was obtained from the patient. A fin al timeout was completed. The left posterior thorax was prepped and draped in sterile fashion. 1% lid ocaine was utilized for skin anesthesia. Utilizing ultrasound guidance, a 5 Malay safety [employer] Youngesis ca theter was introduced into the left pleural effusion and 1500 ml of minerva fluid drained and sent the lab. Ultrasound images were obtained. The catheter was removed and Band-Aid applied. The patient shanae erated the procedure well. A chest x-ray will be obtained postprocedure. Vital signs will be monitore d prior to discharge. IMPRESSION: Ultrasound guided thoracentesis as described above. Performed, dictated, and signed by Dallas Chandler PA-C; to be co-signed by Dr. Simon Deal. Electronically signed by: Simon Deal M.D. 01/02/2024 2:10 PM
--- NOTE | 2024-01-02 17:57 | Hospitalist Progress Note ---
Date of Service January 02, 2024 Assessment & Plan (1) Respiratory failure: Plan: Admit to the PCU on telemetry and pulse oximetry Currently stable on BiPAP Presented to the ED in respiratory distress from gastroenterology clinic Noted to have a moderate to large left pleural effusion on chest x-ray Reports that symptoms had been steadily progressing over the past 1 to 2 weeks Patient had a thoracocenthesis, and paracenthesis. -Patient is now on room air. -Fluid was examined and this did not show evidence of spontaneous bacterial peritonitis. -fluid was transudative byy lights criteria. Incentive spirometry, as needed O2 to keep SpO2 at or above 92% (2) Cirrhosis of liver: Plan: Patient has known history of Melgar cirrhosis with hepatocellular carcinoma Is without signs of decompensation at this time as LFTs are within normal limits and patient without signs of encephalopathy Volume overload is likely due to her cirrhosis Continue home spironolactone Will obtain CT of the abdomen pelvis with IV contrast for assessment of ascites and known hepatocellular carcinoma (3) Type 2 diabetes mellitus with obesity: Plan: Monitor BSG every 6 hours while NPO, goal is [id number] Start CF of 50 and CR 15 every 6 hours for now Will start 5 units Lantus twice daily for now Adjust regimen as needed (4) Thrombocytopenia: Plan: Currently stable at 63,000 No signs of bleeding Monitor daily CBC (5) Sleep apnea: Plan: At bedtime CPAP ordered once patient is stable and not requiring acute BiPAP Admission and Anticipated Discharge Date Admission Date: January 01, 2024 Subjective Patient reports breathing better,. Review of Systems Review of Systems: All systems reviewed & are unremarkable except as noted in HPI & below Physical Exam Physical Exam: General: In no acute distress, stated age, chronically ill-appearing but nontoxic HEENT: Normocephalic, atraumatic Chest/Pulm: No respiratory distress, symmetrical chest expansion clear. Cardiac: RRR, no murmurs noted Abdomen: soft, NT, ND Musculoskeletal: Symmetrical and without signs of acute trauma, upper and lower extremities with full ROM, no atrophy, spasticity, or flaccidity Extremities: Radial, dorsalis pedis, and posterior tibial pulses are intact and symmetrical, no edema noted in the BL LE's Skin: Warm, dry, no rashes , lesions, or scars noted Neuro: Alert and oriented to person, place, month, year, and president, no focal defects, CN II-XII tested and intact, no tremors noted Psych: No acute distress, calm and cooperative during the exam Results & Data Results & Data Vital Signs (Past 12 Hours) Vital Signs Temp Pulse Pulse Resp BP BP Pulse Ox 01/02/24 15:04 36.7 C 76 18 100/64 92 01/02/24 13:34 36.9 C 79 18 119/67 91 01/02/24 13:04 36.9 C 75 18 108/70 92 01/02/24 12:04 36.5 C 83 18 105/57 L 93 01/02/24 09:56 36.4 C L 84 20 140/73 91 01/02/24 08:00 01/02/24 08:00 78 23 93 01/02/24 07:38 36.4 C L 93 H 19 103/65 95 O2 Del Method FiO2 01/02/24 15:04 Room Air 01/02/24 13:34 Room Air 01/02/24 13:04 Room Air 01/02/24 12:04 Room Air 01/02/24 09:56 Room Air 01/02/24 08:00 BiPAP 25 01/02/24 08:00 25 01/02/24 07:38 BiPAP PG Care Time/CCT Total # of Minutes Spent Total Time Spent with Patient: Total time spent is greater than 50% in coordination of care (as documented) at patient's floor/unit and/or counseling patient: Coding Level of Care Code 03343 SUB INP/OBS CARE 3/50MIN Diagnoses Respiratory failure J96.90 Cirrhosis of liver K74.60 Type 2 diabetes mellitus with obesity E11.69; E66.9 Thrombocytopenia D69.6 Sleep apnea G47.30
[2024-01-03 06:17] LABS: Basophils # (auto) 0.02 K/uL (0.00-0.20); Basophils % (auto) 0.5 %; Eosinophils # (auto) 0.03 K/uL (0.00-0.50); Eosinophils % (auto) 0.7 %; Hematocrit (blood only) 26.2 % (37.0-47.0); Hemoglobin 8.3 g/dl (12.0-16.0); Immature Granulocytes # (auto) 0.01 K/uL (0.01-0.20); Immature Granulocytes % (auto) 0.2 %; Lymphocytes # (auto) 0.66 K/uL (1.20-3.40); Lymphocytes % (auto) 16.5 %; Mean Corpuscular Hemoglobin 32.5 pg (25.0-34.0); Mean Corpuscular Hgb Conc 31.7 g/dL (32.0-36.0); Mean Corpuscular Volume 102.7 fL (80.0-100.0); Mean Platelet Volume 9.6 fL (9.4-12.4); Monocytes # (auto) 0.45 K/uL (0.11-0.59); Monocytes % (auto) 11.2 %; Neutrophils # (auto) 2.84 K/uL (1.40-6.50); Neutrophils % (auto) 70.9 %; Platelet Count 56 K/uL (130-400); RDW Coefficient of Variation 17.9 % (11.5-14.5); RDW Standard Deviation 66.5 fL (36.4-46.3); Red Blood Count 2.55 M/uL (4.20-5.40); White Blood Count 4.01 K/ul (4.8-10.8)
[2024-01-03 06:32] LABS: Albumin Globulin Ratio 1.1 (0.9-2); Albumin Level 2.9 gm/dl (3.4-5.0); Bilirubin,Total 1.8 mg/dl (0.2-1.0); Calcium 8.8 mg/dl (8.6-10.3); Est GFR (African American) 40.9 ml/min; Est GFR (Non-African American) 35.3 ml/min; Globulin 2.7 gm/dl (2.5-4.0); Magnesium 1.8 mg/dl (1.7-2.4); Potassium 4.9 mmol/L (3.5-5.1); Total Protein 5.6 gm/dl (6.0-8.3)
[2024-01-03 06:41] LABS: INR 1.2 (0.9-1.1); Prothrombin Time 13.1 Seconds (9.0-12.0)
[2024-01-03] MEDS ORDERED: PHARMACY GLYCEMIC MGMT CONSULT PRN (11:57)
[2024-01-03] MEDS: LANTUS PER UNIT CHARGE SQ SCH (12:27)
--- NOTE | 2024-01-03 13:06 | Pharmacy Report ---
Pharmacy Glycemic Short Note 2 - Date of Service January 03, 2024 - Glycemic Short BSG Results (Last 24 hours): 01/02/24 01/02/24 01/03/24 16:06 20:13 05:50 Glucose 174 H POC Glucose 282 H 277 H 01/03/24 01/03/24 01/03/24 07:25 11:42 11:53 Glucose POC Glucose 212 H 411 H* 236 H 01/03/24 11:58 Glucose POC Glucose 244 H OUTPATIENT ANTIDIABETIC REGIMEN: * Novolog Mix 70/30: 20 units SC BID * Metformin 500 mg PO BID * HbA1c: 5.2% (11/02/23) ASSESSMENT: * 73 yo F admitted on 01/01/24 secondary to respiratory distress. Pharmacy has been consulted to assist with inpatient glycemic management. Patient is a Type 2 diabetic as an outpatient. Please refer to outpatient regimen and most recent HbA1c above. * Yesterday, patient's BSGs were: [phone] mg/dL. No basal insulin was given but patient did receive 15 units of bolus insulin. Ordered and tolerating a T2DM diet. * Fasting BSG elevated at 212 mg/dL. Patient received 6 units of Novolog this morning. Pharmacy was consulted at lunchtime when original BSG came back at 411 mg/dL. However, repeat BSGs approximately 10 minutes later were 236 and 244 mg/dL. Will give 10 units of basal now and continue BID. Will tighten Novolog as well to reflect weight/stress of 1-2. Will tighten upper end of goal range from 160 to 140 as well. PLAN FOR INPATIENT GLYCEMIC CONTROL: * Hold outpatient oral diabetes medications * Basal insulin * Lantus 10 units SC BID * Bolus insulin * NovoLog per scale ACHS or Q6hrs while NPO * Goal Range: Low 110 mg/dL - High 140 mg/dL * Correction Factor: 25 mg/dL/unit * Nutritional / Prandial insulin per carb ratio of 1 unit per 8 grams CHO consumed
--- NOTE | 2024-01-03 22:30 | Hospitalist Progress Note ---
Date of Service January 03, 2024 Assessment & Plan (1) Respiratory failure: Plan: Admit to the PCU on telemetry and pulse oximetry Currently stable on BiPAP Presented to the ED in respiratory distress from gastroenterology clinic Noted to have a moderate to large left pleural effusion on chest x-ray Reports that symptoms had been steadily progressing over the past 1 to 2 weeks Patient had a thoracocenthesis, and paracenthesis. -Patient is now on room air. -Fluid was examined and this did not show evidence of spontaneous bacterial peritonitis. -fluid was transudative by lights criteria. Incentive spirometry, as needed O2 to keep SpO2 at or above 92% (2) Cirrhosis of liver: Plan: Patient has known history of Melgar cirrhosis with hepatocellular carcinoma Is without signs of decompensation at this time as LFTs are within normal limits and patient without signs of encephalopathy Volume overload is likely due to her cirrhosis Continue home spironolactone Will obtain CT of the abdomen pelvis with IV contrast for assessment of ascites and known hepatocellular carcinoma (3) Type 2 diabetes mellitus with obesity: Plan: Monitor BSG every 6 hours while NPO, goal is [id number] Start CF of 50 and CR 15 every 6 hours for now Will start 5 units Lantus twice daily for now Adjust regimen as needed (4) Thrombocytopenia: Plan: Currently stable at 63,000 No signs of bleeding Monitor daily CBC (5) Sleep apnea: Plan: At bedtime CPAP ordered once patient is stable and not requiring acute BiPAP Admission and Anticipated Discharge Date Admission Date: January 01, 2024 Subjective Patient reports no new symptoms. She does not feel well enough for discharge. Review of Systems Review of Systems: All systems reviewed & are unremarkable except as noted in HPI & below Physical Exam Physical Exam: General: In no acute distress, stated age, chronically ill-appearing but nontoxic HEENT: Normocephalic, atraumatic Chest/Pulm: No respiratory distress, symmetrical chest expansion clear. Cardiac: RRR, no murmurs noted Abdomen: soft, NT, ND Musculoskeletal: Symmetrical and without signs of acute trauma, upper and lower extremities with full ROM, no atrophy, spasticity, or flaccidity Extremities: Radial, dorsalis pedis, and posterior tibial pulses are intact and symmetrical, no edema noted in the BL LE's Skin: Warm, dry, no rashes , lesions, or scars noted Neuro: Alert and oriented to person, place, month, year, and president, no focal defects, CN II-XII tested and intact, no tremors noted Psych: No acute distress, calm and cooperative during the exam Results & Data Results & Data Vital Signs (Past 12 Hours) Vital Signs Temp Pulse Resp BP Pulse Ox O2 Del Method O2 Del Method 01/03/24 22:00 Nasal Cannula 01/03/24 19:30 Room Air 01/03/24 18:58 36.7 C 73 16 106/65 92 Room Air 01/03/24 15:59 36.7 C 71 18 97/57 L 92 Room Air 01/03/24 12:13 36.7 C 74 18 94/60 L 93 Room Air PG Care Time/CCT Total # of Minutes Spent Total Time Spent with Patient: Total time spent is greater than 50% in coordination of care (as documented) at patient's floor/unit and/or counseling patient: Coding Level of Care Code 21271 SUB INP/OBS CARE 2/35MIN Diagnoses Respiratory failure J96.90 Cirrhosis of liver K74.60 Type 2 diabetes mellitus with obesity E11.69; E66.9 Thrombocytopenia D69.6 Sleep apnea G47.30
[2024-01-04 07:03] LABS: Basophils # (auto) 0.01 K/uL (0.00-0.20); Basophils % (auto) 0.3 %; Eosinophils # (auto) 0.04 K/uL (0.00-0.50); Eosinophils % (auto) 1.2 %; Hematocrit (blood only) 22.5 % (37.0-47.0); Hemoglobin 7.7 g/dl (12.0-16.0); Lymphocytes # (auto) 0.62 K/uL (1.20-3.40); Lymphocytes % (auto) 19.1 %; Mean Corpuscular Hemoglobin 34.2 pg (25.0-34.0); Mean Corpuscular Hgb Conc 34.2 g/dL (32.0-36.0); Mean Platelet Volume 9.3 fL (9.4-12.4); Monocytes # (auto) 0.32 K/uL (0.11-0.59); Monocytes % (auto) 9.8 %; Neutrophils # (auto) 2.26 K/uL (1.40-6.50); Neutrophils % (auto) 69.6 %; Platelet Count 51 K/uL (130-400); RDW Coefficient of Variation 17.8 % (11.5-14.5); RDW Standard Deviation 64.2 fL (36.4-46.3); Red Blood Count 2.25 M/uL (4.20-5.40); White Blood Count 3.25 K/ul (4.8-10.8)
[2024-01-04 07:19] LABS: Albumin Level 2.7 gm/dl (3.4-5.0); BUN Creatinine Ratio 17.8 (10-20); Bilirubin,Total 1.8 mg/dl (0.2-1.0); Calcium 8.4 mg/dl (8.6-10.3); Creatinine Clr Calc Pharmacy 44.4 ml/min; Est GFR (African American) 41.2 ml/min; Est GFR (Non-African American) 35.6 ml/min; Globulin 2.6 gm/dl (2.5-4.0); Magnesium 1.8 mg/dl (1.7-2.4); Polychromasia 1+; Potassium 4.5 mmol/L (3.5-5.1); Total Protein 5.3 gm/dl (6.0-8.3)
[2024-01-04 07:31] LABS: INR 1.3 (0.9-1.1); Prothrombin Time 13.4 Seconds (9.0-12.0)
[2024-01-04 12:38] VITALS: PULSE 73; RESP 18; TEMP 97.5; O2SAT 94
[2024-01-04 12:41] VITALS: BP 108/70
--- NOTE | 2024-01-05 21:59 | Discharge Summary ---
Discharge Summary Date of Service January 04, 2024 Principal Dx & Hospital Course #1 = Principal Diagnosis (1) Respiratory failure: Admit to the PCU on telemetry and pulse oximetry Currently stable on BiPAP Presented to the ED in respiratory distress from gastroenterology clinic Noted to have a moderate to large left pleural effusion on chest x-ray Reports that symptoms had been steadily progressing over the past 1 to 2 weeks Patient had a thoracocenthesis, and paracenthesis. -Patient is now on room air. -Fluid was examined and this did not show evidence of spontaneous bacterial peritonitis. -fluid was transudative by lights criteria. Patient is back to room air. (2) Cirrhosis of liver: Patient has known history of Melgar cirrhosis with hepatocellular carcinoma Is without signs of decompensation at this time as LFTs are within normal limits and patient without signs of encephalopathy Volume overload is likely due to her cirrhosis Continue home spironolactone CT abd/pelvis completed. (3) Type 2 diabetes mellitus with obesity: resume home meds (4) Thrombocytopenia: Currently stable at 63,000 No signs of bleeding (5) Sleep apnea: At bedtime CPAP ordered once patient is stable and not requiring acute BiPAP Acute kidney failure secondary to cirrhosis will limit lasix to 20 mg PO daily and increase spironolactone to 100 mg. Will defer to PCP. Admission HPI Per Admitting Provider Rufus is a 73F w/ PMH of iron deficiency anemia, T2DM w/ CKD3, Vit D deficiency, HLD, liver steatosis/MELGAR/cirrhosis, renal cell carcinoma (2007, s/p resection), HTN, DCIS of L Breast (2022) who presented to the [facility] ED on 01/01/2024 via EMS from the gastroenterology clinic due to respiratory distress. She was placed on BiPAP at the time of arrival due to her respiratory distress but was otherwise stable. Labs were significant for platelet count of 63 (stable since 12/07/2023), total bili 1.6 and alk phos of 123 with AST and ALT within normal limits, and full respiratory BioFire process. Chest x-ray was read as cardiomegaly without pulmonary edema and moderate to large left pleural effusion with left lung volume loss. The patient was ordered 40 mg IV Lasix prior to admission. Patient was sitting in bed in no acute distress, currently breathing comfortably on BiPAP with her niece sitting bedside, history is obtained from both. The patient explains that she has been experiencing progressive shortness of breath over the past 2 weeks. States that she was being seen in the GI clinic for routine follow-up due to her history of Melgar cirrhosis. They were concerned due to her work of breathing which is why she was sent to the ED for further evaluation. She states that she has been compliant with her home diuretics, sodium restriction, and fluid restriction. Does use at bedtime CPAP and reports compliance. When asked, she confirms that she has a previous history of paracentesis July of this year and had approximately 2 L of fluid removed at that time. Denies history of requiring thoracentesis. Confirms that she currently is breathing comfortably on BiPAP but would like to take BiPAP mask off whenever possible. Confirms that she is a full code and would want her niece to make medical decisions for her if she cannot make them herself. Please refer to Dr. Cid's attestation for any changes to treatment plan Discharge Exam General: In no acute distress, stated age, chronically ill-appearing but nontoxic HEENT: Normocephalic, atraumatic Chest/Pulm: No respiratory distress, symmetrical chest expansion clear. Cardiac: RRR, no murmurs noted Abdomen: soft, NT, ND Musculoskeletal: Symmetrical and without signs of acute trauma, upper and lower extremities with full ROM, no atrophy, spasticity, or flaccidity Extremities: Radial, dorsalis pedis, and posterior tibial pulses are intact and symmetrical, no edema noted in the BL LE's Skin: Warm, dry, no rashes , lesions, or scars noted Neuro: Alert and oriented to person, place, month, year, and president, no focal defects, CN II-XII tested and intact, no tremors noted Psych: No acute distress, calm and cooperative during the exam Discharge Plan Discharge Items Patient Disposition: Home - Home Health Services Reason For Visit: REPIRATORY FAILURE, LEFT PLEURAL EFFUSION Discharge Diagnosis: left pleural effusion Activity: Resume your previous activity Non-emergency contact: Primary Care Provider Call non-emergency contact if: you have any medication questions Follow-up/Referrals: Soco Lopez MD [Primary Care Provider] - 01/12/24 3:00 pm (Hospital follow up scheduled January 11 at 3:00 with Estella Florian at the [facility] location.) Diet: Carb Consistent or DM2, Heart Healthy and Low Sodium (2gm) Fluids: 1500ml (6 cups) Addtl Attending Provider Instructions: Good afternoon Mrs. Thompson, You came in with shortness of breath. Thankfully you improved after 4 liters of fluid were removed by from you abdomen and 1.5 liters were removed from your chest. You have been stable since. Increased Spironolactone to 100 mg once daily. Recommend followup with PCP in 1-2 weeks. It was a pleasure. Pending Studies at Discharge: No Stand-Alone Forms[facility] Medications and DC Order Prescriptions: Continued omeprazole 20 mg tablet,delayed release (DR/EC) 20 mg PO DAILY Qty: 90 3RF simvastatin 20 mg tablet 20 mg PO HS Qty: 90 3RF ergocalciferol (vitamin D2) 1,250 mcg (50,000 unit) capsule 50,000 unit PO MONTHLY Qty: 12 0RF metformin 500 mg tablet 500 mg PO BID Qty: 180 3RF (DME) blood sugar diagnostic Strip See Rx Instructions .Route Qty: 200 3RF Rx Instructions: ONE TOUCH ULTRA TEST STRIPS- Check BS BID DX E11.319 / Z79.4 furosemide [Lasix] 20 mg tablet 20 mg PO DAILY mecobalamin (vitamin B12) 1,000 mcg tablet,chewable 1,000 mcg PO DAILY acetaminophen 500 mg tablet 1,000 mg PO BID PRN (Reason: Pain) propranolol 20 mg tablet 20 mg PO QAM Qty: 30 0RF insulin asp prt-insulin aspart [Novolog Mix 70-30 U-100 Insuln] 100 unit/mL (70-30) solution 20 unit subcut BID anastrozole 1 mg Tablet 1 mg PO QAM potassium chloride 10 mEq capsule, extended release 20 meq PO BID ferrous sulfate 324 mg (65 mg iron) tablet,delayed release (DR/EC) 324 mg PO UD Rx Instructions: 648mg (324mg x 2) po qam and 324 mg (1 tab) po pm diclofenac sodium [Voltaren Arthritis Pain] 1 % gel 2 g topical QID PRN (Reason: Other) Rx Instructions: apply to right shoulder Changed spironolactone 100 mg tablet 100 mg PO DAILY Qty: 30 0RF Discharge Orders: Discharge Order (Routine); Ordered 01/04/24 Ordered By: Danyel Benson Admission Data Admit Date/Time: 01/01/24 18:57 Attending Provider: Danyel Benson Admit Provider: Jensen Cid Primary Care Provider: Soco Lopez Other Providers: Jensen Cid; [facility] Fax Other Interventions: Discharge Summary Assessment (RN) Last Done: 01/04/24 12:39 Hospital Stay Data Consultations 01/01/24 18:03 ED Decision to Admit Stat Diagnostic Imagining Performed 01/01/24 18:58 CT Abd and Pelvis [CT abd pelvis IV con only] Urgent CT angio chest PE protocol Stat 01/02/24 08:13 IR thoracentesis wo tube US Stat 01/02/24 08:19 IR paracentesis abd w/img US Routine EXAM: CT Abdomen and Pelvis With Intravenous Contrast CLINICAL HISTORY: Reason for exam: cirrhosis, ascites. TECHNIQUE: Axial computed tomography images of the abdomen and pelvis with intravenous contrast. CTDI is 28.14 mGy and DLP is 2360.3 mGy-cm. Automated exposure control was utilized for the study. A dose lowering technique was utilized adhering to the principles of ALARA. CONTRAST: Patient received 117 ml opti 320 of IV contrast COMPARISON: Abdominal MRI June 08, 2023. FINDINGS: Lung bases: Unremarkable. No mass. No consolidation. ABDOMEN: Liver: Hepatic cirrhosis. Abdominal ascites. Gallbladder and bile ducts: Cholelithiasis. No ductal dilation. Pancreas: Unremarkable. No mass. No ductal dilation. Spleen: Unremarkable. No splenomegaly. Adrenals: Unremarkable. No mass. Kidneys and ureters: Absent LEFT kidney, correlate for nephrectomy. RIGHT upper pole renal cyst measures 2.9 cm. Stomach and bowel: Diverticulosis, without acute diverticulitis. No small bowel obstruction. No free intraperitoneal air. PELVIS: Appendix: No findings to suggest acute appendicitis. Bladder: Unremarkable. No mass. Reproductive: Unremarkable as visualized. ABDOMEN and PELVIS: Intraperitoneal space: See above. Bones/joints: Degenerative changes of the spine. No acute fracture. No dislocation. Soft tissues: Unremarkable. Vasculature: Atherosclerotic changes of the aorta. No abdominal aortic aneurysm. Lymph nodes: Unremarkable. No enlarged lymph nodes. IMPRESSION: 1. Hepatic cirrhosis. Abdominal ascites. 2. Cholelithiasis. 3. Absent LEFT kidney, correlate for nephrectomy. 4. Diverticulosis, without acute diverticulitis. No small bowel obstruction. No free intraperitoneal air. Pending Results Patient Have Any Pending Studies at Discharge: No Discharge Instructions Given to Patient (Per Discharging Provider) Good afternoon Mrs. Thompson, You came in with shortness of breath. Thankfully you improved after 4 liters of fluid were removed by from you abdomen and 1.5 liters were removed from your chest. You have been stable since. Increased Spironolactone to 100 mg once daily. Recommend followup with PCP in 1-2 weeks. It was a pleasure. Total Time Total Time Spent Total Time Spent (In Minutes): 32 Coding Level of Care Code 68008 INP/OBS DISCH >30 MIN Diagnoses Respiratory failure J96.90 Cirrhosis of liver K74.60 Type 2 diabetes mellitus with obesity E11.69; E66.9 Thrombocytopenia D69.6 Sleep apnea G47.30
--- NOTE | 2024-01-09 08:12 | Coding Query ---
CODING QUERY To promote full compliance with coding requirements relating to patient care, provider participation is requested in all cases of outpatient coder uncertainty. Please assist us with the question(s) below: Clinical Indicators: History and Physical: * experiencing progressive shortness of breath over the past 2 weeks * Cirrhosis of liver * Patient has known history of Melgar cirrhosis with hepatocellular carcinoma * Is without signs of decompensation at this time as LFTs are within normal limits and patient without signs of encephalopathy * Volume overload is likely due to her cirrhosis * Continue home spironolactone * Will continue IV Lasix for now for ongoing diuresis until patient receives thoracentesis CTA of Chest: * Hepatic cirrhosis. Abdominal ascites * Large LEFT pleural effusion with subjacent airspace consolidation, likely atelectasis. Superimposed pneumonia not excluded Paracentesis 01/02/2024: * 4000 ml of yellow fluid drained * Pathology: No tumor seen. Red blood cells, mesothelial cells, lymphocytes and a few histiocytes are all seen. Thoracentesis 01/02/2024: * 1500 ml of minerva fluid drained and sent the lab * Pathology: No tumor seen. Mesothelial cells, red blood cells, histiocytes and a few scattered lymphocytes are all seen. Coding Question(s): Based on the above clinical indicators, are you able to further specify the etiology of the pleural effusion? ( ) Unspecified Cirrhosis of liver ( X) Nonalcoholic steatohepatitis (X ) Hepatocellular carcinoma ( ) Other (please specify): ( ) Unable to determine Thank you Meeta Singh Principal Diagnosis: "that condition established after study, to be chiefly responsible for occasioning the admission of the patient to the hospital for care." Co-Existing Principal Diagnosis: "when two or more diagnoses equally meet the criteria for principal diagnosis as determined by the circumstances of admission, diagnostic work up, and/or therapy provided, and the Alphabetic Index, Tabular List, or another coding guideline does not provide sequencing direction, any one of the diagnoses may be sequenced first." "When the physician has documented what appears to be a current diagnosis in the body of the record, but has not included the diagnosis in the final diagnostic statement, the physician should be asked whether the diagnosis should be added." (Source Coding [facility] 2 QTR90. p3-4) OLESYA
== END 2024-01-04 14:37 | disposition home health service (06) | DRG 441 ==
LOC: ED 15:43 → SUATTDRO 18:57 → 2S 18:57

== ENCOUNTER 2024-02-01 08:38 | Inpatient (IN) ==
--- NOTE | 2024-02-01 08:53 | Emergency Department Note ---
Impression & Plan Acute hyperkalemia ADMIT ED Provider Note HPI: History obtained from patient. The patient is a 73-year-old female with history of renal cell carcinoma, Melgar cirrhosis with hepatocellular carcinoma, chronic kidney disease stage III, type 2 diabetes, breast cancer, presents the emergency department with concern for abnormal kidney function on recent outpatient labs. Patient states she received a phone call this morning stating that her "kidney numbers were off" and that she should come to the hospital to be assessed. Patient denies any physical complaints. Patient does note that she had a scheduled outpatient paracentesis done yesterday. On arrival here to the ED the patient is otherwise hemodynamically stable, she appears to be in no acute distress. Patient denies any abdominal pain, denies any chest pain or shortness of breath. ROS: - Per HPI Differential Diagnosis: Acute renal failure, hyperkalemia, dehydration/volume depletion secondary to paracentesis, sepsis, SBP, amongst other potential pathologies. *Outpatient medications and allergy history reviewed. PE: General: Alert HEENT: Normocephalic, trachea midline Eyes: Extraocular eye movement is intact, no scleral erythema Pulmonary: Clear to auscultation bilaterally, no wheezing Cardio: Regular rate and rhythm GI: Abdomen is soft to palpation, nondistended : No suprapubic tenderness MSK: No evidence of trauma or malformation of the extremities, no edema Skin: No evidence of rash Neuro: Alert, no focal deficits Psychiatric: Cooperative INDEPENDENT INTERPRETATIONS: equipment monitor phototypesetting: (As interpreted by myself): - An order was placed for continuous cardiac monitoring - Patient was noted to be in sinus rhythm with a rate of 85 EKG: (As interpreted by myself): Rate: 85 Rhythm: Apparent sinus rhythm Intervals: Within normal limits ST changes: No ST elevation, no evidence of peaked T waves Time: 0846 Interventions provided in ED: -IV calcium gluconate, IV sodium bicarb, albuterol, IV insulin, IV dextrose, [place] Medical Decision Making: IV was established and lab work obtained, patient was placed on cardiac care nurse. Lab work shows no leukocytosis, hemoglobin is stable at 9.5 which appears to be near the patient's baseline, platelet count is reduced at 56 which is also near the patient's baseline. CMP shows critically high potassium is 6.8, patient is otherwise stable without widened QRS or peaked T waves on EKG. Creatinine is elevated at 3.9 (patient's baseline is approximately 1.4). Patient's abdomen is otherwise soft and nontender, she denies any physical complaints. Low suspicion for sepsis or SBP given recent paracentesis. Patient was given IV albumin for her hypertension here in the ED with good improvement. She was given the above medications for hyperkalemia. I discussed the patient's presentation with the on-call hospitalist, Dr. Oliveros, and the patient was placed for admission in stable condition for further care. Consultants/Discussions held with other healthcare providers: -Hospitalist, Dr. Oliveros Disposition discussion held by myself with: -Patient * CRITICAL CARE TIME: ( 38 ) minutes -Management of critical hyperkalemia requiring IV medications, oral medications, and nebulizer treatments for stabilization and correction, interpretation of diagnostic studies including EKG, time spent at the bedside, discussion with other healthcare providers and arrangement of admission. Diagnosis: 1. Hypokalemia, acute 2. Acute on chronic renal failure 3. Elevated BUN 4. Anemia, chronic, stable Disposition: Admission Cabrera Noland DO Emergency Medicine Past Med/Surg History Problem List (Updated 02/01/24 @ 14:40 by Cabrera Noland DO) Acute hyperkalemia (Acute) Hyperkalemia Acute kidney injury superimposed on chronic kidney disease Acute dyspnea (Acute) Pleural effusion on left (Acute) Respiratory failure (Acute) Hypoglycemia (Acute) Syncope (Acute) Elevated troponin (Acute) Hepatocellular carcinoma Leg cramps Iron deficiency anemia Type 2 diabetes mellitus with obesity Vitamin D deficiency (Chronic) Proteinuria (Chronic) Former smoker (Chronic) Anemia Thrombocytopenia Leukopenia Steatosis of liver Hypercholesterolemia History of renal cell carcinoma (~2007) Left Kidney 2007 Type 2 diabetes mellitus with retinopathy of both eyes, with long-term current use of insulin Hypertension (Chronic) Absent kidney, acquired (Chronic) MELGAR (nonalcoholic steatohepatitis) Cirrhosis of liver 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 Due to cirrhosis, Vit B12 def, and iron def per records- follows with heme Hyperlipidemia Sleep apnea cpap Surgical History Status post left breast lumpectomy 06/06/22 Dr. Gee Amaro History of esophagogastroduodenoscopy (EGD) Status post right knee replacement History of cataract surgery R/L Status post cystoscopy with ureteral stent placement History of anesthesia reaction "terrible headache from spinal" + with previous colonoscopy>"woke up in middle of procedure and could feel pain" History of lithotripsy History of colonoscopy History of nephrectomy, unilateral left History of tooth extraction all teeth removed History of surgical procedure on eye proper using laser left Family History Father , 67yo Myocardial infarction Stroke Diabetes Mother , 79yo History of kidney cancer Diabetes Sister , 32yo Aspiration into airway Other No family history of adverse response to anesthesia Denies family history of Prostate cancer Breast cancer Colorectal cancer Social History Smoking Status: Never smoker Tobacco Type: Cigarettes Second Hand Exposure: No; Do You Dip or Chew Tobacco: No; Hx Alcohol Use: No Hx Substance Use: No Preferred Language: Nauruan Communication Ability: Effective Visual Impairment: No Limitations Hearing Ability: Normal 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 Required: No Beliefs That Will Affect Care: None marital status: Single Current Living Situation: Alone current occupational status: retired 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 [employer] How many Children do You have: 0 Feels Safe at Home: Yes Childhood Exposure to Second-Hand Smoke: No Diet: regular caffeine: No during the past year weight has: remained stable Dental Care, Regularly: No Physical Activity Frequency: Does not Exercise Seatbelt Use: always Sunscreen Use: No Assistive Devices: Cane and Walker Allergies Allergies Allergy/AdvReac Type Severity Reaction Status Date / Time oxycodone AdvReac Mild NAUSEA Verified 01/12/24 14:56 WITH EMESIS Home Meds Home Medications Medication Instructions Recorded Confirmed acetaminophen 500 mg tablet 1,000 mg PO BID PRN Pain 02/03/22 01/12/24 mecobalamin (vitamin B12) 1,000 1,000 mcg PO DAILY 10/20/22 09/27/24 mcg chewable tablet anastrozole 1 mg tablet 1 mg PO QAM 10/05/22 01/12/24 furosemide 20 mg tablet (Lasix) 20 mg PO DAILY 08/29/23 01/12/24 insulin aspar prt-insulin aspart 20 unit subcut BID 11/30/23 01/12/24 100 unit/mL (70-30) subcutaneous soln (Novolog Mix 70-30 U-100 Insuln) diclofenac sodium 1 % topical gel 2 g topical QID PRN Other 01/01/24 01/12/24 (Voltaren Arthritis Pain) ferrous sulfate 324 mg (65 mg 324 mg PO UD 01/01/24 01/12/24 iron) tablet,delayed release potassium chloride 10 mEq 20 meq PO BID 01/01/24 01/12/24 capsule,extended release Previous Rx's Medication Instructions Recorded propranolol 20 mg tablet 20 mg PO QAM #30 tabs 04/12/23 ergocalciferol (vitamin D2) 1,250 50,000 unit PO MONTHLY #12 caps 04/18/23 mcg (50,000 unit) capsule blood sugar diagnostic #200 ea 07/04/23 metformin 500 mg tablet 500 mg PO BID #180 tabs 07/04/23 spironolactone 100 mg tablet 100 mg PO DAILY #30 tabs 01/04/24 omeprazole 20 mg tablet,delayed 20 mg PO DAILY #90 tabs 01/29/24 release simvastatin 20 mg tablet 20 mg PO HS #90 tabs 01/29/24 Results & Data (ED) Vital Signs Vital Signs - 24 hr 02/01/24 08:49 02/01/24 08:53 02/01/24 09:05 Temperature 36.7 C Temperature Source Oral Pulse Rate 86 84 Pulse Rate [Apical] 86 Pulse Rate from SpO2 Sensor Respiratory Rate 22 22 Respiratory Effort / Characteristics Non-Labored Spontaneous Non-Labored Spontaneous Respiratory Depth Normal Normal Blood Pressure 119/63 Blood Pressure [Right Arm] 119/63 Blood Pressure Mean 81 Blood Pressure Mean [Right Arm] 81 Blood Pressure Position Sitting Blood Pressure Position [Right Arm] Sitting Pulse Oximetry 95 95 Oxygen Delivery Method Room Air Room Air Sepsis Recent Fever Within 48 Hours No Sepsis New/Unexplained Change in Mental Status No Sepsis Action Taken by Nursing No Action Required 02/01/24 10:11 02/01/24 10:21 02/01/24 11:00 Temperature Temperature Source Pulse Rate 81 Pulse Rate [Apical] 83 83 Pulse Rate from SpO2 Sensor 82 Respiratory Rate 20 22 29 H Respiratory Effort / Characteristics Non-Labored Spontaneous Non-Labored Spontaneous Respiratory Depth Normal Normal Blood Pressure 107/56 L Blood Pressure [Right Arm] 85/48 L 98/55 L Blood Pressure Mean 73 Blood Pressure Mean [Right Arm] 60 69 Blood Pressure Position Blood Pressure Position [Right Arm] Sitting Sitting Pulse Oximetry 96 96 100 Oxygen Delivery Method Room Air Room Air Sepsis Recent Fever Within 48 Hours Sepsis New/Unexplained Change in Mental Status Sepsis Action Taken by Nursing 02/01/24 11:06 02/01/24 11:51 02/01/24 12:09 Temperature Temperature Source Pulse Rate 82 83 Pulse Rate [Apical] 87 Pulse Rate from SpO2 Sensor 82 83 Respiratory Rate 20 28 H 22 Respiratory Effort / Characteristics Non-Labored Spontaneous Respiratory Depth Normal Blood Pressure 100/59 L Blood Pressure [Right Arm] 106/77 Blood Pressure Mean 72 Blood Pressure Mean [Right Arm] 86 Blood Pressure Position Blood Pressure Position [Right Arm] Sitting Pulse Oximetry 100 95 95 Oxygen Delivery Method Room Air Sepsis Recent Fever Within 48 Hours Sepsis New/Unexplained Change in Mental Status Sepsis Action Taken by Nursing 02/01/24 14:09 Temperature Temperature Source Pulse Rate Pulse Rate [Apical] 83 Pulse Rate from SpO2 Sensor Respiratory Rate 22 Respiratory Effort / Characteristics Respiratory Depth Blood Pressure Blood Pressure [Right Arm] 95/49 L Blood Pressure Mean Blood Pressure Mean [Right Arm] 64 Blood Pressure Position Blood Pressure Position [Right Arm] Pulse Oximetry 95 Oxygen Delivery Method Room Air Sepsis Recent Fever Within 48 Hours Sepsis New/Unexplained Change in Mental Status Sepsis Action Taken by Nursing Laboratory Data 02/01/24 08:48 02/01/24 08:48 Lab Results 02/01/24 02/01/24 Range/Units 08:48 10:36 WBC 8.36 (4.8-10.8) K/ul RBC 2.81 L (4.20-5.40) M/uL Hgb 9.5 L (12.0-16.0) g/dl Hct 30.1 L (37.0-47.0) % MCV 107.1 H (80.0-100.0) fL MCH 33.8 (25.0-34.0) pg MCHC 31.6 L (32.0-36.0) g/dL RDW Std Deviation 77.0 H (36.4-46.3) fL RDW Coeff of Stiven 19.4 H (11.5-14.5) % Plt Count 56 L (130-400) K/uL MPV 10.3 (9.4-12.4) fL Immature Gran % (Auto) 0.6 % Neut % (Auto) 76.6 % Lymph % (Auto) 11.4 % [place] % (Auto) 10.9 % Eos % (Auto) 0.4 % Baso % (Auto) 0.1 % Neut # (Auto) 6.41 (1.40-6.50) K/uL Lymph # (Auto) 0.95 L (1.20-3.40) K/uL [place] # (Auto) 0.91 H (0.11-0.59) K/uL Eos # (Auto) 0.03 (0.00-0.50) K/uL Baso # (Auto) 0.01 (0.00-0.20) K/uL Immature Gran # (Auto) 0.05 (0.01-0.20) K/uL Sodium 134 L (136-145) mmol/L Potassium 6.8 H* (3.5-5.1) mmol/L Chloride 105 (98-107) mmol/L Carbon Dioxide 21 (21-32) mmol/L Anion Gap 8 (3-11) BUN 42 H (6-23) mg/dl Creatinine 3.91 H D (0.6-1.2) mg/dl Est Cr Clr Drug Dosing 16.6 ml/min eGFR 11.65 BUN/Creatinine Ratio 10.7 (10-20) Glucose 155 H (70-99(Fasting)) mg/dl POC Glucose 177 H (70-99) mg/dl Calcium 8.9 (8.6-10.3) mg/dl Total Bilirubin 2.1 H (0.2-1.0) mg/dl AST 24 (13-39) U/L ALT 23 (7-52) U/L Alkaline Phosphatase 124 H (34-104) U/L Total Protein 5.9 L (6.0-8.3) gm/dl Albumin 3.1 L (3.4-5.0) gm/dl Globulin 2.8 (2.5-4.0) gm/dl Albumin/Globulin Ratio 1.1 (0.9-2) Lipase 28 (11-82) U/L Administered Medications Discontinued Medications Albuterol (Albuterol 0.5% Neb Soln 2.5 Mg/0.5 Ml Vial) 2.5 mg NEB NOW STA; Protocol Stop: 02/01/24 10:15 Last Admin: 02/01/24 10:43 Dose: 2.5 mg Documented By: MIKO Dextrose (Dextrose 50% 50 Ml Syringe) 50 ml IV NOW STA Stop: 02/01/24 09:31 Last Admin: 02/01/24 09:51 Dose: 50 ml Documented By: MIKO Calcium Gluconate () 1,000 mg in 60 mls @ 240 mls/hr IV NOW STA Stop: 02/01/24 09:44 Last Infusion: 02/01/24 10:09 Dose: Infused Documented By: Admin: 02/01/24 09:49 Dose: 240 mls/hr Documented By: MIKO Insulin Human Regular 10 units (/ Syringe) 9.9 mls @ 3 mls/sec IV ONE STA Stop: 02/01/24 09:31 Last Admin: 02/01/24 10:00 Dose: 3 mls/sec Documented By: MIKO Co-signed By: Albumin Human (Albumin 5%) 250 mls @ 500 mls/hr IV ONE ONE Stop: 02/01/24 10:42 Last Infusion: 02/01/24 11:25 Dose: Infused Documented By: Admin: 02/01/24 10:30 Dose: 500 mls/hr Documented By: ALIE Patiromer (Patiromer Calcium Sorbitex 8.4 Gm Pack) 8.4 gm PO NOW STA Stop: 02/01/24 09:31 Last Admin: 02/01/24 10:18 Dose: 8.4 gm Documented By: MIKO Sodium Bicarbonate (Sodium Bicarb 8.4% Inj 50 Meq/50 Ml Syr) 50 meq IV NOW STA Stop: 02/01/24 10:14 Last Admin: 02/01/24 10:30 Dose: 50 meq Documented By: ALIE Imaging Data Radiologist's Impression: Renal Ultrasound 02/01/24 12:08 RENAL ULTRASOUND HISTORY: SHIREEN, one kidney, r/o obstructive process COMPARISON: CT abdomen and pelvis 01/01/2024 FINDINGS: Right kidney: 11.0 cm. 2.9 x 2.2 x 2.0 cm cyst of the superior pole right kidney is stable from prior CT study. No hydronephrosis. Normal corticomedullary differentiation and cortical thickness. Left kidney: Surgically absent. Bladder: Decompressed and not well seen. Cirrhotic liver with ascites. IMPRESSION: 1. Unremarkable sonographic appearance of the right kidney. No hydronephrosis. 2. Absent left kidney. 3. Cirrhosis with ascites redemonstrated. ACT 112: Negative or not required by law. Electronically signed by: Claude Reese M.D. 02/01/2024 1:51 PM Discharge Plan Visit Data Chief Complaint: Abnormal Labs/Diagnostic Testing Stated Complaint: ABNORMAL LABS ED Provider: Carbera Noland Discharge Problem: Acute hyperkalemia Forms Stand Alone Forms: [facility] [place] Prescriptions Prescriptions: No Action ergocalciferol (vitamin D2) 1,250 mcg (50,000 unit) capsule 50,000 unit PO MONTHLY Qty: 12 0RF metformin 500 mg tablet 500 mg PO BID Qty: 180 3RF (DME) blood sugar diagnostic Strip See Rx Instructions .Route Qty: 200 3RF Rx Instructions: ONE TOUCH ULTRA TEST STRIPS- Check BS BID DX E11.319 / Z79.4 furosemide [Lasix] 20 mg tablet 20 mg PO DAILY omeprazole 20 mg tablet,delayed release (DR/EC) 20 mg PO DAILY Qty: 90 3RF simvastatin 20 mg tablet 20 mg PO HS Qty: 90 3RF mecobalamin (vitamin B12) 1,000 mcg tablet,chewable 1,000 mcg PO DAILY acetaminophen 500 mg tablet 1,000 mg PO BID PRN (Reason: Pain) propranolol 20 mg tablet 20 mg PO QAM Qty: 30 0RF insulin asp prt-insulin aspart [Novolog Mix 70-30 U-100 Insuln] 100 unit/mL (70-30) solution 20 unit subcut BID anastrozole 1 mg Tablet 1 mg PO QAM potassium chloride 10 mEq capsule, extended release 20 meq PO BID ferrous sulfate 324 mg (65 mg iron) tablet,delayed release (DR/EC) 324 mg PO UD Rx Instructions: 648mg (324mg x 2) po qam and 324 mg (1 tab) po pm diclofenac sodium [Voltaren Arthritis Pain] 1 % gel 2 g topical QID PRN (Reason: Other) Rx Instructions: apply to right shoulder spironolactone 100 mg tablet 100 mg PO DAILY Qty: 30 0RF Referrals Referrals: Soco Lopez MD [Primary Care Provider] -
[2024-02-01 09:32] LABS: Albumin Globulin Ratio 1.1 (0.9-2); Albumin Level 3.1 gm/dl (3.4-5.0); BUN Creatinine Ratio 10.7 (10-20); Bilirubin,Total 2.1 mg/dl (0.2-1.0); Calcium 8.9 mg/dl (8.6-10.3); Creatinine Clr Calc Pharmacy 16.6 ml/min; Globulin 2.8 gm/dl (2.5-4.0); Potassium 6.8 mmol/L (3.5-5.1); Total Protein 5.9 gm/dl (6.0-8.3)
[2024-02-01] MEDS: CALCIUM GLUCONATE 1,000 MG/60 ML BAG IV STA ×2 (09:49→19:07)
[2024-02-01] MEDS: DEXTROSE 50% 50 ML SYRINGE IV STA ×3 (09:51→22:59)
[2024-02-01] MEDS: INSULIN HUMAN REGULAR PER UNIT 10 UNITS in SYRINGE 9.9 ML IV STA ×2 (10:00→19:10)
[2024-02-01] MEDS: PATIROMER CALCIUM SORBITEX 8.4 GM PACK PO STA (10:18)
[2024-02-01] MEDS: SODIUM BICARB 8.4% INJ 50 MEQ/50 ML SYR IV STA ×2 (10:30→19:35)
[2024-02-01] MEDS: ALBUMIN 5% 250 ML IV ONE (10:30)
[2024-02-01] MEDS: ALBUTEROL 0.5% NEB SOLN 2.5 MG/0.5 ML VIAL NEB STA (10:43)
[2024-02-01 10:56] LABS: Basophils # (auto) 0.01 K/uL (0.00-0.20); Basophils % (auto) 0.1 %; Eosinophils # (auto) 0.03 K/uL (0.00-0.50); Eosinophils % (auto) 0.4 %; Hematocrit (blood only) 30.1 % (37.0-47.0); Hemoglobin 9.5 g/dl (12.0-16.0); Immature Granulocytes # (auto) 0.05 K/uL (0.01-0.20); Immature Granulocytes % (auto) 0.6 %; Lymphocytes # (auto) 0.95 K/uL (1.20-3.40); Lymphocytes % (auto) 11.4 %; Mean Corpuscular Hemoglobin 33.8 pg (25.0-34.0); Mean Corpuscular Hgb Conc 31.6 g/dL (32.0-36.0); Mean Corpuscular Volume 107.1 fL (80.0-100.0); Mean Platelet Volume 10.3 fL (9.4-12.4); Monocytes # (auto) 0.91 K/uL (0.11-0.59); Monocytes % (auto) 10.9 %; Neutrophils # (auto) 6.41 K/uL (1.40-6.50); Neutrophils % (auto) 76.6 %; Platelet Count 56 K/uL (130-400); RDW Coefficient of Variation 19.4 % (11.5-14.5); Red Blood Count 2.81 M/uL (4.20-5.40); White Blood Count 8.36 K/ul (4.8-10.8)
--- NOTE | 2024-02-01 12:19 | History & Physical Report ---
Date of Service February 01, 2024 Assessment & Plan (1) Acute kidney injury superimposed on chronic kidney disease: Plan: In setting of recent paracentesis with extensive fluid drainage with continued diuretic use - Suspect ATN from prerenal azotemia - Admit to monitored bed - Diabetic/renal/low salt and low K+ diet - Given 250 cc of IVF in ED, defer further fluid administration - Hold all diuretics - Obtain urgent ultrasound of left kidney to exclude postobstructive process - Consult nephrology, appreciate assistance - Trend labs @ 1500 and again in AM (2) Hyperkalemia: Plan: Acute and multifactorial in setting of acute renal failure and continued potassium supplement use + potassium sparing diuretics - Treated with multiple medications in the ED as noted in HPI - Repeat BMP @ 1500 - Discontinued potassium supplements and spironolactone (3) Cirrhosis of liver: Plan: Chronic secondary to [place] with hepatocellular CA s/p paracentesis on 01/22 and 01/30 - Monitor daily weights and I/O qshift - Hold diuretics as outlined above (4) Type 2 diabetes mellitus with obesity: Plan: Chronic - Last a1c 5.2% in October 2023 - Currently appears to be on mixed 70/30 insulin - Hold and will start on Lantus/Log - Lantus 10 units BID - Lispro CF 40 and CR 14 - Monitor accuchecks ac and hs - Hold Metformin d/t renal failure Plan Additional stable medical problems: 1. History of breast CA - continue anastrazole 2. ABDELRAHMAN - H/H stable. continue FeSO4 supplementation, repeat CBC in AM, had recent iron infusion 3. GERD - continue PPI, change to protonix per hospital formulary 4. HLD - continue simvastatin Of note, med reconciliation so home medications that are appropriate to be resumed have not yet been ordered. AM labs ordered including CBC, BMP, Mag and Phos. Appreciate nephrology assistance. Bedside POC US performed by attending with concern for possible small pericardial effusion. Echo to further eval ordered. Plan has been d/w Dr. Oliveros, further orders to be implemented as clinically warranted. History of Present Illness Chief Complaint: Abnormal labs, directed by physician to come to ED Primary Care Provider: Soco Lopez MD Rufus is a 73 yo F with a pmhx of [place] cirrhosis with hepatocellular CA, DMT2 w/ CKD, renal cell CA s/p right nephrectomy, and DCIS who presents to the ER as a referral due to abnormal labs. Patient reports that she has had two paracentesis procedures in the past 2 weeks. First was on 01/22, at which time she had blood work demonstrating her baseline renal fxn with a creatinine of 1.4. She had approx 4L of acites removed. She then had repeat labs on 01/30 which showed a creatinine of 3.0 and a potassium of 5.9. Despite that, she underwent repeat paracentesis with approx 7.6L of fluid removed. She was then contacted due to the abnormal labs and instructed to come to the ER. Also of note, she was discharged from [facility] in Dec 2023 following a hospitalization for respiratory failure secondary to a large left pleural effusion and was discharged on an increased dose of spironolactone (was prior on 50mg and was increased to 100mg at time of discharge). She currently endorses decreased urinary frequency but is not able to state when she first noticed this. She denies hematuria, flank pain/back pain, dysuria, pruritus, n/v, or anorexia. She did not take any of her morning medications today or eat breakfast. Her repeat lab in the ED show a creatinine of 3.91 and a potassium of 6.8. She does have a h/o CKD and is established with [facility] [place]. She currently denies dyspnea, palpitations, or chest pain. She was medicated with a dose of Albumin, regular insulin, calcium gluconate, Albuterol, patiromer, and a dose of sodium bicarbonate. She has been referred to the hospital medicine team for admission. Allergies Allergy/AdvReac Type Severity Reaction Status Date / Time oxycodone AdvReac Mild NAUSEA Verified 01/12/24 14:56 WITH EMESIS Home Medications Medication Instructions Recorded Confirmed Type acetaminophen 500 mg tablet 1,000 mg PO BID PRN Pain 02/03/22 02/01/24 History mecobalamin (vitamin B12) 1,000 1,000 mcg PO QAM 02/03/22 02/01/24 History mcg chewable tablet anastrozole 1 mg tablet 1 mg PO QAM 10/05/22 02/01/24 History propranolol 20 mg tablet 20 mg PO QAM #30 tabs 04/12/23 02/01/24 Rx ergocalciferol (vitamin D2) 1,250 50,000 unit PO MONTHLY #12 caps 04/18/23 02/01/24 Rx mcg (50,000 unit) capsule blood sugar diagnostic #200 ea 07/04/23 02/01/24 Rx metformin 500 mg tablet 500 mg PO BID #180 tabs 07/04/23 02/01/24 Rx furosemide 20 mg tablet (Lasix) 20 mg PO . ON HOLD 08/29/23 02/01/24 History insulin aspar prt-insulin aspart 20 unit subcut BID 11/30/23 02/01/24 History 100 unit/mL (70-30) subcutaneous soln (Novolog Mix 70-30 U-100 Insuln) diclofenac sodium 1 % topical gel 2 g topical QID PRN Other 01/01/24 02/01/24 History (Voltaren Arthritis Pain) potassium chloride 10 mEq 20 meq PO .ON HOLD 01/01/24 02/01/24 History capsule,extended release ferrous sulfate 325 mg (65 mg 325 mg PO .ON HOLD 02/01/24 02/01/24 History iron) tablet (FeroSul) omeprazole 20 mg tablet,delayed 20 mg PO QDL 02/01/24 02/01/24 History release simvastatin 20 mg tablet 20 mg PO HS 02/01/24 02/01/24 History spironolactone 100 mg tablet 100 mg PO .ON HOLD 02/01/24 02/01/24 History Past Med/Surg History Problem List (Updated 02/01/24 @ 14:40 by Cabrera Noland DO) Acute hyperkalemia (Acute) Hyperkalemia Acute kidney injury superimposed on chronic kidney disease Acute dyspnea (Acute) Pleural effusion on left (Acute) Respiratory failure (Acute) Hypoglycemia (Acute) Syncope (Acute) Elevated troponin (Acute) Hepatocellular carcinoma Leg cramps Iron deficiency anemia Type 2 diabetes mellitus with obesity Vitamin D deficiency (Chronic) Proteinuria (Chronic) Former smoker (Chronic) Anemia Thrombocytopenia Leukopenia Steatosis of liver Hypercholesterolemia History of renal cell carcinoma (~2007) Left Kidney 2007 Type 2 diabetes mellitus with retinopathy of both eyes, with long-term current use of insulin Hypertension (Chronic) Absent kidney, acquired (Chronic) [place] (nonalcoholic steatohepatitis) Cirrhosis of liver 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 Due to cirrhosis, Vit B12 def, and iron def per records- follows with heme Hyperlipidemia Sleep apnea cpap Surgical History Status post left breast lumpectomy 06/06/22 Dr. Gee Amaro History of esophagogastroduodenoscopy (EGD) Status post right knee replacement History of cataract surgery R/L Status post cystoscopy with ureteral stent placement History of anesthesia reaction "terrible headache from spinal" + with previous colonoscopy>"woke up in middle of procedure and could feel pain" History of lithotripsy History of colonoscopy History of nephrectomy, unilateral left History of tooth extraction all teeth removed History of surgical procedure on eye proper using laser left Family History Father , 67yo Myocardial infarction Stroke Diabetes Mother , 79yo History of kidney cancer Diabetes Sister , 32yo Aspiration into airway Other No family history of adverse response to anesthesia Denies family history of Prostate cancer Breast cancer Colorectal cancer Social History Smoking Status: Never smoker Tobacco Type: Cigarettes Second Hand Exposure: No; Do You Dip or Chew Tobacco: No; Hx Alcohol Use: No Hx Substance Use: No Preferred Language: Croatian Communication Ability: Effective Visual Impairment: No Limitations Hearing Ability: Normal 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 Required: No Beliefs That Will Affect Care: None marital status: Single Current Living Situation: Alone current occupational status: retired 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 Denies fever, chills, fatigue, headache, nasal congestion, sore throat, cough, chest pain, shortness of breath, palpitations, orthopnea, PND, abdominal pain, n/v, constipation, dysuria, hematuria, frequency, back pain, joint pain or swelling, easy bruising or bleeding, skin lesions or rashes. Physical Exam 2 Physical Exam: GENERAL: 73 yo overweight elderly F. NAD. EYES: EOMI. PERRLA. HENT: Moist mucous membranes. No cervical lymphadenopathy. LUNGS: Clear to auscultation bilaterally. No W/R/R. CARDIOVASCULAR: Regular rate and rhythm. No M/G/R. No JVD. ABDOMEN: Soft, non-tender and non-distended. Bowel sounds normoactive x 4 quad. EXTREMITIES: No edema. Non-tender. Peripheral pulses +2/4. NEUROLOGIC: A&O x3. No focal neurological deficits. CN II-XII grossly intact. PSYCHIATRIC: Cooperative. Appropriate mood and affect. SKIN: Warm, dry, intact. No rashes or lesions. Results & Data Results & Data Vital Signs (Past 12 Hours) Vital Signs Temp Pulse Pulse Resp BP BP Pulse Ox 02/01/24 11:06 87 20 106/77 100 02/01/24 10:21 83 22 98/55 L 96 02/01/24 10:11 83 20 85/48 L 96 02/01/24 09:05 84 02/01/24 08:53 86 22 119/63 95 02/01/24 08:49 36.7 C 86 22 119/63 95 O2 Del Method 02/01/24 11:06 Room Air 02/01/24 10:21 Room Air 02/01/24 10:11 Room Air 02/01/24 09:05 02/01/24 08:53 Room Air 02/01/24 08:49 Room Air Laboratory Results 02/01/24 08:48 02/01/24 08:48 Code Status & VTE Plan Code Status Full code - confirmed with patient and daughter VTE Prophylaxis Plan VTE Prophylaxis will be ordered: Yes Critical Care Time Critical Care Time: Yes Total Critical Care Time: 40 Supervising Physician Co-Signing Physician Notes I personally saw and examined the patient. I independently reviewed the labs, EKG, imaging, problem list, medication list, past medical history and family history. I verified all sherman points and agree with Zuly Lee PA-C with the following exceptions and/or additions: 73 year old female presents to the ER with hyperkalemia and SHIREEN on outpatient labs following recent paracentesis on Lasix and spironolactone. Unable to lie flat due to shortness of breath. Trace pericardial effusion on POCUS US at bedside. Unable to lie flat to evaluate IVC. Left pleural effusion noted. She last urinated shortly before coming to the ER. O/E HS RRR, no murmurs, Chest bibasal crackles with reduced breath sounds on left side. Abdo distended but soft, normal BS, no CVA tenderness A/P SHIREEN/hyperkalemia - Suspected secondary to intra-vascular depletion in setting of paracentesis with ongoing diuretic use. Renal US without obstruction. Stop diuretics. Patient seen at beginning and end of day. Additional insulin/dextrose given twice due to ongoing hyperkalemia. Lokelma 10g TID started. Echo concerning for intravascular depletion therefore started on sodium bicarb 150 meq @ 100ml/hr overnight. Midodrine 5mg TID started. Due to hypotension and poor urine output will give plasma-lyte 500ml bolus. Avoid excessive IV fluids as likely will end up intra-abdominally and pleural effusion (pt already unable to lie flat on admission). Marinelli catheter inserted to accurately measure urine output. Patient handed over to night resident and physician for ongoing management with q4h BMP. PG Care Time/CCT Total # of Minutes Spent Total Time Spent with Patient: Total time spent is greater than 50% in coordination of care (as documented) at patient's floor/unit and/or counseling patient: 80 minutes Critical Care Time: Yes Total Critical Care Time: 40 Coding Level of Care Code 46873 INT INP/OBS CARE 3/75MIN Diagnoses Acute kidney injury superimposed on chronic kidney disease N17.9; N18.9 Hyperkalemia E87.5 Cirrhosis of liver K74.60 Type 2 diabetes mellitus with obesity E11.69; E66.9 Additional Codes Critical Care Time - Critical Care Time: Yes ([id number])
--- NOTE | 2024-02-01 13:53 | Ultrasound Report ---
RENAL ULTRASOUND HISTORY: SHIREEN, one kidney, r/o obstructive process COMPARISON: CT abdomen and pelvis 01/01/2024 FINDINGS: Right kidney: 11.0 cm. 2.9 x 2.2 x 2.0 cm cyst of the superior pole right kidney is stable from prior CT study. No hydronephrosis. Normal corticomedullary differentiation and cortical thickness. Left kidney: Surgically absent. Bladder: Decompressed and not well seen. Cirrhotic liver with ascites. IMPRESSION: 1. Unremarkable sonographic appearance of the right kidney. No hydronephrosis. 2. Absent left kidney. 3. Cirrhosis with ascites redemonstrated. ACT 112: Negative or not required by law. Electronically signed by: Claude Reese M.D. 02/01/2024 1:51 PM
--- NOTE | 2024-02-01 14:19 | Electrocardiogram Report ---
Test Reason : Blood Pressure : */* mmHG Vent. Rate : 85 BPM Atrial Rate : * BPM P-R Int : * ms QRS Dur : 86 ms QT Int : 370 ms P-R-T Axes : * 33 11 degrees QTcB Int : 440 ms Sinus rhythm Minor Nonspecific ST abnormality Anterior leads Abnormal ECG When compared with ECG of 01-Jan-2024 15:53, Nonspecific ST abnormality now present Nonspecific T wave abnormality Lateral leads no longer present Confirmed by Jewel Peterson ([id number]) on 02/01/2024 2:18:46 PM Referred By: REFERRED SELF Confirmed By: Jewel Peterson
[2024-02-01] MEDS ORDERED: DEXTROSE 50% 50 ML SYRINGE IV PRN (14:52)
[2024-02-01] MEDS ORDERED: ONDANSETRON INJ 2 MG/ML 2 ML VIAL IV PRN (14:52)
[2024-02-01] MEDS ORDERED: GLUCAGON FOR INJ 1 MG VIAL SQ PRN (14:52)
[2024-02-01] MEDS ORDERED: GLUCOSE 10 TAB/TUBE PO PRN (14:52)
[2024-02-01] MEDS ORDERED: GLUCOSE 40% GEL 15 GM TUBE PO PRN (14:52)
[2024-02-01] MEDS ORDERED: MAGNESIUM HYDROXIDE SUSP 30 ML UDC PO PRN (14:52)
[2024-02-01] MEDS ORDERED: ALUMINUM/MAGNESIUM SUSP 30 ML UDC PO PRN (14:52)
[2024-02-01] MEDS ORDERED: CARBOHYDRATES FOR HYPOGLYCEMIA PO PRN (14:52)
--- NOTE | 2024-02-01 15:12 | XCELERA ---
[id number]
--- NOTE | 2024-02-01 15:18 | Nephrology Consultation ---
Date of Consultation February 01, 2024 Assessment & Plan (1) Acute kidney injury superimposed on chronic kidney disease: (2) Acute hyperkalemia: (3) Iron deficiency anemia: (4) Proteinuria: (5) ORLANDO (nonalcoholic steatohepatitis): (6) Absent kidney, acquired: Plan 73-year-old female with stage IIIa CKD, baseline creatinine 1.3-1.4 mg/dl in the setting of diabetes and solitary right kidney with history of left nephrectomy for renal cell carcinoma, [place]O, ascites with history of hepatocellular carcinoma admitted to the hospital with SHIREEN and hyperkalemia while on high-dose spironolactone and potassium supplement. On admission creatinine was 3.9 and potassium 6.7. Spironolactone and potassium supplement was discontinued, given insulin, calcium gluconate and Veltassa. Clinically looks volume contracted, SHIREEN most likely secondary to prerenal etiology with [id number] high-dose paracentesis and almost 12 L fluid removal within a week, high-dose diuretics and fluid restriction. Unlikely acute hepatorenal syndrome. --Agree with holding spironolactone and potassium supplement. Hold Lasix for now. --Encourage p.o. intake, avoid fluid restriction for now. --Start on midodrine 5 mg 3 times daily --Once kidney function stabilizes, would resume Lasix. Eventually spironolactone can be started slowly once potassium improved and avoid potassium supplement. -- As she was supposed to get MRI of the liver done at [facility] as recommended by her cartridge filler which she was not able to do, she was wondering whether she can get the MRI done here and get evaluated by Dr. Teran who is her oncologist. Thank you for allowing me to participate in your patient's care. It was a pleasure to see Rufus History of Present Illness Reason for Consultation: SHIREEN, Hyperkalemia. Attending Physician: Omari Oliveros MD History of Present Illness Ms. Rufus Thompson is a 73 yo F with PMH of stage 3A CKD, s/p left nephrectomy for RCC, ORLANDO cirrhosis with hepatocellular CA, DMT2 admitted with SHIREEN and hyperkalemia. Nephrology consult was requested for management of SHIREEN and hyperkalemia. EMR records were reviewed in detail during patient's visit. Rufus was advised to come to ER after outpatient lab showed SHIREEN and hyperkalemia. She had labs done yesterday showing creatinine of 3.0 mg/dl and potassium 5.9 with baseline creatinine around 1.3-1.4 mg/dl, last cr was 1.4 mg/dl on 01/23/24. Blood pressure has been chronically low. On admission lab today showed creatinine 3.9 potassium 6.8. Spironolactone and potassium supplement was stopped she was given insulin, calcium gluconate, Veltassa. Repeat lab is pending. Renal ultrasound was unremarkable with no postrenal obstruction, solitary right kidney. Urinalysis with no proteinuria or microscopic hematuria. She has history of ORLANDO and hepatocellular carcinoma, she was admitted to hospital in December for respiratory failure secondary to large pleural effusion and on discharge spironolactone was increased from 50 mg to 100 mg daily, Lasix 20 mg daily and potassium supplement 20 meq twice a day. She was not on ANNA MARIE inhibitor or ARB. She had [id number]-qn-[id number] paracentesis for ascites over last 1 week, had 4.4 L of fluid removed a week ago and had paracentesis yesterday with 7.7 L of fluid removed. Has stage III A CKD, baseline creatinine 1.3-1.4 mg/dl secondary to diabetic nephropathy and solitary right kidney with history of left nephrectomy for renal cell carcinoma in 2007, follows with Dr. Stewart at the CKD clinic. No significant proteinuria. Never smoker. Has extensive family history of renal cell carcinoma including her mom and several cousins. Has chronic anemia, and thrombocytopenia with liver cirrhosis, hemoglobin around 10. Has history of diabetes for more than 30 years with retinopathy, s/p laser surgery before. She was first diagnosed with renal cell carcinoma in 2007 status post left nephrectomy. In late 2021 she was diagnosed with breast cancer, status postlumpectomy and radiation therapy and then in late 2022 she was diagnosed to be hepatocellular carcinoma and cirrhosis. She had paracentesis in July and since then she has been otherwise asymptomatic until December when she was admitted to be ascites and pleural effusion and since then she has been having w eekly paracentesis. She denies hematuria, flank pain/back pain, dysuria, pruritus, n/v, or anorexia. Denies any shortness of breath. Reports overall feeling exhausted and fatigued. She reports decreased urine output that she noticed over last few weeks. Allergies Allergy/AdvReac Type Severity Reaction Status Date / Time oxycodone AdvReac Mild NAUSEA Verified 01/12/24 14:56 WITH EMESIS Home Medications Medication Instructions Recorded Confirmed Type acetaminophen 500 mg tablet 1,000 mg PO BID PRN Pain 02/03/22 01/12/24 History mecobalamin (vitamin B12) 1,000 1,000 mcg PO DAILY 02/03/22 01/12/24 History mcg chewable tablet anastrozole 1 mg tablet 1 mg PO QAM 10/05/22 01/12/24 History propranolol 20 mg tablet 20 mg PO QAM #30 tabs 04/12/23 01/12/24 Rx ergocalciferol (vitamin D2) 1,250 50,000 unit PO MONTHLY #12 caps 04/18/23 01/12/24 Rx mcg (50,000 unit) capsule blood sugar diagnostic #200 ea 07/04/23 01/12/24 Rx metformin 500 mg tablet 500 mg PO BID #180 tabs 07/04/23 01/12/24 Rx furosemide 20 mg tablet (Lasix) 20 mg PO DAILY 08/29/23 01/12/24 History insulin aspar prt-insulin aspart 20 unit subcut BID 11/30/23 01/12/24 History 100 unit/mL (70-30) subcutaneous soln (Novolog Mix 70-30 U-100 Insuln) diclofenac sodium 1 % topical gel 2 g topical QID PRN Other 01/01/24 01/12/24 History (Voltaren Arthritis Pain) ferrous sulfate 324 mg (65 mg 324 mg PO UD 01/01/24 01/12/24 History iron) tablet,delayed release potassium chloride 10 mEq 20 meq PO BID 01/01/24 01/12/24 History capsule,extended release spironolactone 100 mg tablet 100 mg PO DAILY #30 tabs 01/04/24 01/12/24 Rx omeprazole 20 mg tablet,delayed 20 mg PO DAILY #90 tabs 01/29/24 Rx release simvastatin 20 mg tablet 20 mg PO HS #90 tabs 01/29/24 Rx Patient History Medical History Elevated troponin Fall at home Hypoglycemia associated with type 2 diabetes mellitus History of kidney stones Breast cancer, left breast Biopsy on 04/28/22>completed radiation August 2022 Thrombocytopenia Platelet counts under 100 since 2016. Due to cirrhosis, Vit B12 def, and iron def per records- follows with heme Hyperlipidemia Sleep apnea cpap Surgical History Status post left breast lumpectomy 06/06/22 Dr. Gee Amaro History of esophagogastroduodenoscopy (EGD) Status post right knee replacement History of cataract surgery R/L Status post cystoscopy with ureteral stent placement History of anesthesia reaction "terrible headache from spinal" + with previous colonoscopy>"woke up in middle of procedure and could feel pain" History of lithotripsy History of colonoscopy History of nephrectomy, unilateral left History of tooth extraction all teeth removed History of surgical procedure on eye proper using laser left Family History Father , 67yo Myocardial infarction Stroke Diabetes Mother , 79yo History of kidney cancer Diabetes Sister , 32yo Aspiration into airway Other No family history of adverse response to anesthesia Denies family history of Prostate cancer Breast cancer Colorectal cancer Social History Smoking Status: Never smoker Tobacco Type: Cigarettes Second Hand Exposure: No; Do You Dip or Chew Tobacco: No; Hx Alcohol Use: No Hx Substance Use: No Preferred Language: Anguill[place] Communication Ability: Effective Visual Impairment: No Limitations Hearing Ability: Normal Track Man Required: No Beliefs That Will Affect Care: None marital status: Single Current Living Situation: Alone current occupational status: retired 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 [employer] How many Children do You have: 0 Other Information That Helps Us Care for You: No Feels Safe at Home: Yes Safety Concerns: Feels Safe At This Time Childhood Exposure to Second-Hand Smoke: No Diet: regular caffeine: No during the past year weight has: remained stable Dental Care, Regularly: No Physical Activity Frequency: Does not Exercise Seatbelt Use: always Sunscreen Use: No Assistive Devices: Cane, CPAP, Denture - Upper, Denture - Lower and Walker Review of Systems 2 Review of Systems: Detailed review of system was done and pertinent positives and negatives were mentioned above. Physical Exam Constitutional: WD/WN, vitals as above + ill appearing; no acute distress Eyes: + anicteric sclerae Neck: normal visual inspection Respiratory: no respiratory distress Auscultation: lungs clear to auscultation bilaterally Cardiovascular: Rate/Rhythm: regular rate and regular rhythm Heart Sounds: normal S1 and normal S2 Extremities: no edema Gastrointestinal (Abdomen): Inspection/Auscultation: abdomen normal to inspection Percussion/Palpation: abdomen soft; abdomen nontender Musculoskeletal: Extremities: extremities normal to inspection Skin: no rashes, warm and dry Neurologic: no focal motor deficits Psychiatric: Orientation: alert and oriented x 3 Affect: euthymic affect Results & Data Vital Signs (Past 12 Hours) Vital Signs Temp Pulse Pulse Resp BP BP Pulse Ox 02/01/24 14:09 83 22 95/49 L 95 02/01/24 12:09 83 22 95 02/01/24 11:51 82 28 H 100/59 L 95 02/01/24 11:06 87 20 106/77 100 02/01/24 11:00 81 29 H 107/56 L 100 02/01/24 10:21 83 22 98/55 L 96 02/01/24 10:11 83 20 85/48 L 96 02/01/24 09:05 84 02/01/24 08:53 86 22 119/63 95 02/01/24 08:49 36.7 C 86 22 119/63 95 O2 Del Method 02/01/24 14:09 Room Air 02/01/24 12:09 02/01/24 11:51 02/01/24 11:06 Room Air 02/01/24 11:00 02/01/24 10:21 Room Air 02/01/24 10:11 Room Air 02/01/24 09:05 02/01/24 08:53 Room Air 02/01/24 08:49 Room Air PG Care Time/CCT Total # of Minutes Spent Total Time Spent with Patient: Total time spent is greater than 50% in coordination of care (as documented) at patient's floor/unit and/or counseling patient: Coding Level of Care Code 82235 INT INP/OBS CARE 3/75MIN Diagnoses Acute kidney injury superimposed on chronic kidney disease N17.9; N18.9 Acute hyperkalemia E87.5 Iron deficiency anemia D50.9 Proteinuria R80.9 ORLANDO (nonalcoholic steatohepatitis) K75.81 Absent kidney, acquired Z90.5
[2024-02-01] MEDS: INSULIN ASPART PER UNIT CHARGE SC SCH (16:48)
[2024-02-01] MEDS: LIDOCAINE 5% 1 PATCH TD SCH (18:23)
[2024-02-01] MEDS: MIDODRINE HCL 2.5 MG TAB PO SCH (18:23)
[2024-02-01 18:32] LABS: BUN Creatinine Ratio 10.3 (10-20); Calcium 9.1 mg/dl (8.6-10.3); Creatinine Clr Calc Pharmacy 15.2 ml/min
[2024-02-01] MEDS: ACETAMINOPHEN 325 MG TAB PO PRN (19:20)
--- OUTSIDE RECORDS SUMMARY | 2024-02-01 20:08 | External Medical Summary | Continuity of Care Document ---
Author Name Unknown Organization [facility] [address] Address [address] [place], [place] [id number] Care Team Providers Care Property Insurance Claims Examiner Name Role Phone Soco Lopez Primary Care Physician [id number] Encounter [facility] [id number] Date(s): 01/24/24 - 01/24/24 [facility] [address] [facility] [address] [place], [phone] Encounter Diagnosis Unspecified cirrhosis of liver(Final) - Abnormality of alphafetoprotein(Final) - Portal hypertension(Final) - Discharge Disposition: Home or Self Care Attending Physician: MORGAN Ivy Kelli Jo Referring Physician: MORGAN Ivy Kelli Jo Allergies, Adverse Reactions, Alerts Substance Criticality Severity Reaction Reaction Severity Status Percocet Unable to assess criticality Moderate Headache Active Medications anastrozole 1 mg oral tablet Start: 02/02/23 12:50:00 PM EDT, 1 tab, PO, Daily Start Date: 02/02/23 Status: Ordered Cipro 500 mg oral tablet Start: 01/24/24 1:38:00 PM EDT, 1 tab, PO, q12h, Disp# 10 tab, Refills: 0, Pharmacy: [facility] Start Date: 01/24/24 Stop Date: 01/29/24 Status: Ordered ferrous sulfate 325 mg (65 mg elemental iron) oral tablet Start: 06/30/21 10:00:00 AM EDT, See Instructions, 2 tab po in the am and 1 tab po in the pm Start Date: 06/30/21 Status: Ordered Januvia 100 mg oral tablet Start: 06/30/21 9:56:00 AM EDT, 1 tab, PO, Daily Start Date: 06/30/21 Status: Ordered Lasix 20 mg oral tablet Start: 08/18/23 11:21:00 AM EDT, 1 tab, PO, Daily, Disp# 90 tab, Refills: 3, STOP Hydrocholothiazide,Note to Pharmacy: D/C Hydrocholothiazide, Pharmacy: [facility] Start Date: 08/18/23 Stop Date: 08/12/24 Status: Ordered metFORMIN 500 mg oral tablet Start: 06/30/21 9:56:00 AM EDT, 1 tab, PO, bid Start Date: 06/30/21 Status: Ordered NovoLOG Mix 70/30 FlexPen subcutaneous suspension Start: 06/30/21 9:58:00 AM EDT, 20 units in the am and pm Start Date: 06/30/21 Status: Ordered omeprazole 20 mg oral delayed release capsule Start: 06/30/21 9:56:00 AM EDT, 1 cap, PO, Daily Start Date: 06/30/21 Status: Ordered potassium chloride 10 mEq oral capsule, extended release Start: 06/30/21 9:56:00 AM EDT, 2 cap, PO, bid Start Date: 06/30/21 Status: Ordered propranolol 20 mg oral tablet Start: 04/11/23 4:09:00 PM EST, 1 tab, PO, Daily, Disp# 90 tab, Refills: 3, Pharmacy: [facility] Start Date: 04/11/23 Status: Ordered simvastatin 20 mg oral tablet Start: 06/30/21 9:56:00 AM EDT, 1 tab, PO, qhs Start Date: 06/30/21 Status: Ordered spironolactone 50 mg oral tablet Start: 08/18/23 11:20:00 AM EDT, 1 tab, PO, Daily, Disp# 90 tab, Refills: 3, Pharmacy: [facility] Start Date: 08/18/23 Stop Date: 08/12/24 Status: Ordered Vitamin B-12 1000 mcg oral tablet Start: 10/22/21 1:20:00 PM EDT, 1 tab, PO, Daily Start Date: 10/22/21 Status: Ordered Vitamin D2 50,000 intl units (1.25 mg) oral capsule Start: 06/30/21 9:57:00 AM EDT, 1 cap, PO, [id number] Start Date: 06/30/21 Status: Ordered Problem List Condition Confirmation Course Effective Dates Status Health St atus Informant Elevated AFP Confirmed Active Cirrhosis of liver Confirmed Active Diabetes mellitus Confirmed Active Portal hypertensive gastropathy Confirmed Active Sleep apnea Confirmed Active Procedures Procedure Date Related Diagnosis Body Site Status Breast lumpectomy 06/06/22 Complet ed Ultrasound--abdominal 1 01/24/22 C ompleted EGD - Esophagogastroduodenoscopy 2, 3 09/22/21 Completed Left nephrectomy Complete d Total knee replacement 4 Completed 11) Cirrhotic liver, unchanged 2) Cholelithiasis without evidence for acute cholecystitis. 3) Additional findings as described above. 2Pathology results: Stomach, polyp, polypectomy: -hyperplastic polyp -negative for dysplasia and malignancy 3F/U as scheduled 4Right Knee Results Laboratory List Name Date Alpha Fetoprotein (ALPHA FETOPROTEIN) Basic Metabolic Panel (BASIC METAB PANEL ) 01/24/24 Complete Blood Count (CBC) 01/24/24 Hepatic Function Panel (HEPATIC FUNCT PA KATELYN) 01/24/24 Partial Thromboplastin Time (PTT) 4 Prothrombin Time w/ INR (PROTIME WITH IN R) 01/24/24 Request to FAX Report (First Location) ( ACC NO TO BE FAXED) 01/24/24 Most recent to oldest [Reference Range]: 1 eGFR CKD-EPI [>60 mL/min/1.73 m2] 39 mL/ min/1.73 m2 1 *LOW* (01/24/24 2:45 PM) AFP. [<8.4 ng/mL] 99.9 ng/mL *HI* (01/24/24 2:45 PM) Estimated CrCl 47.40 mL/min (01/24/24 3:16 PM) Phone No [phone] (01/24/24 2:45 PM) Faxed on: 01/25/24 09:15 (01/24/24 2:45 PM) MPV [9.0-12.2 fL] 10.5 fL (01/24/24 2:45 PM) RDW [11.5-14.2 %] 17.2 % *HI* (01/24/24 2:45 PM) Anion Gap [5-14 mmol/L] 9 mmol/L (01/24/24 2:45 PM) Alb [3.5-5.0 g/dL] 2.7 g/dL *LOW* (01/24/24 2:45 PM) Alk Phos [38-126 unit/L] 116 unit/L (01/24/24 2:45 PM) ALT [<35 unit/L] 29 unit/L (01/24/24 2:45 PM) AST [15-46 unit/L] 24 unit/L (01/24/24 2:45 PM) BUN [7-20 mg/dL] 27 mg/dL *HI* (01/24/24 2:45 PM) Ca [8.4-10.2 mg/dL] 8.9 mg/dL (01/24/24 2:45 PM) Cl- [96-107 mmol/L] 107 mmol/L (01/24/24 2:45 PM) HCO3 [22-30 mmol/L] 19 mmol/L *LOW* (01/24/24 2:45 PM) Cret [0.60-1.00 mg/dL] 1.44 mg/dL *HI* (01/24/24 2:45 PM) D Bili [0.0-0.6 mg/dL] 0.6 mg/dL (01/24/24 2:45 PM) Glu [74-106 mg/dL] 244 mg/dL *HI* (01/24/24 2:45 PM) Hct [35-44 %] 25.2 % *LOW* (01/24/24 2:45 PM) Hgb [11.7-15.0 g/dL] 8.2 g/dL *LOW* (01/24/24 2:45 PM) INR [0.9-1.1] 1.4 3 *HI* (01/24/24 2:45 PM) K [3.5-5.1 mmol/L] 5.0 mmol/L (01/24/24 2:45 PM) MCH [28-33 pg] 35.0 pg *HI* (01/24/24 2:45 PM) MCHC [32-36 g/dL] 32.5 g/dL (01/24/24 2:45 PM) MCV [81-96 fL] 107.7 fL *HI* (01/24/24 2:45 PM) Na [137-145 mmol/L] 135 mmol/L *LOW* (01/24/24 2:45 PM) Plts [150-350 K/uL] 69 K/uL *LOW* (01/24/24 2:45 PM) PT [12.0-14.2 seconds] 17.0 seconds *HI* (01/24/24 2:45 PM) PTT [23-35 seconds] 34 seconds (01/24/24 2:45 PM) RBC [3.90-5.00 M/uL] 2.34 M/uL *LOW* (01/24/24 2:45 PM) T Bili [0.2-1.3 mg/dL] 1.6 mg/dL *HI* (01/24/24 2:45 PM) Prot [6.3-8.2 g/dL] 5.8 g/dL 4 *LOW* (01/24/24 2:45 PM) WBC [4.0-10.4 K/uL] 6.83 K/uL (01/24/24 2:45 PM) 1Result Comment: Testing Performed By: Dept of Pathology [facility] Neisha Cavanaugh, [address] [place] [address], [place] [address] 2Result Comment: Testing Performed By: [facility], [address] [place] [address], [place] [address] 3Result Comment: Suggested therapeutic range for low-intensity Coumadin therapy for venous thromboembolism is INR 2.0-3.0 (ex: atrial fibrillation, history of TIA/stroke). For high risk patients, the suggested therapeutic range is INR 2.5-3.5 (ex: mechanical prosthetic valves). Testing Performed By: Dept of Pathology [facility] Neisha Cavanaugh, [address] [place] [address], [place] [address] 4Result Comment: Testing Performed By: [facility], [address] [place] [address], [place] [address] Social History Social History Type Response Smoking Status Never smoked cigaret breanna Sex Sex Representation Female (finding) Patient Care team information Care Team Personnel Name: MD John, Soco Lee Position: Referring Member Role: Primary Care Provider Address: [facility] [address], [facility] [address] [place] [address]
[2024-02-01] MEDS: SODIUM BICARBONATE 8.4% 150 MEQ in WATER, STERILE 1,000 ML IV SCH (20:39)
[2024-02-01] MEDS: SODIUM ZIRCONIUM CYCLOSILICATE 10 GM PACKET PO SCH (21:40)
[2024-02-01 21:59] LABS: HCO3 VBG 19 mmol/L; Oxygen Saturation VBG 69.5 %; PCO2 VBG 34 mmHg (38-50); PO2 VBG 41 mmHg; pH VBG 7.35 (7.36-7.41)
[2024-02-01] MEDS ORDERED: LACTATED RINGER'S 500 ML IV ONE (22:19)
[2024-02-01 22:23] LABS: BUN Creatinine Ratio 10.4 (10-20); Calcium 8.5 mg/dl (8.6-10.3); Creatinine Clr Calc Pharmacy 14.3 ml/min; Potassium 6.3 mmol/L (3.5-5.1)
[2024-02-01 22:31] LABS: Appearance Urine Turbid (Clear); Bacteria Urine Automated None Seen (None Seen); Bilirubin Urine 1+ (Negative); Blood Urine 3+ (Negative); Cast Urine Automated 0-2 /lpf (0-2); Color Urine Dark Yellow; Epithelial Cell Urine Auto 0-2 /hpf (0-2); Glucose Urine UA Trace (Negative); Ketones Urine Trace (Negative); Leukocyte Esterase Urine 1+ (Negative); Nitrite Urine Negative (Negative); Protein Urine 2+ (Negative); RBC Urine Automated >20 /hpf (0-2); Urobilinogen Urine Negative (Negative); WBC Urine Automated 0-5 /hpf (0-5)
[2024-02-01] MEDS: PLASMA-LYTE A 500 ML IV ONE (22:34)
[2024-02-01] MEDS: LANTUS PER UNIT CHARGE SQ SCH (22:45)
[2024-02-01] MEDS: INSULIN HUMAN REGULAR PER UNIT 10 UNITS in SYRINGE 9.9 ML IV ONE (22:47)
[2024-02-01] MEDS: ALBUMIN 25% 25 GM/100 ML VIAL IV SCH (23:53)
[2024-02-02] MEDS: PLASMA-LYTE A 500 ML IV ONE (00:13)
[2024-02-02 02:48] LABS: Base Excess VBG -5.9 mEq/L; HCO3 VBG 19 mmol/L; Oxygen Saturation VBG 97.9 %; PCO2 VBG 33 mmHg (38-50); PO2 VBG 95 mmHg; pH VBG 7.36 (7.36-7.41)
[2024-02-02 02:55] LABS: Eosinophils # (auto) 0.03 K/uL (0.00-0.50); Eosinophils % (auto) 0.5 %; Hematocrit (blood only) 23.8 % (37.0-47.0); Hemoglobin 7.9 g/dl (12.0-16.0); Immature Granulocytes # (auto) 0.03 K/uL (0.01-0.20); Immature Granulocytes % (auto) 0.5 %; Lymphocytes % (auto) 14.5 %; Mean Corpuscular Hemoglobin 35.1 pg (25.0-34.0); Mean Corpuscular Hgb Conc 33.2 g/dL (32.0-36.0); Mean Corpuscular Volume 105.8 fL (80.0-100.0); Mean Platelet Volume 9.7 fL (9.4-12.4); Monocytes # (auto) 0.57 K/uL (0.11-0.59); Monocytes % (auto) 10.3 %; Neutrophils % (auto) 74.2 %; Platelet Count 37 K/uL (130-400); RDW Coefficient of Variation 19.3 % (11.5-14.5); RDW Standard Deviation 74.7 fL (36.4-46.3); Red Blood Count 2.25 M/uL (4.20-5.40); White Blood Count 5.53 K/ul (4.8-10.8)
[2024-02-02 03:20] LABS: Polychromasia 1+
[2024-02-02 03:26] LABS: BUN Creatinine Ratio 9.9 (10-20); Calcium 8.3 mg/dl (8.6-10.3); Creatinine Clr Calc Pharmacy 14.6 ml/min; Magnesium 1.2 mg/dl (1.7-2.4); Phosphorus 4.4 mg/dl (2.5-4.9); Potassium 5.6 mmol/L (3.5-5.1)
[2024-02-02] MEDS: MIDODRINE HCL 2.5 MG TAB PO STA (04:01)
[2024-02-02] MEDS: ALBUMIN 5% 250 ML IV ONE (04:47)
[2024-02-02] MEDS: MAGNESIUM SULFATE / D5W 1 GM/100 ML BAG IV SCH (04:49)
[2024-02-02] MEDS: DEXTROSE 50% 50 ML SYRINGE IV STA (04:50)
[2024-02-02] MEDS: INSULIN HUMAN REGULAR PER UNIT 5 UNITS in SYRINGE 4.95 ML IV ONE (04:50)
[2024-02-02 06:59] LABS: Base Excess VBG -4.4 mEq/L; HCO3 VBG 21 mmol/L; Oxygen Saturation VBG 64.2 %; PCO2 VBG 39 mmHg (38-50); PO2 VBG 36 mmHg; pH VBG 7.34 (7.36-7.41)
--- NOTE | 2024-02-02 07:29 | XRay Report ---
XR chest 1V portable HISTORY: 73 years-old Female shortness of breath COMPARISON: 01/02/2024 TECHNIQUE: AP view of the chest FINDINGS: Cardiac silhouette is enlarged. Pulmonary vascular congestion with interstitial coarsening. Probable trace right pleural effusion. No pneumothorax. There is a large layering and multiloculated left pleu ral effusion which is stable to increased in size from prior with left lung volume loss/consolidation . Sigmoidal scoliosis of the spine. IMPRESSION: 1. Cardiomegaly with pulmonary vascular congestion. 2. Large left pleural effusion with left lung volume loss has mildly progressed from the December exam. ACT 112: Negative or not required by law. The above report was generated using voice recognition software. It may contain grammatical, syntax o r spelling errors. Electronically signed by: Claude Reese M.D. 02/02/2024 7:28 AM
[2024-02-02 07:53] LABS: BUN Creatinine Ratio 9.8 (10-20); Calcium 8.3 mg/dl (8.6-10.3); Creatinine Clr Calc Pharmacy 14.7 ml/min; Potassium 5.1 mmol/L (3.5-5.1)
[2024-02-02] MEDS: MIDODRINE HCL 10 MG TAB PO SCH (08:08)
[2024-02-02 10:10] LABS: Base Excess VBG -4.4 mEq/L; HCO3 VBG 22 mmol/L; Oxygen Saturation VBG < 60.0 %; PCO2 VBG 45 mmHg (38-50); PO2 VBG 30 mmHg
--- NOTE | 2024-02-02 10:11 | Nephrology Progress Note ---
Date of Service February 02, 2024 Assessment & Plan (1) Acute kidney injury superimposed on chronic kidney disease: (2) Acute hyperkalemia: (3) Iron deficiency anemia: (4) Proteinuria: (5) [place]O (nonalcoholic steatohepatitis): (6) Absent kidney, acquired: Plan 73-year-old female with stage IIIa CKD, baseline creatinine 1.3-1.4 mg/dl in the setting of diabetes and solitary right kidney with history of left nephrectomy for renal cell carcinoma, [place], ascites with history of hepatocellular carcinoma admitted to the hospital with SHIREEN and hyperkalemia while on high-dose spironolactone and potassium supplement. On admission creatinine was 3.9 and potassium 6.7. Spironolactone and potassium supplement was discontinued, given insulin, calcium gluconate and Veltassa. Clinically looks volume contracted,although CXR yesterday showed pulmonary vascular congestion and worsening left sided pleural effusion. SHIREEN most likely secondary to prerenal etiology with [id number] high-dose paracentesis and almost 12 L fluid removal within a week, high-dose diuretics and fluid r estriction. Unlikely acute hepatorenal syndrome. --start on Sodium bicarbonate drip @ 75 ml/h, continue to monitor kidney function, electrolyte. Monitor respiratory status with large left sided pleural effusion. If kidney function continues to worsen, would consider starting on Octreotide and albumin --Encourage p.o. intake, avoid fluid restriction for now. --on midodrine 10 mg 3 times daily Admission and Anticipated Discharge Date Admission Date: February 01, 2024 Stacie Hooper was seen and evaluated this morning. She was comfortable, denied any symptoms.Reports decent appetite and po intake. UO has been low. K 5.1. Kidney function continues to worsen, cr 4.4. BP remains low. Review of Systems Review of Systems: Detailed review of system was done and pertinent positives and negatives were mentioned above. Physical Exam Constitutional: WD/WN, vitals as above + ill appearing; no acute distress Eyes: + anicteric sclerae Neck: normal visual inspection Respiratory: no respiratory distress Auscultation: lungs clear to auscultation bilaterally Cardiovascular: Rate/Rhythm: regular rate and regular rhythm Heart Sounds: normal S1 and normal S2 Extremities: no edema Gastrointestinal (Abdomen): Inspection/Auscultation: abdomen normal to inspection Percussion/Palpation: abdomen soft; abdomen nontender Musculoskeletal: Extremities: extremities normal to inspection Skin: no rashes, warm and dry Neurologic: no focal motor deficits Psychiatric: Orientation: alert and oriented x 3 Affect: euthymic affect Results & Data Vital Signs (Past 12 Hours) Vital Signs Temp Pulse Pulse Resp BP BP Pulse Ox 02/02/24 08:00 02/02/24 08:00 71 02/02/24 07:31 91/56 L 02/02/24 07:29 36.4 C L 73 20 78/46 L 100 02/02/24 03:00 36.4 C L 85 24 85/47 L 96 02/02/24 00:59 36.3 C L 81 26 H 91/50 L 94 02/02/24 00:05 36.3 C L 82 26 H 87/51 L 95 02/01/24 23:01 36.4 C L 78 28 H 82/45 L 95 02/01/24 22:15 36.4 C L 80 28 H 82/41 L 94 02/01/24 22:11 80 O2 Del Method O2 Flow Rate 02/02/24 08:00 Nasal Cannula 2 02/02/24 08:00 02/02/24 07:31 02/02/24 07:29 Nasal Cannula 2 02/02/24 03:00 Nasal Cannula 2 02/02/24 00:59 Nasal Cannula 2 02/02/24 00:05 Nasal Cannula 2 02/01/24 23:01 Nasal Cannula 2 02/01/24 22:15 Nasal Cannula 2 02/01/24 22:11 PG Care Time/CCT Total # of Minutes Spent Total Time Spent with Patient: Total time spent is greater than 50% in coordination of care (as documented) at patient's floor/unit and/or counseling patient: Coding Level of Care Code 57027 SUB INP/OBS CARE 2/35MIN Diagnoses Acute kidney injury superimposed on chronic kidney disease N17.9; N18.9 Acute hyperkalemia E87.5 Iron deficiency anemia D50.9 Proteinuria R80.9 OR[place]O (nonalcoholic steatohepatitis) K75.81 Absent kidney, acquired Z90.5
[2024-02-02 10:31] LABS: BUN Creatinine Ratio 10.3 (10-20); Calcium 8.3 mg/dl (8.6-10.3); Creatinine Clr Calc Pharmacy 14.1 ml/min; Potassium 5.2 mmol/L (3.5-5.1)
[2024-02-02] MEDS: SODIUM BICARBONATE 8.4% 75 MEQ in SODIUM CHLORIDE 0.45 % 1,000 ML IV SCH (11:09)
[2024-02-02] MEDS: SODIUM BICARBONATE IV SCH (11:25)
[2024-02-02] MEDS: SODIUM CHLORIDE 0.9% IV SCH (11:25)
[2024-02-02] MEDS: PANTOprazole 40 MG TAB PO SCH (12:00)
--- NOTE | 2024-02-02 15:18 | Hospitalist Progress Note ---
Date of Service February 02, 2024 Assessment & Plan (1) Acute kidney injury superimposed on chronic kidney disease: Plan: In setting of recent [id number] paracentesis with extensive fluid drainage with continued diuretic use - Suspect ATN from prerenal azotemia Patient was given IV fluids with no improvement Not making urine today Nephrology on board Started the patient on a bicarb drip as worsening metabolic acidosis Concern for fluid overload leading to respiratory failure with ongoing hydration and no urine output (2) Hyperkalemia: Plan: Acute and multifactorial in setting of acute renal failure and continued potassium supplement use + potassium sparing diuretics - Treated with multiple medications in the ED as noted in HPI - Discontinued potassium supplements and spironolactone Nephrology on board (3) Pleural effusion on left: Plan: Chest x-ray on 01/31 showed cardiomegaly with pulmonary vascular congestion as well as large left pleural effusion Patient is getting increasingly tachypneic Consult pulmonology. Spoke to Dr. Christianson who is aware of the consult Low threshold for ICU transfer since no urine output despite IV hydration and increasing respiratory rate (4) Cirrhosis of liver: Plan: Chronic secondary to [place] with hepatocellular CA s/p paracentesis on 01/22 and 01/30 - Monitor daily weights and I/O qshift - Hold diuretics as outlined above Spoke to the patient and family in detail about CODE STATUS. The family (niece Babita and nephew Dariusz) is reasonable and understanding of her grim prognosis but the patient seems to be afraid to change her CODE STATUS. (5) Type 2 diabetes mellitus with obesity: Plan: Chronic - Last a1c 5.2% in October 2023 - Currently appears to be on mixed 70/30 insulin -Continue: - Lantus 10 units BID - Lispro CF 40 and CR 14 - Monitor accuchecks ac and hs - Hold Metformin d/t renal failure Plan Additional stable medical problems: 1. History of breast CA - continue anastrazole 2. ABDELRAHMAN - H/H stable. continue FeSO4 supplementation, repeat CBC in AM, had recent iron infusion 3. GERD - continue PPI, change to protonix per hospital formulary 4. HLD - continue simvastatin Admission and Anticipated Discharge Date Admission Date: February 01, 2024 Subjective Met with the patient twice today. She keeps saying that her breathing is not worse but she is visibly more tachypneic. Explained to her in detail about her clinical condition and my concerns of deterioration. I explained to her that she has liver failure due to [place] cirrhosis, hepatocellular carcinoma, now has renal failure, not making urine. My concern is that we are giving her fluids and if she does not urinate, her lungs will follow-up with the fluid. She is not ready to change her CODE STATUS to DNR/DNI. Nisteven Jc and nephew Dariusz are in the room, accompanying patient. They understand the clinical scenario. Review of Systems Review of Systems: All systems reviewed & are unremarkable except as noted in Subjective Physical Exam Physical Exam: General: Awake, conversant Heart: S1, S2/regular rate and rhythm, no murmur rubs or gallops Lungs: Diminished breath sound at the left base. Tachypneic. Increased effort. Abdomen: Soft/nontender/distended with shifting dullness. No hepatosplenomegaly Extremities: No clubbing/cyanosis. Trace bilateral edema Behavior: Appropriate, cooperative Results & Data Results & Data Vital Signs (Past 12 Hours) Vital Signs Temp Pulse Pulse Resp BP BP Pulse Ox 02/02/24 14:33 61 02/02/24 11:28 36.3 C L 76 18 87/45 L 102/55 L 90 02/02/24 08:00 02/02/24 08:00 71 02/02/24 07:31 91/56 L 02/02/24 07:29 36.4 C L 73 20 78/46 L 100 O2 Del Method O2 Flow Rate 02/02/24 14:33 02/02/24 11:28 Nasal Cannula 2 02/02/24 08:00 Nasal Cannula 2 02/02/24 08:00 02/02/24 07:31 02/02/24 07:29 Nasal Cannula 2 Laboratory Results Abnormal lab results 02/01/24 02/01/24 02/01/24 Range/Units 15:24 17:53 19:50 RBC (4.20-5.40) M/uL Hgb (12.0-16.0) g/dl Hct (37.0-47.0) % MCV (80.0-100.0) fL MCH (25.0-34.0) pg RDW Std Deviation (36.4-46.3) fL RDW Coeff of Stiven (11.5-14.5) % Plt Count (130-400) K/uL Lymph # (Auto) (1.20-3.40) K/uL VBG pH (7.36-7.41) VBG pCO2 (38-50) mmHg Sodium 132 L (136-145) mmol/L Potassium 7.0 H* (3.5-5.1) mmol/L Carbon Dioxide 19 L (21-32) mmol/L BUN 44 H (6-23) mg/dl Creatinine 4.28 H D (0.6-1.2) mg/dl BUN/Creatinine Ratio (10-20) Glucose 175 H (70-99(Fasting)) mg/dl POC Glucose 130 H 211 H (70-99) mg/dl Calcium (8.6-10.3) mg/dl Magnesium (1.7-2.4) mg/dl Urine Appearance (Clear) Urine Protein (Negative) Urine Glucose (UA) (Negative) Urine Ketones (Negative) Urine Blood (Negative) Urine Bilirubin (Negative) Ur Leukocyte Esterase (Negative) Urine RBC (Auto) (0-2) /hpf 02/01/24 02/01/24 02/01/24 Range/Units 21:41 21:55 23:27 RBC (4.20-5.40) M/uL Hgb (12.0-16.0) g/dl Hct (37.0-47.0) % MCV (80.0-100.0) fL MCH (25.0-34.0) pg RDW Std Deviation (36.4-46.3) fL RDW Coeff of Stiven (11.5-14.5) % Plt Count (130-400) K/uL Lymph # (Auto) (1.20-3.40) K/uL VBG pH 7.35 L (7.36-7.41) VBG pCO2 34 L (38-50) mmHg Sodium 133 L (136-145) mmol/L Potassium 6.3 H* (3.5-5.1) mmol/L Carbon Dioxide 20 L (21-32) mmol/L BUN 47 H (6-23) mg/dl Creatinine 4.54 H* (0.6-1.2) mg/dl BUN/Creatinine Ratio (02-03) Glucose 144 H (70-99(Fasting)) mg/dl POC Glucose 206 H (70-99) mg/dl Calcium 8.5 L (8.6-10.3) mg/dl Magnesium (1.7-2.4) mg/dl Urine Appearance Turbid A (Clear) Urine Protein 2+ H (Negative) Urine Glucose (UA) Trace H (Negative) Urine Ketones Trace H (Negative) Urine Blood 3+ H (Negative) Urine Bilirubin 1+ H (Negative) Ur Leukocyte Esterase 1+ H (Negative) Urine RBC (Auto) >20 H (0-2) /hpf 02/02/24 02/02/24 02/02/24 Range/Units 02:33 05:24 06:41 RBC 2.25 L (4.20-5.40) M/uL Hgb 7.9 L (12.0-16.0) g/dl Hct 23.8 L (37.0-47.0) % MCV 105.8 H (80.0-100.0) fL MCH 35.1 H (25.0-34.0) pg RDW Std Deviation 74.7 H (36.4-46.3) fL RDW Coeff of Stiven 19.3 H (11.5-14.5) % Plt Count 37 L (130-400) K/uL Lymph # (Auto) 0.80 L (1.20-3.40) K/uL VBG pH 7.34 L (7.36-7.41) VBG pCO2 33 L (38-50) mmHg Sodium 132 L 133 L (136-145) mmol/L Potassium 5.6 H (3.5-5.1) mmol/L Carbon Dioxide 20 L (21-32) mmol/L BUN 44 H 43 H (6-23) mg/dl Creatinine 4.43 H 4.39 H (0.6-1.2) mg/dl BUN/Creatinine Ratio 9.9 L 9.8 L (10-20) Glucose 167 H 114 H (70-99(Fasting)) mg/dl POC Glucose 180 H (70-99) mg/dl Calcium 8.3 L 8.3 L (8.6-10.3) mg/dl Magnesium 1.2 L (1.7-2.4) mg/dl Urine Appearance (Clear) Urine Protein (Negative) Urine Glucose (UA) (Negative) Urine Ketones (Negative) Urine Blood (Negative) Urine Bilirubin (Negative) Ur Leukocyte Esterase (Negative) Urine RBC (Auto) (0-2) /hpf 02/02/24 02/02/24 02/02/24 Range/Units 07:14 09:46 09:50 RBC (4.20-5.40) M/uL Hgb (12.0-16.0) g/dl Hct (37.0-47.0) % MCV (80.0-100.0) fL MCH (25.0-34.0) pg RDW Std Deviation (36.4-46.3) fL RDW Coeff of Stiven (11.5-14.5) % Plt Count (130-400) K/uL Lymph # (Auto) (1.20-3.40) K/uL VBG pH 7.30 L (7.36-7.41) VBG pCO2 (38-50) mmHg Sodium 131 L (136-145) mmol/L Potassium 5.2 H (3.5-5.1) mmol/L Carbon Dioxide (21-32) mmol/L BUN 47 H (6-23) mg/dl Creatinine 4.58 H* (0.6-1.2) mg/dl BUN/Creatinine Ratio (10-20) Glucose 205 H (70-99(Fasting)) mg/dl POC Glucose 117 H (70-99) mg/dl Calcium 8.3 L (8.6-10.3) mg/dl Magnesium (1.7-2.4) mg/dl Urine Appearance (Clear) Urine Protein (Negative) Urine Glucose (UA) (Negative) Urine Ketones (Negative) Urine Blood (Negative) Urine Bilirubin (Negative) Ur Leukocyte Esterase (Negative) Urine RBC (Auto) (0-2) /hpf 02/02/24 Range/Units 11:33 RBC (4.20-5.40) M/uL Hgb (12.0-16.0) g/dl Hct (37.0-47.0) % MCV (80.0-100.0) fL MCH (25.0-34.0) pg RDW Std Deviation (36.4-46.3) fL RDW Coeff of Stiven (11.5-14.5) % Plt Count (130-400) K/uL Lymph # (Auto) (1.20-3.40) K/uL VBG pH (7.36-7.41) VBG pCO2 (38-50) mmHg Sodium (136-145) mmol/L Potassium (3.5-5.1) mmol/L Carbon Dioxide (21-32) mmol/L BUN (6-23) mg/dl Creatinine (0.6-1.2) mg/dl BUN/Creatinine Ratio (10-20) Glucose (70-99(Fasting)) mg/dl POC Glucose 189 H (70-99) mg/dl Calcium (8.6-10.3) mg/dl Magnesium (1.7-2.4) mg/dl Urine Appearance (Clear) Urine Protein (Negative) Urine Glucose (UA) (Negative) Urine Ketones (Negative) Urine Blood (Negative) Urine Bilirubin (Negative) Ur Leukocyte Esterase (Negative) Urine RBC (Auto) (0-2) /hpf Diagnostic Findings Chest X-Ray 02/01/24 22:25 XR chest 1V portable HISTORY: 73 years-old Female shortness of breath COMPARISON: 01/02/2024 TECHNIQUE: AP view of the chest FINDINGS: Cardiac silhouette is enlarged. Pulmonary vascular congestion with interstitial coarsening. Probable trace right pleural effusion. No pneumothorax. There is a large layering and multiloculated left pleural effusion which is stable to increased in size from prior with left lung volume loss/consolidation. Sigmoidal scoliosis of the spine. IMPRESSION: 1. Cardiomegaly with pulmonary vascular congestion. 2. Large left pleural effusion with left lung volume loss has mildly progressed from the January 02, 2024 exam. ACT 112: Negative or not required by law. The above report was generated using voice recognition software. It may contain grammatical, syntax or spelling errors. Electronically signed by: Claude Reese M.D. 02/02/2024 7:28 AM PG Care Time/CCT Total # of Minutes Spent Total Time Spent with Patient: Total time spent is greater than 50% in coordination of care (as documented) at patient's floor/unit and/or counseling patient: Coding Level of Care Code 50241 SUB INP/OBS CARE 2/35MIN Diagnoses Acute kidney injury superimposed on chronic kidney disease N17.9; N18.9 Hyperkalemia E87.5 Pleural effusion on left J90 Cirrhosis of liver K74.60 Type 2 diabetes mellitus with obesity E11.69; E66.9
[2024-02-02 15:25] LABS: Base Excess VBG -3.1 mEq/L; HCO3 VBG 22 mmol/L; PCO2 VBG 39 mmHg (38-50); PO2 VBG 39 mmHg; pH VBG 7.36 (7.36-7.41)
--- NOTE | 2024-02-02 15:43 | Pulmonary Consultation ---
Date of Consultation February 02, 2024 Assessment & Plan (1) Pleural effusion: (2) Hypoxemia: Plan Impression: 73-year-old female with hepatocellular carcinoma and cirrhosis due to [place] with acute renal failure. Her respiratory status is stable and she does not require any respiratory adjuvants currently. She has a large pleural effusion which may be aggravating her respiratory symptoms but she declines intervention currently. Recommendations: 1. Pleural effusion: Had a long discussion with the patient as well as with her family at bedside. Advised them that we could pursue repeat thoracentesis or chest tube placement to see if this palliated some of her symptoms. She states the previous procedures were quite painful and she does not want to pursue additional invasive procedures especially she states her breathing is fine currently. I did advise her that these procedures would only temporize her symptoms as the fluid would be likely to return if we are unable to address the underlying cause. 2. Hypoxemia: Secondary to #1 as well as vascular congestion. Working on diuresis. Ultimately management per nephrology. If the patient progresses to need renal replacement therapy, she is a poor candidate given multiple medical comorbidities. 3. End-of-life issues: Had long discussion with patient and family members at bedside. Advised him that intubation mechanical ventilation would not result in improved quality of life and it would be unlikely that the patient would be able to return home if she were to pursue these interventions. Regardless, she is not currently in need of critical care monitoring or respiratory adjuvants including CPAP, BiPAP, high flow oxygen, or mechanical ventilation. The family appears to have appropriate insight and have taken it under consideration. They will readdress her CODE STATUS once other family members arrive this evening but are leaning towards DNR/DNI status. This point in time, the patient does not require any pulmonary intervention. Pulmonary will sign off. Feel free to contact us with additional questions or concerns History of Present Illness Attending Physician: Joseph Arevalo MD History of Present Illness Asked by hospitalist to evaluate this patient with shortness of breath and pleural effusion. History is obtained from discussion with the patient as well as review the electronic medical record. The patient is a 73-year-old female with a history of cirrhosis and hepatocellular carcinoma who presented to the emergency room yesterday. She was referred due to abnormal labs. She has undergone paracenteses in the past for symptomatic ascites. She was noted to have acute renal failure. Nephrology consultation was obtained. She has not made significant urine is been started on a bicarb drip due to continued acidosis. Hospitalist was concerned about need for intubation mechanical ventilation and still pulmonary consult was entered. I assessed the patient immediately after being contacted by the hospitalist. She is currently awake alert conversant and in sitting up at the bedside on 2 L nasal cannula with oxygen saturations of about 94%. She is in no respiratory distress. She has had thoracentesis in the past and has had unclear benefit from them. Her last procedure was somewhat painful and she would like to avoid any additional painful or invasive procedures if possible. The patient and her family are considering options moving forward. She does not want to be kept alive in a vegetative state. They understand that if she were to clinically worsen and require intubation mechanical ventilation she would be sedated and unable to participate in the decision making process Allergies Allergy/AdvReac Type Severity Reaction Status Date / Time oxycodone AdvReac Mild NAUSEA Verified 01/12/24 14:56 WITH EMESIS Home Medications Medication Instructions Recorded Confirmed Type acetaminophen 500 mg tablet 1,000 mg PO BID PRN Pain 02/03/22 02/01/24 History mecobalamin (vitamin B12) 1,000 1,000 mcg PO QAM 02/03/22 02/01/24 History mcg chewable tablet anastrozole 1 mg tablet 1 mg PO QAM 10/05/22 02/01/24 History propranolol 20 mg tablet 20 mg PO QAM #30 tabs 04/12/23 02/01/24 Rx ergocalciferol (vitamin D2) 1,250 50,000 unit PO MONTHLY #12 caps 04/18/23 02/01/24 Rx mcg (50,000 unit) capsule blood sugar diagnostic #200 ea 07/04/23 02/01/24 Rx metformin 500 mg tablet 500 mg PO BID #180 tabs 07/04/23 02/01/24 Rx furosemide 20 mg tablet (Lasix) 20 mg PO . ON HOLD 08/29/23 02/01/24 History insulin aspar prt-insulin aspart 20 unit subcut BID 11/30/23 02/01/24 History 100 unit/mL (70-30) subcutaneous soln (Novolog Mix 70-30 U-100 Insuln) diclofenac sodium 1 % topical gel 2 g topical QID PRN Other 01/01/24 02/01/24 History (Voltaren Arthritis Pain) potassium chloride 10 mEq 20 meq PO .ON HOLD 01/01/24 02/01/24 History capsule,extended release ferrous sulfate 325 mg (65 mg 325 mg PO .ON HOLD 02/01/24 02/01/24 History iron) tablet (FeroSul) omeprazole 20 mg tablet,delayed 20 mg PO QDL 02/01/24 02/01/24 History release simvastatin 20 mg tablet 20 mg PO HS 02/01/24 02/01/24 History spironolactone 100 mg tablet 100 mg PO .ON HOLD 02/01/24 02/01/24 History Patient History Medical History Elevated troponin Fall at home Hypoglycemia associated with type 2 diabetes mellitus History of kidney stones Breast cancer, left breast Biopsy on 04/28/22>completed radiation August 2022 Thrombocytopenia Platelet counts under 100 since 2015. Due to cirrhosis, Vit B12 def, and iron def per records- follows with heme Hyperlipidemia Sleep apnea cpap Surgical History Status post left breast lumpectomy 06/06/22 Dr. Gee Amaro History of esophagogastroduodenoscopy (EGD) Status post right knee replacement History of cataract surgery R/L Status post cystoscopy with ureteral stent placement History of anesthesia reaction "terrible headache from spinal" + with previous colonoscopy>"woke up in middle of procedure and could feel pain" History of lithotripsy History of colonoscopy History of nephrectomy, unilateral left History of tooth extraction all teeth removed History of surgical procedure on eye proper using laser left Family History Father , 67yo Myocardial infarction Stroke Diabetes Mother , 79yo History of kidney cancer Diabetes Sister , 32yo Aspiration into airway Other No family history of adverse response to anesthesia Denies family history of Prostate cancer Breast cancer Colorectal cancer Social History Smoking Status: Never smoker Tobacco Type: Cigarettes Second Hand Exposure: No; Do You Dip or Chew Tobacco: No; Hx Alcohol Use: No Hx Substance Use: No Preferred Language: Pakistani Communication Ability: Effective Visual Impairment: No Limitations Hearing Ability: Normal Office Manager Executive Assistant Required: No Beliefs That Will Affect Care: None marital status: Single Current Living Situation: Alone current occupational status: retired 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 No additions or deletions Physical Exam Constitutional: WD/WN, vitals as above + ill appearing; no acute distress Eyes: + anicteric sclerae Neck: normal visual inspection Respiratory: no respiratory distress Auscultation: lungs clear to auscultation bilaterally Cardiovascular: Rate/Rhythm: regular rate and regular rhythm Heart Sounds: normal S1 and normal S2 Extremities: no edema Gastrointestinal (Abdomen): Inspection/Auscultation: abdomen normal to inspection Percussion/Palpation: abdomen soft; abdomen nontender Musculoskeletal: Extremities: extremities normal to inspection Skin: no rashes, warm and dry Neurologic: no focal motor deficits Psychiatric: Orientation: alert and oriented x 3 Affect: euthymic affect Results & Data Results & Data Vital Signs (Past 12 Hours) Vital Signs Temp Pulse Pulse Resp BP BP Pulse Ox 02/02/24 15:12 36.3 C L 72 18 107/55 L 94/58 L 94 02/02/24 14:33 61 02/02/24 11:28 36.3 C L 76 18 87/45 L 102/55 L 90 02/02/24 08:00 02/02/24 08:00 71 02/02/24 07:31 91/56 L 02/02/24 07:29 36.4 C L 73 20 78/46 L 100 O2 Del Method O2 Flow Rate 02/02/24 15:12 Room Air 02/02/24 14:33 02/02/24 11:28 Nasal Cannula 2 02/02/24 08:00 Nasal Cannula 2 02/02/24 08:00 02/02/24 07:31 02/02/24 07:29 Nasal Cannula 2 Critical Care Results & Data Vital Signs (Past 12 Hours) Vital Signs Temp Pulse Pulse Resp BP BP Pulse Ox 02/02/24 15:12 36.3 C L 72 18 107/55 L 94/58 L 94 02/02/24 14:33 61 02/02/24 11:28 36.3 C L 76 18 87/45 L 102/55 L 90 02/02/24 08:00 02/02/24 08:00 71 02/02/24 07:31 91/56 L 02/02/24 07:29 36.4 C L 73 20 78/46 L 100 O2 Del Method O2 Flow Rate 02/02/24 15:12 Room Air 02/02/24 14:33 02/02/24 11:28 Nasal Cannula 2 02/02/24 08:00 Nasal Cannula 2 02/02/24 08:00 02/02/24 07:31 02/02/24 07:29 Nasal Cannula 2 Lab & Micro Results (Past 24 Hours) RBC 2.25 M/uL (4.20-5.40) L 02/02/24 WBC 5.53 K/ul (4.8-10.8) 02/02/24 Hgb 7.9 g/dl (12.0-16.0) L 02/02/24 Hct 23.8 % (37.0-47.0) L 02/02/24 MCV 105.8 fL (80.0-100.0) H 02/02/24 MCH 35.1 pg (25.0-34.0) H 02/02/24 MCHC 33.2 g/dL (32.0-36.0) 02/02/24 RDW Standard Deviation 74.7 fL (36.4-46.3) H 02/02/24 RDW Coefficient of Variation 19.3 % (11.5-14.5) H 02/02/24 Plt Count 37 K/uL (130-400) L 02/02/24 MPV 9.7 fL (9.4-12.4) 02/02/24 Neutrophils (%) (Auto) 74.2 % 02/02/24 Lymphocytes (%) (Auto) 14.5 % 02/02/24 Monocytes # (Auto) 0.57 K/uL (0.11-0.59) 02/02/24 Eosinophils # (Auto) 0.03 K/uL (0.00-0.50) 02/02/24 Immature Granulocyte % (Auto) 0.5 % 02/02/24 Neutrophils # (Auto) 4.10 K/uL (1.40-6.50) 02/02/24 Lymphocytes # (Auto) 0.80 K/uL (1.20-3.40) L 02/02/24 Monocytes # (Auto) 0.57 K/uL (0.11-0.59) 02/02/24 Eosinophils # (Auto) 0.03 K/uL (0.00-0.50) 02/02/24 Basophils # (Auto) 0.00 K/uL (0.00-0.20) 02/02/24 Immature Granulocyte # (Auto) 0.03 K/uL (0.01-0.20) 4 Polychromasia 1+ 02/02/24 Na 131 mmol/L (136-145) L 02/02/24 K 5.2 mmol/L (3.5-5.1) H 02/02/24 Cl 99 mmol/L (98-107) 02/02/24 CO2 22 mmol/L (21-32) 02/02/24 Anion Gap 10 (3-11) 02/02/24 BUN 47 mg/dl (6-23) H 02/02/24 Creatinine 4.58 mg/dl (0.6-1.2) H* 02/02/24 BUN/Creatinine Ratio 10.3 (10-20) 02/02/24 Glu 205 mg/dl (70-99(Fasting)) H 02/02/24 Ca 8.3 mg/dl (8.6-10.3) L 02/02/24 Phosphorus Level 4.4 mg/dl (2.5-4.9) 02/02/24 Mg 1.2 mg/dl (1.7-2.4) L 02/02/24 02:33 Calcium Level 8.3 mg/dl (8.6-10.3) L 02/02/24 09:46 Venous Blood pH 7.36 (7.36-7.41) 02/02/24 15:11 Venous Blood Partial Pressure CO2 39 mmHg (38-50) 02/02/24 15:1 1 Venous Blood Partial Pressure O2 39 mmHg 02/02/24 15:11 Venous Blood HCO3 22 mmol/L 02/02/24 15:11 Venous Blood Base Excess -3.1 mEq/L 02/02/24 15:11 Venous Blood Oxygen Saturation 67.0 % 02/02/24 15:11 Diagnostic Findings (Past 24 Hours) Chest X-Ray 02/01/24 22:25 XR chest 1V portable HISTORY: 73 years-old Female shortness of breath COMPARISON: 01/02/2024 TECHNIQUE: AP view of the chest FINDINGS: Cardiac silhouette is enlarged. Pulmonary vascular congestion with interstitial coarsening. Probable trace right pleural effusion. No pneumothorax. There is a large layering and multiloculated left pleural effusion which is stable to increased in size from prior with left lung volume loss/consolidation. Sigmoidal scoliosis of the spine. IMPRESSION: 1. Cardiomegaly with pulmonary vascular congestion. 2. Large left pleural effusion with left lung volume loss has mildly progressed from the January 02, 2024 exam. ACT 112: Negative or not required by law. The above report was generated using voice recognition software. It may contain grammatical, syntax or spelling errors. Electronically signed by: Claude Reese M.D. 02/02/2024 7:28 AM I & O Totals 24 Hours 02/01/24 02/02/24 02/03/24 06:59 06:59 06:59 Intake Total 2635 / 2635 998.334 / 998.334 Output Total 75 / 75 20 / 20 Balance 2560 / 2560 978.334 / 978.334 Cumulative 02/01/24 08:30 thru 02/02/24 11:00 Intake Total 3633.334 Output Total 95 Balance 3538.334 RT Ventilator Mngmt (Last Documented) Ventilator Ordered Settings Respiratory Rate 18 02/02/24 15:12 Ventilator - PT Measurements Respiratory Rate 18 PG Care Time/CCT Total # of Minutes Spent Total Time Spent with Patient: Total time spent is greater than 50% in coordination of care (as documented) at patient's floor/unit and/or counseling patient: Coding Level of Care Code 13987 INT INP/OBS CARE 3/75MIN Diagnoses Pleural effusion J90 Hypoxemia R09.02
[2024-02-03 08:05] LABS: Hematocrit (blood only) 23.2 % (37.0-47.0); Hemoglobin 7.8 g/dl (12.0-16.0); Mean Corpuscular Hgb Conc 33.6 g/dL (32.0-36.0); Mean Platelet Volume 10.2 fL (9.4-12.4); Platelet Count 42 K/uL (130-400); RDW Coefficient of Variation 19.1 % (11.5-14.5); Red Blood Count 2.23 M/uL (4.20-5.40); White Blood Count 5.64 K/ul (4.8-10.8)
[2024-02-03 08:19] LABS: BUN Creatinine Ratio 10.1 (10-20); Calcium 8.2 mg/dl (8.6-10.3); Creatinine Clr Calc Pharmacy 13.1 ml/min; Potassium 5.4 mmol/L (3.5-5.1)
--- NOTE | 2024-02-03 12:43 | Nephrology Progress Note ---
Date of Service February 03, 2024 Assessment & Plan (1) Acute kidney injury superimposed on chronic kidney disease: Plan: CKD IIIa at baseline (creatinine ~1.4 mg/dL). Followed by Dr. Stewart. h/o RCCA s/p L laparoscopic nephrectomy in 2007. All margins were negative for cancer. SHIREEN attributed to ATN and decreased effective arterial volume. Clinical presentation consistent with acute hepatorenal syndrome. Total body water is elevated despite intravascular volume repletion. Unfortunately, there was no improvement in urine output with isotonic volume expansion. HCO3 gtt discontinued due to third spacing of fluids. Rufus remains oliguric and prognosis for renal recovery is very poor. She understands this. Renal replacement therapy was discussed. Unfortunately, I do not think Rufus would tolerate dialysis well due to medical comorbidities, notably liver failure. I would not expect dialysis to offer significant benefits. She also expressed understanding in this regard. She is going to continue to discuss her personal goals of care with family. However, we will not pursue hemodialysis at this time. Hyperkalemia is being managed with low potassium diet and Lokelma. She otherwise does not want any dietary restrictions (which is reasonable). I have added triple therapy with Octreotide, midodrine, and IV albumin. Marinelli remains in place. (2) Acute hyperkalemia: Plan: Remains on low potassium diet and Lokelma. Oliguric. Repeat labs tomorrow AM. I discussed code status and risk for cardiac arrhythmia. Rufus was not ready to change her code status at this time. (3) Absent kidney, acquired: (4) Pleural effusion: (5) Hepatocellular carcinoma: Admission and Anticipated Discharge Date Admission Date: February 01, 2024 Subjective I met with Rufus this morning. I had a follow up meeting with the patient and her niece (Babita) and nephew (Dariusz) this afternoon. We discussed Rufus's prognosis and goals of care. I explained the advanced nature of her kidney dysfunction. I do not anticipate kidney recovery. They expressed understanding. Rufus understands the limitations of dialysis and risks associated with dialysis given her other medical comorbidities. She understands that she could from kidney dysfunction but that dialysis is not likely going to significantly prolong her life expectancy. She agreed that hemodialysis would not be considered part of the care plan. I also discussed the patient's condition and goals of care with Dr. Arevalo and Dr. Christianson. Rufus will continue to discuss her goals of care with her family. She remains very resistant to changing her code status. However, she also mentioned that she would be receptive of the idea of transitioning home with hospice. She would ideally like to be at home with family. Otherwise, she denies significant dyspnea at this time. She reported some mild irritation from the Marinelli catheter. No fevers or chills. Appetite is poor. Review of Systems Review of Systems: All systems reviewed & are unremarkable except as noted in HPI & below Physical Exam Constitutional: + frail appearing; no acute distress Eyes: + anicteric sclerae ENMT: Mouth: oral mucous membranes not dry Neck: normal visual inspection and trachea midline Respiratory: + tachypneic; no respiratory distress Auscultation: lungs clear to auscultation bilaterally Cardiovascular: Rate/Rhythm: regular rate and regular rhythm Heart Sounds: normal S1 and normal S2 Extremities: + pedal edema Musculoskeletal: Extremities: extremities normal to inspection Skin: no jaundice Neurologic: no focal motor deficits Psychiatric: Orientation: alert and oriented x 3 Affect: euthymic affect Genitourinary: Marinelli with small amount of concentrated urine Results & Data Vital Signs (Past 12 Hours) Vital Signs Temp Pulse Pulse Resp BP BP Pulse Ox 02/03/24 11:21 36.4 C L 76 20 99/61 L 89/50 L 98 02/03/24 08:00 02/03/24 07:20 36.7 C 71 18 93/58 L 96/58 L 98 02/03/24 07:11 75 02/03/24 02:40 36.5 C 73 18 95/45 L 108/55 L 95 O2 Del Method O2 Flow Rate 02/03/24 11:21 Nasal Cannula 2 02/03/24 08:00 Nasal Cannula 2 02/03/24 07:20 Room Air 02/03/24 07:11 02/03/24 02:40 Nasal Cannula Laboratory Results Laboratory Results - last 24 hr 02/02/24 02/02/24 02/02/24 15:11 16:09 20:09 WBC RBC Hgb Hct MCV MCH MCHC RDW Std Deviation RDW Coeff of Stiven Plt Count MPV VBG pH 7.36 VBG pCO2 39 VBG pO2 39 VBG HCO3 22 VBG O2 Saturation 67.0 VBG Base Excess -3.1 Sodium Potassium Chloride Carbon Dioxide Anion Gap BUN Creatinine Est Cr Clr Drug Dosing eGFR BUN/Creatinine Ratio Glucose POC Glucose 121 H 136 H Calcium 02/03/24 02/03/24 02/03/24 07:11 07:44 11:11 WBC 5.64 RBC 2.23 L Hgb 7.8 L Hct 23.2 L MCV 104.0 H MCH 35.0 H MCHC 33.6 RDW Std Deviation 72.0 H RDW Coeff of Stiven 19.1 H Plt Count 42 L MPV 10.2 VBG pH VBG pCO2 VBG pO2 VBG HCO3 VBG O2 Saturation VBG Base Excess Sodium 131 L Potassium 5.4 H Chloride 98 Carbon Dioxide 23 Anion Gap 10 BUN 50 H Creatinine 4.95 H* D Est Cr Clr Drug Dosing 13.1 eGFR 8.78 BUN/Creatinine Ratio 10.1 Glucose 119 H POC Glucose 121 H 167 H Calcium 8.2 L PG Care Time/CCT Total # of Minutes Spent Total Time Spent with Patient: Total time spent is greater than 50% in coordination of care (as documented) at patient's floor/unit and/or counseling patient: Coding Level of Care Code 31394 SUB INP/OBS CARE 3/50MIN Diagnoses Acute kidney injury superimposed on chronic kidney disease N17.9; N18.9 Acute hyperkalemia E87.5 Absent kidney, acquired Z90.5 Pleural effusion J90 Hepatocellular carcinoma C22.0
--- NOTE | 2024-02-03 13:38 | Hospitalist Progress Note ---
Date of Service February 03, 2024 Assessment & Plan (1) Acute kidney injury superimposed on chronic kidney disease: Plan: In setting of recent [id number] paracentesis with extensive fluid drainage with continued diuretic use Initially suspected to be ATN from prerenal azotemia Patient was given IV fluids with no improvement. Renal function continues to get worse Nephrology on board Clinical presentation is not consistent with acute hepatorenal syndrome. Nephrology had a conversation with the patient. Per nephrology notes, she was told that she would not tolerate dialysis and thus we will not pursue dialysis at this time. She has been started on octreotide, midodrine and IV albumin Goals of care discussion will be continued. For now no hemodialysis. She is reluctant to change her CODE STATUS at this time even though she has been told that her prognosis is poor (2) Hyperkalemia: Plan: Due to worsening renal function Low potassium diet and Lokelma will be continued Oliguric Nephrology on board (3) Pleural effusion on left: Plan: Chest x-ray on 01/31 showed cardiomegaly with pulmonary vascular congestion as w ell as large left pleural effusion Patient is getting increasingly tachypneic Consult pulmonology. Spoke to Dr. Christianson who is aware of the consult Low threshold for ICU transfer since no urine output despite IV hydration and increasing respiratory rate (4) Cirrhosis of liver: Plan: Chronic secondary to [place] with hepatocellular CA s/p paracentesis on 01/22 and 01/30 - Monitor daily weights and I/O qshift - Hold diuretics as outlined above Spoke to the patient and family in detail about CODE STATUS on 02/01 and 02/02. The family (niece Babita and nephew Dariusz) is reasonable and understanding of her grim prognosis on 02/01 but the patient seems to be afraid to change her CODE STATUS. (5) Type 2 diabetes mellitus with obesity: Plan: Chronic - Last a1c 5.2% in October 2023 - Currently appears to be on mixed 70/30 insulin -Continue current insulin regimen - Monitor accuchecks ac and hs - Hold Metformin d/t renal failure Plan Additional stable medical problems: 1. History of breast CA - continue anastrazole 2. ABDELRAHMAN - H/H stable. continue FeSO4 supplementation, repeat CBC in AM, had recent iron infusion 3. GERD - continue PPI, change to protonix per hospital formulary 4. HLD - continue simvastatin Admission and Anticipated Discharge Date Admission Date: February 01, 2024 Subjective Patient was seen and examined at 9:45 AM. Overnight, she has not made much urine. Her breathing is not worse today. She is sitting up at the bedside recliner. During my encounter, she was not accompanied by her family. Review of Systems Review of Systems: All systems reviewed & are unremarkable except as noted in Subjective Physical Exam Physical Exam: General: Awake, conversant Heart: S1, S2/regular rate and rhythm, no murmur rubs or gallops Lungs: Diminished breath sound at the left base. Not tachypneic today. Normal effort Abdomen: Soft/nontender/distended with shifting dullness. No hepatosplenomegaly Extremities: No clubbing/cyanosis. Trace bilateral edema Behavior: Appropriate, cooperative Results & Data Results & Data Vital Signs (Past 12 Hours) Vital Signs Temp Pulse Pulse Resp BP BP Pulse Ox 02/03/24 11:21 36.4 C L 76 20 99/61 L 89/50 L 98 02/03/24 08:00 02/03/24 07:20 36.7 C 71 18 93/58 L 96/58 L 98 02/03/24 07:11 75 02/03/24 02:40 36.5 C 73 18 95/45 L 108/55 L 95 O2 Del Method O2 Flow Rate 02/03/24 11:21 Nasal Cannula 2 02/03/24 08:00 Nasal Cannula 2 02/03/24 07:20 Room Air 02/03/24 07:11 02/03/24 02:40 Nasal Cannula Laboratory Results Abnormal lab results 02/02/24 02/02/24 02/03/24 Range/Units 16:09 20:09 07:11 RBC (4.20-5.40) M/uL Hgb (12.0-16.0) g/dl Hct (37.0-47.0) % MCV (80.0-100.0) fL MCH (25.0-34.0) pg RDW Std Deviation (36.4-46.3) fL RDW Coeff of Stiven (11.5-14.5) % Plt Count (130-400) K/uL Sodium (136-145) mmol/L Potassium (3.5-5.1) mmol/L BUN (6-23) mg/dl Creatinine (0.6-1.2) mg/dl Glucose (70-99(Fasting)) mg/dl POC Glucose 121 H 136 H 121 H (70-99) mg/dl Calcium (8.6-10.3) mg/dl 02/03/24 02/03/24 Range/Units 07:44 11:11 RBC 2.23 L (4.20-5.40) M/uL Hgb 7.8 L (12.0-16.0) g/dl Hct 23.2 L (37.0-47.0) % MCV 104.0 H (80.0-100.0) fL MCH 35.0 H (25.0-34.0) pg RDW Std Deviation 72.0 H (36.4-46.3) fL RDW Coeff of Stiven 19.1 H (11.5-14.5) % Plt Count 42 L (130-400) K/uL Sodium 131 L (136-145) mmol/L Potassium 5.4 H (3.5-5.1) mmol/L BUN 50 H (6-23) mg/dl Creatinine 4.95 H* D (0.6-1.2) mg/dl Glucose 119 H (70-99(Fasting)) mg/dl POC Glucose 167 H (70-99) mg/dl Calcium 8.2 L (8.6-10.3) mg/dl PG Care Time/CCT Total # of Minutes Spent Total Time Spent with Patient: Total time spent is greater than 50% in coordination of care (as documented) at patient's floor/unit and/or counseling patient: Coding Level of Care Code 59576 SUB INP/OBS CARE 2/35MIN Diagnoses Acute kidney injury superimposed on chronic kidney disease N17.9; N18.9 Hyperkalemia E87.5 Pleural effusion on left J90 Cirrhosis of liver K74.60 Type 2 diabetes mellitus with obesity E11.69; E66.9
[2024-02-03] MEDS: OCTREOTIDE ACETATE 100 MCG/ML VIAL SQ SCH (13:56)
[2024-02-03] MEDS: ALBUMIN 25% 25 GM/100 ML VIAL IV SCH (13:56)
[2024-02-04 06:20] LABS: Hematocrit (blood only) 19.9 % (37.0-47.0); Hemoglobin 6.5 g/dl (12.0-16.0); Mean Corpuscular Hemoglobin 34.4 pg (25.0-34.0); Mean Corpuscular Hgb Conc 32.7 g/dL (32.0-36.0); Mean Corpuscular Volume 105.3 fL (80.0-100.0); Mean Platelet Volume 10.5 fL (9.4-12.4); Platelet Count 25 K/uL (130-400); RDW Coefficient of Variation 18.9 % (11.5-14.5); RDW Standard Deviation 73.6 fL (36.4-46.3); Red Blood Count 1.89 M/uL (4.20-5.40); White Blood Count 2.54 K/ul (4.8-10.8)
[2024-02-04 06:22] LABS: BUN Creatinine Ratio 9.6 (10-20); Calcium 8.4 mg/dl (8.6-10.3); Creatinine Clr Calc Pharmacy 11.3 ml/min
--- NOTE | 2024-02-04 10:43 | Nephrology Progress Note ---
Date of Service February 04, 2024 Assessment & Plan (1) Acute kidney injury superimposed on chronic kidney disease: Plan: CKD IIIa at baseline (creatinine ~1.4 mg/dL). Followed by Dr. Stewart. h/o RCCA s/p L laparoscopic nephrectomy in 2007. Oliguric SHIREEN possibly related to ATN and decreased effective arterial volume versus acute hepatorenal syndrome. Total body water is elevated despite intravascular volume repletion. Unfortunately, there was no improvement in urine output with isotonic volume expansion. Isotonic fluids resulting in increased abdominal ascites and reaccumulation of pleural effusions. Rufus remains oliguric and prognosis for renal recovery is very poor. She understands this. Dialysis will not be considered part of the care plan. Rufus has opted to transition to comfort measures only. Octreotide, albumin, and midodrine will be stopped. Hyperkalemia is being managed with low potassium diet and Lokelma. Marinelli remains in place. I discussed removing but Rufus stated she would prefer to keep the catheter for now for comfort. (2) Acute hyperkalemia: Plan: treated with low potassium diet and Lokelma. Opted to stop monitoring labs and focus on comfort measures. (3) Absent kidney, acquired: (4) Pleural effusion: (5) Hepatocellular carcinoma: (6) Goals of care, counseling/discussion: Admission and Anticipated Discharge Date Admission Date: February 01, 2024 Stacie Hooper was seen and evaluated with a couple of cousins at the bedside. I discussed the plan of care with Dr. Arevalo. Rufus remains oliguric. She states that she otherwise feels well. She denies significant dyspnea. She denies pain. No fevers or chills. She has decided to change her code status to DNR/DNI and transition to comfort measures only. Review of Systems Review of Systems: All systems reviewed & are unremarkable except as noted in HPI & below Physical Exam Constitutional: + frail appearing; no acute distress Eyes: + anicteric sclerae ENMT: Mouth: oral mucous membranes not dry Neck: normal visual inspection and trachea midline Respiratory: no respiratory distress Auscultation: lungs clear to aus cultation bilaterally and + diminished lung sounds Cardiovascular: Rate/Rhythm: regular rate and regular rhythm Heart Sounds: normal S1 and normal S2 Extremities: + pedal edema Musculoskeletal: Extremities: extremities normal to inspection Skin: no jaundice Neurologic: no focal motor deficits Psychiatric: Orientation: alert and oriented x 3 Affect: euthymic affect Results & Data Vital Signs (Past 12 Hours) Vital Signs Temp Pulse Pulse Resp BP BP Pulse Ox 02/04/24 07:34 36.6 C 71 19 91/49 L 96 02/04/24 07:10 02/04/24 07:07 69 02/04/24 02:51 36.5 C 60 18 93/56 L 94 02/03/24 22:39 36.5 C 68 18 90/56 L 95 O2 Del Method O2 Flow Rate 02/04/24 07:34 Nasal Cannula 2 02/04/24 07:10 Nasal Cannula 2 02/04/24 07:07 02/04/24 02:51 Nasal Cannula 2 02/03/24 22:39 Nasal Cannula 2 Laboratory Results Laboratory Results - last 24 hr 02/03/24 02/03/24 02/03/24 11:11 16:14 18:07 WBC RBC Hgb Hct MCV MCH MCHC RDW Std Deviation RDW Coeff of Stiven Plt Count MPV Sodium Potassium Chloride Carbon Dioxide Anion Gap BUN Creatinine Est Cr Clr Drug Dosing eGFR BUN/Creatinine Ratio Glucose POC Glucose 167 H 226 H Calcium Ur Random Sodium 13 02/03/24 02/04/24 02/04/24 20:06 05:36 07:33 WBC 2.54 L RBC 1.89 L Hgb 6.5 L* Hct 19.9 L* MCV 105.3 H MCH 34.4 H MCHC 32.7 RDW Std Deviation 73.6 H RDW Coeff of Stiven 18.9 H Plt Count 25 L* MPV 10.5 Sodium 129 L Potassium 5.0 Chloride 96 L Carbon Dioxide 24 Anion Gap 9 BUN 55 H Creatinine 5.72 H* D Est Cr Clr Drug Dosing 11.3 eGFR 7.38 BUN/Creatinine Ratio 9.6 L Glucose 131 H POC Glucose 217 H 128 H Calcium 8.4 L Ur Random Sodium PG Care Time/CCT Total # of Minutes Spent Total Time Spent with Patient: Total time spent is greater than 50% in coordination of care (as documented) at patient's floor/unit and/or counseling patient: Coding Level of Care Code 09986 SUB INP/OBS CARE 3/50MIN Diagnoses Acute kidney injury superimposed on chronic kidney disease N17.9; N18.9 Acute hyperkalemia E87.5 Absent kidney, acquired Z90.5 Pleural effusion J90 Hepatocellular carcinoma C22.0 Goals of care, counseling/discussion Z71.89
--- NOTE | 2024-02-04 12:11 | Hospitalist Progress Note ---
Date of Service February 04, 2024 Assessment & Plan (1) Acute kidney injury superimposed on chronic kidney disease: Plan: In setting of recent [id number] paracentesis with extensive fluid drainage with continued diuretic use Initially suspected to be ATN from prerenal azotemia Patient was given IV fluids with no improvement. Renal function continues to get worse Nephrology on board Clinical presentation is not consistent with acute hepatorenal syndrome. Nephrology had a conversation with the patient. Per nephrology notes, she was told that she would not tolerate dialysis and thus we will not pursue dialysis at this time. No improvement on octreotide, midodrine and IV albumin Goals of care discussion continued today again. She finally stated that she changed her mind about her CODE STATUS. She now wishes to be a DNR/DNI. She wishes to pursue comfort care measures. (2) Hyperkalemia: Plan: Due to worsening renal function Low potassium diet and Lokelma will be continued Oliguric Nephrology on board Comfort measures has been decided on (3) Pleural effusion on left: Plan: Chest x-ray on 01/31 showed cardiomegaly with pulmonary vascular congestion as well as large left pleural effusion Patient is getting increasingly tachypneic Comfort care has been decided on (4) Cirrhosis of liver: Plan: Chronic secondary to [place] with hepatocellular CA s/p paracentesis on 01/22 and 01/30 Comfort care has been decided on. (5) Type 2 diabetes mellitus with obesity: Plan: Chronic - Last a1c 5.2% in October 2023 - Currently appears to be on mixed 70/30 insulin - Hold Metformin d/t renal failure Comfort care has been decided on Plan Additional stable medical problems: 1. History of breast CA - continue anastrazole 2. ABDELRAHMAN - H/H stable. continue FeSO4 supplementation, repeat CBC in AM, had recent iron infusion 3. GERD - continue PPI, change to protonix per hospital formulary 4. HLD - continue simvastatin Spoke to jovon Arzola, on the phone. Informed him about patient's decision on DNR/DNI CODE STATUS and comfort measures only. He felt relieved that she finally made the decision. He has me questions about disposition. I explained that the case assembler will be involved and will help in disposition planning. Discontinue monitor. Discontinue labs. Discontinue Accu-Cheks. Transfer to [facility] for comfort care. Admission and Anticipated Discharge Date Admission Date: February 01, 2024 Subjective Patient was seen and examined at 10:10 AM. She was informed that she did not make any progress with her kidney function. In fact her numbers have deteriorated and she has not had any improvement in her urine output. She said to me that she changed her mind about her CODE STATUS. She wishes to be a DNR/DNI. She also tells me that she wishes to be made comfortable. Her cousin walked into the room and witnessed this conversation. Review of Systems Review of Systems: All systems reviewed & are unremarkable except as noted in Subjective Physical Exam Physical Exam: General: Awake, conversant Heart: S1, S2/regular rate and rhythm, no murmur rubs or gallops Lungs: Diminished breath sound at the left base. Not tachypneic today. Normal effort Abdomen: Soft/nontender/distended with shifting dullness. Extremities: No clubbing/cyanosis. Trace bilateral edema Behavior: Appropriate, cooperative Results & Data Results & Data Vital Signs (Past 12 Hours) Vital Signs Temp Pulse Pulse Resp BP BP Pulse Ox 02/04/24 07:34 36.6 C 71 19 91/49 L 96 02/04/24 07:10 02/04/24 07:07 69 02/04/24 02:51 36.5 C 60 18 93/56 L 94 O2 Del Method O2 Flow Rate 02/04/24 07:34 Nasal Cannula 2 02/04/24 07:10 Nasal Cannula 2 02/04/24 07:07 02/04/24 02:51 Nasal Cannula 2 Laboratory Results Abnormal lab results 02/03/24 02/03/24 02/04/24 Range/Units 16:14 20:06 05:36 WBC 2.54 L (4.8-10.8) K/ul RBC 1.89 L (4.20-5.40) M/uL Hgb 6.5 L* (12.0-16.0) g/dl Hct 19.9 L* (37.0-47.0) % MCV 105.3 H (80.0-100.0) fL MCH 34.4 H (25.0-34.0) pg RDW Std Deviation 73.6 H (36.4-46.3) fL RDW Coeff of Stiven 18.9 H (11.5-14.5) % Plt Count 25 L* (130-400) K/uL Sodium 129 L (136-145) mmol/L Chloride 96 L (98-107) mmol/L BUN 55 H (6-23) mg/dl Creatinine 5.72 H* D (0.6-1.2) mg/dl BUN/Creatinine Ratio 9.6 L (10-20) Glucose 131 H (70-99(Fasting)) mg/dl POC Glucose 226 H 217 H (70-99) mg/dl Calcium 8.4 L (8.6-10.3) mg/dl 02/04/24 Range/Units 07:33 WBC (4.8-10.8) K/ul RBC (4.20-5.40) M/uL Hgb (12.0-16.0) g/dl Hct (37.0-47.0) % MCV (80.0-100.0) fL MCH (25.0-34.0) pg RDW Std Deviation (36.4-46.3) fL RDW Coeff of Stiven (11.5-14.5) % Plt Count (130-400) K/uL Sodium (136-145) mmol/L Chloride (98-107) mmol/L BUN (6-23) mg/dl Creatinine (0.6-1.2) mg/dl BUN/Creatinine Ratio (10-20) Glucose (70-99(Fasting)) mg/dl POC Glucose 128 H (70-99) mg/dl Calcium (8.6-10.3) mg/dl PG Care Time/CCT Total # of Minutes Spent Total Time Spent with Patient: Total time spent is greater than 50% in coordination of care (as documented) at patient's floor/unit and/or counseling patient: Coding Level of Care Code 11774 SUB INP/OBS CARE 2/35MIN Diagnoses Acute kidney injury superimposed on chronic kidney disease N17.9; N18.9 Hyperkalemia E87.5 Pleural effusion on left J90 Cirrhosis of liver K74.60 Type 2 diabetes mellitus with obesity E11.69; E66.9
--- NOTE | 2024-02-05 09:59 | Nephrology Progress Note ---
Date of Service February 05, 2024 Assessment & Plan (1) Acute kidney injury superimposed on chronic kidney disease: Plan: Plan of care focused on comfort measures. Remains relatively oliguric. Nephrology will sign-off, please call with questions or concerns. Marinelli remains in place. I discussed removing but Rufus stated she would prefer to keep the catheter for now for comfort. (2) Goals of care, counseling/discussion: Admission and Anticipated Discharge Date Admission Date: February 01, 2024 Subjective No acute events overnight. Rufus is resting comfortably in bed. Urine output increased slightly (~175 ml). She denies any complaints. Confirmed focus on comfort measures. Review of Systems Review of Systems: All systems reviewed & are unremarkable except as noted in HPI & below Physical Exam Constitutional: + frail appearing; no acute distress Eyes: + anicteric sclerae ENMT: Mouth: oral mucous membranes not dry Respiratory: normal respiratory effort Skin: no jaundice Neurologic: no focal motor deficits Psychiatric: Orientation: alert and oriented x 3 Results & Data Vital Signs (Past 12 Hours) Vital Signs Temp Pulse Resp BP Pulse Ox O2 Del Method 02/05/24 08:04 36.6 C 76 16 111/63 91 Room Air PG Care Time/CCT Total # of Minutes Spent Total Time Spent with Patient: Total time spent is greater than 50% in coordination of care (as documented) at patient's floor/unit and/or counseling patient: Coding Level of Care Code 36969 SUB INP/OBS CARE 2/35MIN Diagnoses Acute kidney injury superimposed on chronic kidney disease N17.9; N18.9 Goals of care, counseling/discussion Z71.89
--- NOTE | 2024-02-05 13:55 | Hospitalist Progress Note ---
Date of Service February 05, 2024 Assessment & Plan (1) Acute kidney injury superimposed on chronic kidney disease: Plan: In setting of recent caiu-tp-yibq paracentesis with extensive fluid drainage with continued diuretic use Initially suspected to be ATN from prerenal azotemia Patient was given IV fluids with no improvement. Renal function continues to get worse Nephrology on board Nephrology had a conversation with the patient. No dialysis was decided on No improvement on octreotide, midodrine and IV albumin Comfort care measures only (2) Hyperkalemia: Plan: Due to worsening renal function Low potassium diet and Lokelma will be continued Oliguric Nephrology on board Comfort measures has been decided on (3) Pleural effusion on left: Plan: Chest x-ray on 01/31 showed cardiomegaly with pulmonary vascular congestion as well as large left pleural effusion Patient is getting increasingly tachypneic Comfort care has been decided on (4) Cirrhosis of liver: Plan: Chronic secondary to [place] with hepatocellular CA s/p paracentesis on 01/22 and 01/30 Comfort care has been decided on. (5) Type 2 diabetes mellitus with obesity: Plan: Chronic - Last a1c 5.2% in October 2023 - Currently appears to be on mixed 70/30 insulin - Hold Metformin d/t renal failure Comfort care has been decided on Plan Additional stable medical problems: 1. History of breast CA - continue anastrazole 2. ABDELRAHMAN - H/H stable. continue FeSO4 supplementation, repeat CBC in AM, had recent iron infusion 3. GERD - continue PPI, change to protonix per hospital formulary 4. HLD - continue simvastatin Spoke to jovon Arzola, on the phone 02/03. Informed him about patient's decision on DNR/DNI CODE STATUS and comfort measures only. He felt relieved that she finally made the decision. He has me questions about disposition. I explained that the piano case and bench assembler will be involved and will help in disposition planning. Comfort care measures only Admission and Anticipated Discharge Date Admission Date: February 01, 2024 Subjective Patient is awake. She says that she is comfortable and has no complaints at this time. She continues to be oliguric. She prefers to have her Marinelli catheter in place for comfort reasons Review of Systems Review of Systems: All systems reviewed & are unremarkable except as noted in Subjective Physical Exam Physical Exam: General: Awake, conversant. Appears comfortable Lungs: Not tachypneic today. Normal effort Abdomen: Soft/nontender/distended with shifting dullness. Extremities: Trace bilateral edema Behavior: Appropriate, cooperative Results & Data Results & Data Vital Signs (Past 12 Hours) Vital Signs Temp Pulse Resp BP Pulse Ox O2 Del Method 02/05/24 12:27 68 16 103/65 95 Room Air 02/05/24 08:30 Room Air 02/05/24 08:04 36.6 C 76 16 111/63 91 Room Air PG Care Time/CCT Total # of Minutes Spent Total Time Spent with Patient: Total time spent is greater than 50% in coordination of care (as documented) at patient's floor/unit and/or counseling patient: Coding Level of Care Code 50344 SUB INP/OBS CARE 05/11MIN Diagnoses Acute kidney injury superimposed on chronic kidney disease N17.9; N18.9 Hyperkalemia E87.5 Pleural effusion on left J90 Cirrhosis of liver K74.60 Type 2 diabetes mellitus with obesity E11.69; E66.9
--- NOTE | 2024-02-06 14:48 | Hospitalist Progress Note ---
Date of Service February 06, 2024 Assessment & Plan (1) Acute kidney injury superimposed on chronic kidney disease: Plan: In setting of recent mopd-[id number]-[id number] paracentesis with extensive fluid drainage with continued diuretic use Initially suspected to be ATN from prerenal azotemia Patient was given IV fluids with no improvement. Renal function continues to get worse Nephrology on board Nephrology had a conversation with the patient. No dialysis was decided on No improvement on octreotide, midodrine and IV albumin Comfort care measures only (2) Hyperkalemia: Plan: Due to worsening renal function Low potassium diet and Lokelma will be continued Oliguric Nephrology on board Comfort measures has been decided on (3) Pleural effusion on left: Plan: Chest x-ray on 01/31 showed cardiomegaly with pulmonary vascular congestion as well as large left pleural effusion Patient is getting increasingly tachypneic Comfort care has been decided on (4) Cirrhosis of liver: Plan: Chronic secondary to [place] with hepatocellular CA s/p paracentesis on 01/22 and 01/30 Comfort care has been decided on. (5) Type 2 diabetes mellitus with obesity: Plan: Chronic - Last a1c 5.2% in October 2023 - Currently appears to be on mixed 70/30 insulin - Hold Metformin d/t renal failure Comfort care has been decided on. Discontinue Accu-Cheks Plan Discontinued most of chronic oral medications. Spoke to jovon Arzola, on the phone 02/03. Informed him about patient's decision on DNR/DNI CODE STATUS and comfort measures only. He felt relieved that she finally made the decision. He has me questions about disposition. I explained that the binder caser will be involved and will help in disposition planning. Comfort care measures only Admission and Anticipated Discharge Date Admission Date: February 01, 2024 Subjective Patient was seen and examined at 10:45 AM. She is lying in bed, accompanied by her family members. She does not complain of any discomfort. She had some loose stools yesterday but has not had any today. Review of Systems Review of Systems: All systems reviewed & are unremarkable except as noted in Subjective Physical Exam Physical Exam: General: Awake, conversant. Appears comfortable Lungs: Not tachypneic today. Normal effort Abdomen: Soft/nontender/distended with shifting dullness. Extremities: 1+ bilateral edema Behavior: Appropriate, cooperative Results & Data Results & Data Vital Signs (Past 12 Hours) Vital Signs O2 Del Method 02/06/24 07:57 Room Air PG Care Time/CCT Total # of Minutes Spent Total Time Spent with Patient: Total time spent is greater than 50% in coordination of care (as documented) at patient's floor/unit and/or counseling patient: Coding Level of Care Code 99337 SUB INP/OBS CARE 2/35MIN Diagnoses Acute kidney injury superimposed on chronic kidney disease N17.9; N18.9 Hyperkalemia E87.5 Pleural effusion on left J90 Cirrhosis of liver K74.60 Type 2 diabetes mellitus with obesity E11.69; E66.9
--- NOTE | 2024-02-07 13:08 | Hospitalist Progress Note ---
Date of Service February 07, 2024 Assessment & Plan (1) Acute kidney injury superimposed on chronic kidney disease: Plan: In setting of recent kblj-zh-mywv paracentesis with extensive fluid drainage with continued diuretic use Initially suspected to be ATN from prerenal azotemia Patient was given IV fluids with no improvement. Renal function continues to get worse Nephrology on board Nephrology had a conversation with the patient. No dialysis was decided on No improvement on octreotide, midodrine and IV albumin Comfort care measures only (2) Hyperkalemia: Plan: Due to worsening renal function Low potassium diet and Lokelma will be continued Oliguric Nephrology on board Comfort measures has been decided on (3) Pleural effusion on left: Plan: Chest x-ray on 01/31 showed cardiomegaly with pulmonary vascular congestion as well as large left pleural effusion Patient is getting increasingly tachypneic Comfort care has been decided on (4) Cirrhosis of liver: Plan: Chronic secondary to [place] with hepatocellular CA s/p paracentesis on 01/22 and 01/30 Comfort care has been decided on. (5) Type 2 diabetes mellitus with obesity: Plan: Chronic - Last a1c 5.2% in October 2023 - Currently appears to be on mixed 70/30 insulin - Hold Metformin d/t renal failure Comfort care has been decided on. Discontinue Accu-Cheks Plan Discontinued most of chronic oral medications. I spoke to criselda Jc. She asked me what to expect in terms of timeline. I explained to her that it may take days to weeks. She is working with the caseworker intake on a disposition plan. Admission and Anticipated Discharge Date Admission Date: February 01, 2024 Subjective Patient was seen at 9:50 AM. She denies any active discomfort. She was seen lying in bed, sleeping. She woke up and answers my questions appropriately. Review of Systems Review of Systems: All systems reviewed & are unremarkable except as noted in Subjective Physical Exam Physical Exam: General: Sleeping, arousable. Able to answer questions appropriately. Appears comfortable Lungs: Not tachypneic. Normal effort Abdomen: Soft/nontender/distended with shifting dullness. Extremities: 1+ bilateral edema Behavior: Appropriate, cooperative Results & Data Results & Data Vital Signs (Past 12 Hours) Vital Signs Pulse BP Pulse Ox O2 Del Method 02/07/24 10:50 71 118/66 93 Room Air 02/07/24 07:45 Room Air PG Care Time/CCT Total # of Minutes Spent Total Time Spent with Patient: Total time spent is greater than 50% in coordination of care (as documented) at patient's floor/unit and/or counseling patient: Coding Level of Care Code 34707 SUB INP/OBS CARE 2/35MIN Diagnoses Acute kidney injury superimposed on chronic kidney disease N17.9; N18.9 Hyperkalemia E87.5 Pleural effusion on left J90 Cirrhosis of liver K74.60 Type 2 diabetes mellitus with obesity E11.69; E66.9
--- NOTE | 2024-02-08 14:02 | Hospitalist Progress Note ---
Date of Service February 08, 2024 Assessment & Plan (1) Acute kidney injury superimposed on chronic kidney disease: Plan: In setting of recent lgoo-dj-[id number] paracentesis with extensive fluid drainage with continued diuretic use Initially suspected to be ATN from prerenal azotemia Patient was given IV fluids with no improvement. Renal function continues to get worse Nephrology on board Nephrology had a conversation with the patient. No dialysis was decided on No improvement on octreotide, midodrine and IV albumin Comfort care measures only (2) Hyperkalemia: Plan: Due to worsening renal function Low potassium diet and Lokelma will be continued Oliguric Nephrology on board Comfort measures has been decided on (3) Pleural effusion on left: Plan: Chest x-ray on 01/31 showed cardiomegaly with pulmonary vascular congestion as well as large left pleural effusion Patient is getting increasingly tachypneic Comfort care has been decided on (4) Cirrhosis of liver: Plan: Chronic secondary to [place] with hepatocellular CA s/p paracentesis on 01/22 and 01/30 Comfort care has been decided on. She may wish to continue paracentesis for palliative purposes. Will discuss this with the patient tomorrow. (5) Type 2 diabetes mellitus with obesity: Plan: Chronic - Last a1c 5.2% in October 2023 - Currently appears to be on mixed 70/30 insulin - Hold Metformin d/t renal failure Comfort care has been decided on. Discontinue Accu-Cheks Plan Discontinued most of chronic oral medications. I spoke to criselda Jc on 02/06. She asked me what to expect in terms of timeline. I explained to her that it may take days to weeks. She is working with the case managers on a disposition plan. Admission and Anticipated Discharge Date Admission Date: February 01, 2024 Subjective Patient was seen and examined at 10:30 AM. Patient says that she had a rough night and could not find a comfortable position to sleep. She is now tired and would like to sleep. She is now comfortable. Physical Exam Physical Exam: General: Sleeping, arousable. Able to answer questions appropriately. Appears comfortable Lungs: Not tachypneic. Normal effort Abdomen: Soft/nontender/distended with shifting dullness. Extremities: 1+ bilateral edema Behavior: Appropriate, cooperative Results & Data Results & Data Vital Signs (Past 12 Hours) Vital Signs Temp Pulse Resp BP BP Pulse Ox O2 Del Method 02/08/24 11:59 103/60 02/08/24 07:38 80 111/66 02/08/24 07:15 Room Air 02/08/24 06:56 36.4 C L 77 17 126/67 91 Room Air PG Care Time/CCT Total # of Minutes Spent Total Time Spent with Patient: Total time spent is greater than 50% in coordination of care (as documented) at patient's floor/unit and/or counseling patient: Coding Level of Care Code 10231 SUB INP/OBS CARE 2/35MIN Diagnoses Acute kidney injury superimposed on chronic kidney disease N17.9; N18.9 Hyperkalemia E87.5 Pleural effusion on left J90 Cirrhosis of liver K74.60 Type 2 diabetes mellitus with obesity E11.69; E66.9
--- NOTE | 2024-02-09 12:27 | Hospitalist Progress Note ---
Date of Service February 09, 2024 Assessment & Plan (1) Acute kidney injury superimposed on chronic kidney disease: Plan: In setting of recent zpeo-rs-daov paracentesis with extensive fluid drainage with continued diuretic use Initially suspected to be ATN from prerenal azotemia Patient was given IV fluids with no improvement. Renal function continues to get worse Nephrology on board Nephrology had a conversation with the patient. No dialysis was decided on No improvement on octreotide, midodrine and IV albumin Comfort care measures only (2) Hyperkalemia: Plan: Due to worsening renal function Low potassium diet and Lokelma will be continued Oliguric Nephrology on board Comfort measures has been decided on (3) Pleural effusion on left: Plan: Chest x-ray on 01/31 showed cardiomegaly with pulmonary vascular congestion as well as large left pleural effusion Patient is getting increasingly tachypneic Comfort care has been decided on (4) Cirrhosis of liver: Plan: Chronic secondary to [place] with hepatocellular CA s/p paracentesis on 01/22 and 01/30 Comfort care has been decided on. Patient did not want palliative paracentesis at this time. She said she will consider it in future if her ascites causes her discomfort. (5) Type 2 diabetes mellitus with obesity: Plan: Chronic - Last a1c 5.2% in October 2023 - Currently appears to be on mixed 70/30 insulin - Hold Metformin d/t renal failure Comfort care has been decided on. Discontinue Accu-Cheks Plan Discontinued most of chronic oral medications. I spoke to criselda Jc on 02/06. She asked me what to expect in terms of timeline. I explained to her that it may take days to weeks. She is working with the hospice case manager on a disposition plan. Admission and Anticipated Discharge Date Admission Date: February 01, 2024 Subjective Patient was seen at 10:40 AM. She denies any shortness of breath. She does not feel like her belly is excessively distended. She was getting paracentesis done outpatient and today she was due for her paracentesis. I asked her if she wanted paracentesis done for comfort reasons. She stated that she is not in any discomfort due to her swollen abdomen. Review of Systems Review of Systems: All systems reviewed & are unremarkable except as noted in Subjective Physical Exam Physical Exam: General: Sleeping, arousable. Able to answer questions appropriately. Appears comfortable Lungs: Not tachypneic. Normal effort Abdomen: Soft/nontender/distended with shifting dullness. Extremities: 1+ bilateral edema Behavior: Appropriate, cooperative Results & Data Results & Data Vital Signs (Past 12 Hours) Vital Signs O2 Del Method 02/09/24 07:30 Room Air PG Care Time/CCT Total # of Minutes Spent Total Time Spent with Patient: Total time spent is greater than 50% in coordination of care (as documented) at patient's floor/unit and/or counseling patient: Coding Level of Care Code 77511 SUB INP/OBS CARE 2/35MIN Diagnoses Acute kidney injury superimposed on chronic kidney disease N17.9; N18.9 Hyperkalemia E87.5 Pleural effusion on left J90 Cirrhosis of liver K74.60 Type 2 diabetes mellitus with obesity E11.69; E66.9
--- NOTE | 2024-02-10 11:06 | Hospitalist Progress Note ---
Date of Service February 10, 2024 Assessment & Plan (1) Acute kidney injury superimposed on chronic kidney disease: Plan: In setting of recent djoe-ig-nsbq paracentesis with extensive fluid drainage with continued diuretic use Initially suspected to be ATN from prerenal azotemia Comfort care measures only (2) Hyperkalemia: Plan: Due to worsening renal function Low potassium diet and Lokelma will be continued Oliguric Nephrology signed off Comfort measures has been decided on (3) Pleural effusion on left: Plan: Chest x-ray on 01/31 showed cardiomegaly with pulmonary vascular congestion as well as large left pleural effusion Patient is getting increasingly tachypneic Comfort care has been decided on (4) Cirrhosis of liver: Plan: Chronic secondary to [place] with hepatocellular CA s/p paracentesis on 01/22 and 01/30 Comfort care has been decided on. Patient did not want palliative paracentesis at this time. She said she will consider it in future if her ascites causes her discomfort. (5) Type 2 diabetes mellitus with obesity: Plan: Chronic - Last a1c 5.2% in October 2023 - Currently appears to be on mixed 70/30 insulin - Hold Metformin d/t renal failure Comfort care has been decided on. Discontinue Accu-Cheks Plan Discontinued most of chronic oral medications. Nephrology, Pulm signed off Hopefully d/c when the disposition is clear Admission and Anticipated Discharge Date Admission Date: February 01, 2024 Subjective patient seen and examined, no new complaints Review of Systems Review of Systems: All systems reviewed are negative, apart from the ones contained in the history. Physical Exam Physical Exam: The patient is awake, alert and oriented 3, well developed and well nourished, normocephalic and atraumatic, lying in bed and in no acute distress. HEENT--PERRL, EOMI, mucous membranes and oropharynx mildly dry Neck--supple. No JVD. No bruits. Thyroid normal, trachea midline, no adenopathy. Heart--normal S1 and S2. No murmurs, rubs or gallops. Lungs--clear bilaterally, no respiratory distress, no accessory muscle use. Abdomen--normal bowel sounds and soft. Extremities--no cyanosis or clubbing. No edema. Dermatologic--normal skin turgor, normal color, no abnormal lymph nodes, no rash. Neurologic--cranial nerves II through XII grossly intact. Rheumatologic--normal range of motion. Psychiatric--normal affect. PG Care Time/CCT Total # of Minutes Spent Total Time Spent with Patient: Total time spent is greater than 50% in coordination of care (as documented) at patient's floor/unit and/or counseling patient: Coding Level of Care Code 70865 SUB INP/OBS CARE 2/35MIN Diagnoses Acute kidney injury superimposed on chronic kidney disease N17.9; N18.9 Hyperkalemia E87.5 Pleural effusion on left J90 Cirrhosis of liver K74.60 Type 2 diabetes mellitus with obesity E11.69; E66.9 Time Spent (min) 35
[2024-02-10] MEDS: LORazepam 2 MG/1 ML VIAL IV PRN (17:26)
[2024-02-10] MEDS: HYDROmorphone INJ 0.5 MG/0.5 ML SYR IV PRN (23:00)
[2024-02-11] MEDS: ONDANSETRON INJ 2 MG/ML 2 ML VIAL IV PRN (07:54)
--- NOTE | 2024-02-11 10:51 | Hospitalist Progress Note ---
Date of Service February 11, 2024 Assessment & Plan (1) Acute kidney injury superimposed on chronic kidney disease: Plan: In setting of recent kbku-do-iuvz paracentesis with extensive fluid drainage with continued diuretic use Initially suspected to be ATN from prerenal azotemia Comfort care measures only (2) Hyperkalemia: Plan: Due to worsening renal function Low potassium diet and Lokelma will be continued Oliguric Nephrology signed off Comfort measures has been decided on (3) Pleural effusion on left: Plan: Chest x-ray on 01/31 showed cardiomegaly with pulmonary vascular congestion as well as large left pleural effusion Patient is getting increasingly tachypneic Comfort care has been decided on (4) Cirrhosis of liver: Plan: Chronic secondary to [place] with hepatocellular CA s/p paracentesis on 01/22 and 01/30 Comfort care has been decided on. Patient now willing to undergo another palliative paracentesis, scheduled for Monday (5) Type 2 diabetes mellitus with obesity: Plan: Chronic - Last a1c 5.2% in October 2023 - Currently appears to be on mixed 70/30 insulin - Hold Metformin d/t renal failure Comfort care has been decided on. Discontinue Accu-Cheks Plan Discontinued most of chronic oral medications. Nephrology, Pulm signed off Hopefully d/c when the disposition is clear Admission and Anticipated Discharge Date Admission Date: February 01, 2024 Subjective patient seen and examined, no new complaints, now willing to undergo paracentesis Review of Systems Review of Systems: All systems reviewed are negative, apart from the ones contained in the history. Physical Exam Physical Exam: The patient is awake, alert and oriented 3, well developed and well nourished, normocephalic and atraumatic, lying in bed and in no acute distress. HEENT--PERRL, EOMI, mucous membranes and oropharynx mildly dry Neck--supple. No JVD. No bruits. Thyroid normal, trachea midline, no adenopathy. Heart--normal S1 and S2. No murmurs, rubs or gallops. Lungs--clear bilaterally, no respiratory distress, no accessory muscle use. Abdomen--normal bowel sounds and soft. Extremities--no cyanosis or clubbing. No edema. Dermatologic--normal skin turgor, normal color, no abnormal lymph nodes, no rash. Neurologic--cranial nerves II through XII grossly intact. Rheumatologic--normal range of motion. Psychiatric--normal affect. PG Care Time/CCT Total # of Minutes Spent Total Time Spent with Patient: Total time spent is greater than 50% in coordination of care (as documented) at patient's floor/unit and/or counseling patient: Coding Level of Care Code 04907 SUB INP/OBS CARE 2/35MIN Diagnoses Acute kidney injury superimposed on chronic kidney disease N17.9; N18.9 Hyperkalemia E87.5 Pleural effusion on left J90 Cirrhosis of liver K74.60 Type 2 diabetes mellitus with obesity E11.69; E66.9 Time Spent (min) 35
[2024-02-11 14:49] LABS: Hematocrit (blood only) 25.5 % (37.0-47.0)
[2024-02-11] MEDS: PROMETHAZINE 6.25 MG/50.25 ML BAG IV STA (14:54)
[2024-02-11 15:10] LABS: Hematocrit (blood only) 24.4 % (37.0-47.0); Hemoglobin 7.9 g/dl (12.0-16.0); Mean Corpuscular Hemoglobin 34.6 pg (25.0-34.0); Mean Corpuscular Hgb Conc 32.4 g/dL (32.0-36.0); Mean Platelet Volume 9.9 fL (9.4-12.4); Platelet Count 51 K/uL (130-400); RDW Standard Deviation 67.4 fL (36.4-46.3); Red Blood Count 2.28 M/uL (4.20-5.40); White Blood Count 4.59 K/ul (4.8-10.8)
[2024-02-11 15:15] LABS: Calcium 8.8 mg/dl (8.6-10.3); Potassium 4.6 mmol/L (3.5-5.1)
[2024-02-11 15:23] LABS: BUN Creatinine Ratio 12.5 (10-20); Creatinine Clr Calc Pharmacy 10.1 ml/min
[2024-02-11] MEDS ORDERED: STAT IV/IM STA (15:47)
[2024-02-11] MEDS ORDERED: PANTOPRAZOLE BOLUS/DRIP IV STA (15:47)
[2024-02-11] MEDS: OCTREOTIDE ACETATE 500 MCG in SODIUM CHLORIDE 0.9% 100 ML IV SCH (16:21)
[2024-02-11] MEDS: PANTOprazole 80 MG in DEXTROSE 5% 100 ML IV ONE (16:21)
[2024-02-11] MEDS: PANTOprazole 40 MG in DEXTROSE 5% MINI-B 100 ML IV SCH (16:36)
[2024-02-12 07:24] LABS: INR 1.3 (0.9-1.1); Prothrombin Time 13.5 Seconds (9.0-12.0)
[2024-02-12 08:04] LABS: BUN Creatinine Ratio 12.3 (10-20); Calcium 8.7 mg/dl (8.6-10.3); Creatinine Clr Calc Pharmacy 10.1 ml/min
[2024-02-12 08:08] LABS: Hematocrit (blood only) 21.4 % (37.0-47.0); Hemoglobin 6.7 g/dl (12.0-16.0); Mean Corpuscular Hemoglobin 34.4 pg (25.0-34.0); Mean Corpuscular Hgb Conc 31.3 g/dL (32.0-36.0); Mean Corpuscular Volume 109.7 fL (80.0-100.0); Platelet Count 46 K/uL (130-400); RDW Coefficient of Variation 16.9 % (11.5-14.5); RDW Standard Deviation 67.2 fL (36.4-46.3); Red Blood Count 1.95 M/uL (4.20-5.40); White Blood Count 3.49 K/ul (4.8-10.8)
[2024-02-12] MEDS ORDERED: SODIUM CHLORIDE 0.9% 100 ML IV PRN (08:11)
[2024-02-12 09:29] VITALS: RESP 18
[2024-02-12 11:25] VITALS: BP 112/67; PULSE 73; TEMP 97.5; O2SAT 93
--- NOTE | 2024-02-12 11:32 | Gastrointestinal Consultation ---
Date of Consultation February 12, 2024 Assessment & Plan (1) GI bleed: Patient on comfort measures with large pleural effusion, recurrent ascites requiring paracentesis due to advanced liver cirrhosis with hepatocellular carcinoma, and acute kidney injury. H/H 6.7/21.4 today. BUN 79, Cr 6.43. She is receiving a blood transfusion at the time of my visit. No known history of varices; Last EGD 2021. She was having painless BRBPR. She has not had further episodes today. She notes that she is vomiting, but fortunately -Continue to monitor for further BRBPR -Patient has medical contraindications to elective endoscopic evaluation -Continue to monitor conservatively Supervising Physician Co-Signing Physician Notes I examined the patient and reviewed patient's chart , laboratory data and imaging studies. I agree with with assessment and plan of care as suggested by advanced practice provider. History of Present Illness Reason for Consultation: BRBPR Attending Physician: Bethany Verdugo MD History of Present Illness Patient is a 73 yo female with cirrhosis with hepatocellular carcinoma, SHIREEN on CKD, pleural effusion, & DM2. Due to her overall clinical picture at present, she is on comfort measures only. Reportedly last night she developed a sensation of needing to move her bowels. She denies significant abdominal pain with it. She had passed BRBPR. This happened 4 times on 02/11/24. She notes nausea & vomiting, but she is not vomiting blood. EGD in 2021 without varices. Colonoscopy 2022 with polyps & diverticulosis. H/H 6.7/21.4. She is receiving a blood transfusion at the time of my visit. She notes she has not had further BRB IL today. Creatinine is 6.43. Allergies Allergy/AdvReac Type Severity Reaction Status Date / Time oxycodone AdvReac Mild NAUSEA Verified 01/12/24 14:56 WITH EMESIS Home Medications Medication Instructions Recorded Confirmed Type acetaminophen 500 mg tablet 1,000 mg PO BID PRN Pain 02/03/22 02/01/24 History mecobalamin (vitamin B12) 1,000 1,000 mcg PO QAM 02/03/22 02/01/24 History mcg chewable tablet anastrozole 1 mg tablet 1 mg PO QAM 10/05/22 02/01/24 History propranolol 20 mg tablet 20 mg PO QAM #30 tabs 04/12/23 02/01/24 Rx ergocalciferol (vitamin D2) 1,250 50,000 unit PO MONTHLY #12 caps 04/18/23 02/01/24 Rx mcg (50,000 unit) capsule blood sugar diagnostic #200 ea 07/04/23 02/01/24 Rx metformin 500 mg tablet 500 mg PO BID #180 tabs 07/04/23 02/01/24 Rx furosemide 20 mg tablet (Lasix) 20 mg PO . ON HOLD 08/29/23 02/01/24 History insulin aspar prt-insulin aspart 20 unit subcut BID 11/30/23 02/01/24 History 100 unit/mL (70-30) subcutaneous soln (Novolog Mix 70-30 U-100 Insuln) diclofenac sodium 1 % topical gel 2 g topical QID PRN Other 01/01/24 02/01/24 History (Voltaren Arthritis Pain) potassium chloride 10 mEq 20 meq PO .ON HOLD 01/01/24 02/01/24 History capsule,extended release ferrous sulfate 325 mg (65 mg 325 mg PO .ON HOLD 02/01/24 02/01/24 History iron) tablet (FeroSul) omeprazole 20 mg tablet,delayed 20 mg PO QDL 02/01/24 02/01/24 History release simvastatin 20 mg tablet 20 mg PO HS 02/01/24 02/01/24 History spironolactone 100 mg tablet 100 mg PO .ON HOLD 02/01/24 02/01/24 History Patient History Medical History Elevated troponin Fall at home Hypoglycemia associated with type 2 diabetes mellitus History of kidney stones Breast cancer, left breast Biopsy on 04/28/22>completed radiation August 2022 Thrombocytopenia Platelet counts under 100 since 2016. Due to cirrhosis, Vit B12 def, and iron def per records- follows with heme Hyperlipidemia Sleep apnea cpap Surgical History Status post left breast lumpectomy 06/06/22 Dr. Gee Amaro History of esophagogastroduodenoscopy (EGD) Status post right knee replacement History of cataract surgery R/L Status post cystoscopy with ureteral stent placement History of anesthesia reaction "terrible headache from spinal" + with previous colonoscopy>"woke up in middle of procedure and could feel pain" History of lithotripsy History of colonoscopy History of nephrectomy, unilateral left History of tooth extraction all teeth removed History of surgical procedure on eye proper using laser left Family History Father , 67yo Myocardial infarction Stroke Diabetes Mother , 79yo History of kidney cancer Diabetes Sister , 32yo Aspiration into airway Other No family history of adverse response to anesthesia Denies family history of Prostate cancer Breast cancer Colorectal cancer Social History Smoking Status: Never smoker Tobacco Type: Cigarettes Second Hand Exposure: No; Do You Dip or Chew Tobacco: No; Hx Alcohol Use: No Hx Substance Use: No Preferred Language: Icelandic Communication Ability: Effective Visual Impairment: No Limitations Hearing Ability: Normal Business Division Chair Required: No Beliefs That Will Affect Care: Church Church Beliefs: Laisha Saldana marital status: Single Current Living Situation: Alone current occupational status: retired 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 [employer] How many Children do You have: 0 Other Information That Helps Us Care for You: No Feels Safe at Home: Yes Safety Concerns: Feels Safe At This Time Childhood Exposure to Second-Hand Smoke: No Diet: regular caffeine: No during the past year weight has: remained stable Dental Care, Regularly: No Physical Activity Frequency: Does not Exercise Seatbelt Use: always Sunscreen Use: No Assistive Devices: Cane and Walker Review of Systems Constitutional: + fatigue Respiratory: + dyspnea on exertion Gastrointestinal: + blood in stools; no abdominal pain Hematologic / Lymphatic: no unexplained weight loss Physical Exam Constitutional: + ill appearing Respiratory: no respiratory distress Cardiovascular: Rate/Rhythm: regular rate Gastrointestinal (Abdomen): Inspection/Auscultation: + abdomen distended Percussion/Palpation: + ascites Psychiatric: Orientation: alert and oriented x 3 Results & Data Vital Signs (Past 12 Hours) Vital Signs Temp Pulse Resp BP Pulse Ox 02/12/24 11:25 36.4 C L 73 18 112/67 93 02/12/24 10:30 36.6 C 79 18 112/65 90 02/12/24 10:00 36.6 C 80 18 111/72 92 02/12/24 09:45 36.5 C 76 18 98/62 L 93 10/28/24 09:33 36.7 C 79 18 102/62 90 02/12/24 09:21 36.7 C 76 18 102/62 90 PG Care Time/CCT Total # of Minutes Spent Total Time Spent with Patient: Total time spent is greater than 50% in coordination of care (as documented) at patient's floor/unit and/or counseling patient: Coding Level of Care Code 87530 INT INP/OBS CARE 3/75MIN Diagnoses GI bleed K92.2
--- NOTE | 2024-02-12 11:32 | Hospitalist Progress Note ---
Date of Service February 12, 2024 Assessment & Plan (1) GI bleed: Plan: patient started passing blood clots MO yesterday Although she is comfort care only, but she requested I did something to make the bleeding stop I started her on protonix and Octreotide drip, based on the suspicion of variceal bleed Hb dropped to 6.7 this morning, she agreed for 1 unit of blood No more bleeds this morning Protonix and octreotide drip have been discontinued she still wishes to be comfort care (2) Acute kidney injury superimposed on chronic kidney disease: Plan: In setting of recent [id number]-bm-ryme paracentesis with extensive fluid drainage with continued diuretic use Initially suspected to be ATN from prerenal azotemia Comfort care measures only (3) Hyperkalemia: Plan: Due to worsening renal function Low potassium diet and Lokelma will be continued Oliguric Nephrology signed off Comfort measures has been decided on (4) Pleural effusion on left: Plan: Chest x-ray on 01/31 showed cardiomegaly with pulmonary vascular congestion as well as large left pleural effusion Patient is getting increasingly tachypneic Comfort care has been decided on (5) Cirrhosis of liver: Plan: Chronic secondary to [place] with hepatocellular CA s/p paracentesis on 01/22 and 01/30 Comfort care has been decided on. Patient now willing to undergo another palliative paracentesis, scheduled for Monday (6) Type 2 diabetes mellitus with obesity: Plan: Chronic - Last a1c 5.2% in October 2023 - Currently appears to be on mixed 70/30 insulin - Hold Metformin d/t renal failure Comfort care has been decided on. Discontinue Accu-Cheks Plan Discontinued most of chronic oral medications. Nephrology, Pulm signed off Hopefully d/c when the disposition is clear Admission and Anticipated Discharge Date Admission Date: February 01, 2024 Subjective patient seen and examined, no new complaints, had a lot of blood clots MO yesterday, stable this morning Review of Systems Review of Systems: All systems reviewed are negative, apart from the ones contained in the history. Physical Exam Physical Exam: The patient is awake, alert and oriented 3, well developed and well nourished, normocephalic and atraumatic, lying in bed and in no acute distress. HEENT--PERRL, EOMI, mucous membranes and oropharynx mildly dry Neck--supple. No JVD. No bruits. Thyroid normal, trachea midline, no adenopat hy. Heart--normal S1 and S2. No murmurs, rubs or gallops. Lungs--clear bilaterally, no respiratory distress, no accessory muscle use. Abdomen--normal bowel sounds and soft. Extremities--no cyanosis or clubbing. No edema. Dermatologic--normal skin turgor, normal color, no abnormal lymph nodes, no rash. Neurologic--cranial nerves II through XII grossly intact. Rheumatologic--normal range of motion. Psychiatric--normal affect. Results & Data Results & Data Vital Signs (Past 12 Hours) Vital Signs Temp Pulse Resp BP Pulse Ox 02/12/24 11:25 97.5 F L 73 18 112/67 93 02/12/24 10:30 97.9 F 79 18 112/65 90 02/12/24 10:00 97.9 F 80 18 111/72 92 02/12/24 09:45 97.7 F 76 18 98/62 L 93 02/12/24 09:33 98.1 F 79 18 102/62 90 02/12/24 09:21 98.1 F 76 18 102/62 90 PG Care Time/CCT Total # of Minutes Spent Total Time Spent with Patient: Total time spent is greater than 50% in coordination of care (as documented) at patient's floor/unit and/or counseling patient: Coding Level of Care Code 48891 SUB INP/OBS CARE 2/35MIN Diagnoses GI bleed K92.2 Acute kidney injury superimposed on chronic kidney disease N17.9; N18.9 Hyperkalemia E87.5 Pleural effusion on left J90 Cirrhosis of liver K74.60 Type 2 diabetes mellitus with obesity E11.69; E66.9 Time Spent (min) 35
--- NOTE | 2024-02-12 15:03 | Ultrasound Report ---
IR paracentesis abd w/img US CLINICAL HISTORY: Ascites. COMPARISON STUDY: Ultrasound guided paracentesis January 31, 2024. PROCEDURE: The procedure, risks and benefits were discussed with the patient and informed written con sent was obtained. The procedure was performed by Dr. Berkowitz following a timeout. Skin of the righ t lower quadrant was prepped and draped in sterile fashion and local anesthesia was achieved with 1% lidocaine. Under direct ultrasound guidance, a 5 [place] catheter was inserted into the peritoneal cav ity. There was immediate return of serosanguineous ascites. A total 4.2 L of ascites was withdrawn. T he catheter was removed. The patient tolerated the procedure well and no immediate complications were evident. IMPRESSION: Successful ultrasound guided therapeutic paracentesis with drainage of 4.2 L of ascites. ACT 112: Negative or not required by law. Electronically signed by: Gregor Berkowitz M.D. 02/12/2024 3:01 PM
[2024-02-13 10:01] LABS: Hematocrit (blood only) 19.8 % (37.0-47.0); Hemoglobin 6.6 g/dl (12.0-16.0); Mean Corpuscular Hemoglobin 34.2 pg (25.0-34.0); Mean Corpuscular Hgb Conc 33.3 g/dL (32.0-36.0); Mean Corpuscular Volume 102.6 fL (80.0-100.0); Mean Platelet Volume 9.9 fL (9.4-12.4); Platelet Count 52 K/uL (130-400); RDW Coefficient of Variation 19.9 % (11.5-14.5); RDW Standard Deviation 74.5 fL (36.4-46.3); Red Blood Count 1.93 M/uL (4.20-5.40)
[2024-02-13] MEDS ORDERED: SODIUM CHLORIDE 0.9% 100 ML IV PRN ×2 (10:01→11:13)
[2024-02-13] MEDS ORDERED: SODIUM CHLORIDE 0.9% 50 ML IV PRN ×2 (10:01→11:13)
--- NOTE | 2024-02-13 10:47 | Hospitalist Progress Note ---
Date of Service February 13, 2024 Assessment & Plan (1) GI bleed: Plan: patient started passing blood clots VT yesterday Although she is comfort care only, but she requested I did something to make the bleeding stop Hb dropped to 6.7 on 02/11, she agreed for 1 unit of blood Bleeding continues, repeat Hb today, 02/12 is 6.6, will give another unit of blood she still wishes to be comfort care (2) Acute kidney injury superimposed on chronic kidney disease: Plan: In setting of recent yufn-nu-tqae paracentesis with extensive fluid drainage with continued diuretic use Initially suspected to be ATN from prerenal azotemia Comfort care measures only (3) Hyperkalemia: Plan: Due to worsening renal function Low potassium diet and Lokelma will be continued Oliguric Nephrology signed off Comfort measures has been decided on (4) Pleural effusion on left: Plan: Chest x-ray on 01/31 showed cardiomegaly with pulmonary vascular congestion as well as large left pleural effusion Patient is getting increasingly tachypneic Comfort care has been decided on (5) Cirrhosis of liver: Plan: Chronic secondary to [place] with hepatocellular CA s/p paracentesis on 01/22 and 01/30 Comfort care has been decided on. She underwent another palliative paracentesis 02/11 with removal of about 4L of fluid (6) Type 2 diabetes mellitus with obesity: Plan: Chronic - Last a1c 5.2% in October 2023 - Currently appears to be on mixed 70/30 insulin - Hold Metformin d/t renal failure Comfort care has been decided on. Discontinue Accu-Cheks Plan Discontinued most of chronic oral medications. Nephrology, Pulm signed off Hopefully d/c when the disposition is clear. I spoke to the niece Admission and Anticipated Discharge Date Admission Date: February 01, 2024 Subjective patient seen and examined, she is not doing well this morning. awake, but not answering questions, according to RN, has been that way since late last nnight Review of Systems Review of Systems: unable to obtain Physical Exam Physical Exam: The patient is awake, but not responding HEENT--PERRL, EOMI, mucous membranes and oropharynx mildly dry Neck--supple. No JVD. No bruits. Thyroid normal, trachea midline, no adenopathy. Heart--normal S1 and S2. No murmurs, rubs or gallops. Lungs--clear bilaterally, no respiratory distress, no accessory muscle use. Abdomen--normal bowel sounds and soft. Extremities--no cyanosis or clubbing. No edema. Dermatologic--normal skin turgor, normal color, no abnormal lymph nodes, no rash. Neurologic--awake, not responding Rheumatologic--normal range of motion. Psychiatric--normal affect. PG Care Time/CCT Total # of Minutes Spent Total Time Spent with Patient: Total time spent is greater than 50% in coordination of care (as documented) at patient's floor/unit and/or counseling patient: Coding Level of Care Code 97894 SUB INP/OBS CARE 2/35MIN Diagnoses GI bleed K92.2 Acute kidney injury superimposed on chronic kidney disease N17.9; N18.9 Hyperkalemia E87.5 Pleural effusion on left J90 Cirrhosis of liver K74.60 Type 2 diabetes mellitus with obesity E11.69; E66.9 Time Spent (min) 35
--- NOTE | 2024-02-13 11:20 | Communication Note ---
Date of Service: February 13, 2024 Patient is a 73 yo female on comfort measures due to multiple chronic, worsening medical issues. H/H today is 6.6/19.8. She did have further episodes of rectal bleeding last night. Though she is on comfort measures, GI has been involved in the clinical situation due to the patient wanting the bleeding to stop. She is on IV Octreotide & PPI therapy. Moving forward, outside of endoscopic evaluation there is minimal options from a GI standpoint, but invasive testing does not particularly align with the plan of comfort measures. Patient's overall condition does raise the concern of whether she would be capable of undergoing anesthesia and a colonoscopy. Family also questioned yesterday whether she was capable of undergoing these procedures. At this point, we would advise palliative care consultation to align goals of care moving forward.
[2024-02-13] MEDS ORDERED: LORazepam 2 MG/1 ML VIAL IV PRN (14:35)
[2024-02-13] MEDS ORDERED: STAT IV Infusion **Titration per Protocol STA (14:35)
[2024-02-13] MEDS ORDERED: ONDANSETRON INJ 2 MG/ML 2 ML VIAL IV PRN (14:35)
[2024-02-13] MEDS ORDERED: MoRPHine BOLUS from BAG IV PRN (14:35)
[2024-02-13] MEDS: MoRPHine SULF 100 MG/100 ML BAG IV SCH (15:25)
--- NOTE | 2024-02-13 21:00 | Communication Note ---
Date of Service: February 13, 2024 Notified by nursing of blood unit availability for transfusion for patient. 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 When I asked night nursing if pt was symptomatic from her anemia, she responded that pt was noncommunicative and on a morphine drip. Due to pt's current condition and apparent lack of symptoms stemming from blood loss anemia, I do not believe she would benefit in terms of comfort from a blood transfusion; therefore, I instructed nursing to hold the unit of blood. I would recommend further discussion with patient and family (as pt does not appear to have ability to communicate her wishes at this time) to clarify goals of care and to detail in documentation what specific interventions align with providing the pt comfort. Resident Activity Tracking Resident Involvement: Resident Care Provided Care Provided: Adult Hospital Medicine
[2024-02-13] MEDS ORDERED: HYOSCYAMINE SULFATE 0.125 MG TAB SL PRN (21:59)
[2024-02-13] MEDS ORDERED: ATROPINE SULFATE 1% OP SOLN 5 ML BTL SL PRN (21:59)
[2024-02-13] MEDS: GLYCOPYRROLATE 0.2 MG/ML VIAL IV PRN (22:15)
--- NOTE | 2024-02-14 06:31 | Death Pronouncement Note ---
Date of Service February 14, 2024 Pronouncement Note Admission Date Admission Date: February 01, 2024 Contributing Factors (1) GI bleed: (2) Acute kidney injury superimposed on chronic kidney disease: (3) Hyperkalemia: (4) Pleural effusion on left: (5) Cirrhosis of liver: (6) Type 2 diabetes mellitus with obesity: Summary Additional details: I was called to pronounce the of Rufus Thompson : 1950 by nursing on 02/14/2024. Upon entering the room, the patient was found to be in a terminal state. Patient was unresponsive to verbal and tactile stimuli. Patient unresponsive to corneal and pupillary reflexes. On cardiopulmonary exam, no carotid or radial pulses found and pt without spontaneous heart tones or respirations. Time of was pronounced by me on 02/14/2024 at 06:28. Attending physician was notified. Next of kin was notified by nursing. Additional Data Attending physician: Bethany Verdugo MD Resident Activity Tracking Resident Involvement: Resident Care Provided Care Provided: Adult Hospital Medicine
--- NOTE | 2024-02-14 08:43 | Discharge Summary ---
Discharge Summary Date of Service February 14, 2024 pronouncement 02/14/24 at 0628 am cause of is renal failure, secondary to Cirrhosis, secondary to Hepatocellular carcinoma Principal Dx & Hospital Course #1 = Principal Diagnosis (1) Acute kidney injury superimposed on chronic kidney disease: In setting of recent daaw-nq-qsfg paracentesis with extensive fluid drainage with continued diuretic use Initially suspected to be ATN from prerenal azotemia (2) Cirrhosis of liver: Chronic secondary to [place] with hepatocellular CA s/p paracentesis on 01/22 and 01/30 Comfort care has been decided on. She underwent another palliative paracentesis 02/11 with removal of about 4L of fluid (3) GI bleed: patient started passing blood clots did recieve transfusion support (4) Hyperkalemia: Due to worsening renal function Low potassium diet and Lokelma will be continued Oliguric Nephrology signed off Comfort measures has been decided on (5) Pleural effusion on left: Chest x-ray on 01/31 showed cardiomegaly with pulmonary vascular congestion as well as large left pleural effusion Patient is getting increasingly tachypneic Comfort care has been decided on (6) Type 2 diabetes mellitus with obesity: Chronic - Last a1c 5.2% in October 2023 - Currently appears to be on mixed 70/30 insulin - Hold Metformin d/t renal failure Comfort care has been decided on. Discontinue Accu-Cheks Admission HPI Per Admitting Provider Rufus is a 73 yo F with a pmhx of [place] cirrhosis with hepatocellular CA, DMT2 w/ CKD, renal cell CA s/p right nephrectomy, and DCIS who presents to the ER as a referral due to abnormal labs. Patient reports that she has had two paracentesis procedures in the past 2 weeks. First was on 01/22, at which time she had blood work demonstrating her baseline renal fxn with a creatinine of 1.4. She had approx 4L of acites removed. She then had repeat labs on 01/30 which showed a creatinine of 3.0 and a potassium of 5.9. Despite that, she underwent repeat paracentesis with approx 7.6L of fluid removed. She was then contacted due to the abnormal labs and instructed to come to the ER. Also of note, she was discharged from [facility] in Dec 2023 following a hospitalization for respiratory failure secondary to a large left pleural effusion and was discharged on an increased dose of spironolactone (was prior on 50mg and was increased to 100mg at time of discharge). She currently endorses decreased urinary frequency but is not able to state when she first noticed this. She denies hematuria, flank pain/back pain, dysuria, pruritus, n/v, or anorexia. She did not take any of her morning medications today or eat breakfast. Her repeat lab in the ED show a creatinine of 3.91 and a potassium of 6.8. She does have a h/o CKD and is established with [facility] nephrology. She currently denies dyspnea, palpitations, or chest pain. She was medicated with a dose of Albumin, regular insulin, calcium gluconate, Albuterol, patiromer, and a dose of sodium bicarbonate. She has been referred to the hospital medicine team for admission. Discharge Exam pt pronounced by covering physician on comfort measures Discharge Plan Discharge Items Patient Disposition: Other Date/Time: 02/14/24 06:28 Hospital Stay Data Consultations 02/01/24 11:38 ED Decision to Admit Stat 02/01/24 14:52 Consult Nephrology Routine 02/02/24 15:20 Consult Pulmonology Routine 02/11/24 15:50 Consult Gastroenterology Routine Diagnostic Imagining Performed 02/01/24 12:08 US renal/blad retro comp Urgent 02/12/24 07:00 IR paracentesis abd w/img US Routine Total Time Total Time Spent Total Time Spent (In Minutes): greater than 30 minutes required to complete including covering physician pronouncement Coding Level of Care Code 98997 INP/OBS DISCH >30 MIN Diagnoses Acute kidney injury superimposed on chronic kidney disease N17.9; N18.9 Cirrhosis of liver K74.60 GI bleed K92.2 Hyperkalemia E87.5 Pleural effusion on left J90 Type 2 diabetes mellitus with obesity E11.69; E66.9
--- NOTE | 2024-02-15 10:38 | Coding Query ---
CODING QUERY To promote full compliance with coding requirements relating to patient care, provider participation is requested in all cases of tube filler uncertainty. Please assist us with the question(s) below: Coding Question(s): Pt admitted with SHIREEN d/t paracentesisx2 and diuretics. 02/10 addendum progress note stated GI variceal bleed. Please document, if known or suspected, the site of the variceal bleed. Thanks for your help! Pancho Stone [facility] Physician's Response(s): site unknown Principal Diagnosis: "that condition established after study, to be chiefly responsible for occasioning the admission of the patient to the hospital for care." Co-Existing Principal Diagnosis: "when two or more diagnoses equally meet the criteria for principal diagnosis as determined by the circumstances of admission, diagnostic work up, and/or therapy provided, and the Alphabetic Index, Tabular List, or another coding guideline does not provide sequencing direction, any one of the diagnoses may be sequenced first." "When the physician has documented what appears to be a current diagnosis in the body of the record, but has not included the diagnosis in the final diagnostic statement, the physician should be asked whether the diagnosis should be added." (Source Coding Clinic 2 QTR90. p3-4) OLESYA
== END 2024-02-14 07:00 | disposition expired | DRG 683 ==
LOC: ED 08:38 → SUATTDRO 12:07 → 2S 12:07 → 3E 02-04 12:54